=== PATIENT | male | born 1945 | race Asian ===

== ENCOUNTER 2020-06-15 08:52 | Outpatient (REF) | payer MEDICAID, SELFPAY ==
[2020-06-15 11:10] LABS: MANUAL DIFF FLAG NO
[2020-06-15 11:15] LABS: Basophils Absolute Auto 0.1 X10*3/uL (0.0-0.2); Basophils Percent Auto 0.9 % (0-2); Eosinophils Percent Auto 0.5 % (0-4); Hematocrit 41.4 % (42-52); Hemoglobin 13.4 g/dl (14.0-18.0); Imm Gran Abs Auto 0.01 X10*3/uL (0.00-0.03); Imm Gran Pct Auto 0.2 % (0.0-0.4); Lymphocytes Absolute Auto 2.8 X10*3/uL (1.2-4.9); Lymphocytes Percent Auto 42.4 % (20-40); Mean Corpuscular HGB Conc 32.4 g/dl (31.0-36.0); Mean Corpuscular Hemoglobin 29.3 pg (27.0-33.0); Mean Corpuscular Volume 90.4 fL (80-98); Mean Platelet Volume 11.3 fL (9.4-12.4); Monocytes Absolute Auto 0.5 X10*3/uL (0.1-1.2); Monocytes Percent Auto 7.2 % (2-11); Neutrophils Absolute Auto 3.2 X10*3/uL (2.0-8.3); Neutrophils Percent Auto 48.8 % (45-73); Platelet Count 232 X10*3/uL (160-400); Red Blood Count 4.58 X10*6/uL (4.60-5.80); Red Cell Distribution Width 12.2 % (11.0-16.0); White Blood Count 6.5 X10*3/uL (4.8-10.8)
[2020-06-15 12:10] LABS: TSH reflex Free T4 0.75 uIU/mL (0.32-4.0)
[2020-06-15 12:15] LABS: Alanine Aminotransferase 26 U/L (0-40); Albumin Level 4.4 g/dL (3.5-5.0); Alkaline Phosphatase 89 U/L (39-117); Anion Gap 15 (12-20); Aspartate Amino Transferase 16 U/L (5-37); Bilirubin Direct 0.3 mg/dL (0.0-0.5); Bilirubin Total 0.8 mg/dL (0.0-1.0); Blood Urea Nitrogen 12 mg/dL (9-16); Calcium 9.2 mg/dL (8.4-10.2); Carbon Dioxide 26 mmol/L (22-29); Chloride 105 mmol/L (96-108); Cholesterol 139 mg/dL; Estimated Glomerular Filt Rate > 60; Glucose Fasting 90 mg/dL (60-99); HDL Cholesterol 41 mg/dL; LDL Cholesterol Calculated 74 mg/dl; Potassium 3.7 mmol/L (3.3-5.1); Sodium 142 mmol/L (135-145); Total Protein 7.3 g/dL (6.5-8.0); Triglycerides 124 mg/dL; Uric Acid 8.1 mg/dL (3.4-7.0)
[2020-06-15 12:50] LABS: Prostate Specific Antigen 1.33 ng/mL (<0.05-4.0)
== END 2020-06-15 08:53 | disposition home or self-care (01) ==
LOC: HO.HMGCLDS 08:52
PROVIDERS: PCP Internal Medicine; Visit Provider Internal Medicine
DX: E78.9 Disorder of lipoprotein metabolism, unspecified (principal); I10 Essential (primary) hypertension; Z12.11 Encounter for screening for malignant neoplasm of colon; Z76.89 Persons encountering health services in other specified circumstances
CPT/HCPCS: 36415; 80048; 80061; 80076; 84153; 84443; 84550; 85025

== ENCOUNTER 2020-07-02 14:30 | Outpatient (REF) | payer MEDICAID, SELFPAY ==
--- NOTE | ~2020-07-02 | XR_ITS ---
EXAMINATION: XR CHEST CLINICAL INFORMATION: Essential hypertension COMPARISON: None TECHNIQUE: 2 views of the chest were obtained. FINDINGS: The lungs are well expanded. There is no focal consolidation, edema, or effusion. No pneumothorax. The cardiomediastinal silhouette is within normal limits. No acute osseous abnormality. XR/XR chest 2V IMPRESSION: No acute pulmonary finding.
--- NOTE | 2020-07-02 15:53 | ECG_ITS ---
Test Reason : PREOP Blood Pressure : / mmHG Vent. Rate : 069 BPM Atrial Rate : 069 BPM P-R Int : 214 ms QRS Dur : 088 ms QT Int : 422 ms P-R-T Axes : 058 055 085 degrees QTc Int : 452 ms Sinus rhythm with 1st degree A-V block Increased R/S ratio in V1, consider early transition or posterior infarct Abnormal ECG No previous ECGs available Referred By: Turner Torres Electronically Signed By:Calixto Heller
== END 2020-07-02 14:31 | disposition home or self-care (01) ==
LOC: HO.XRAY 14:30
PROVIDERS: Visit Provider Internal Medicine Gastroenterology
DX: I10 Essential (primary) hypertension (principal)
CPT/HCPCS: 71046; 93005; 99202

== ENCOUNTER 2020-07-09 10:32 | Emergency (ER) | payer MEDICAID, SELFPAY ==
--- NOTE | ~2020-07-09 | XR_ITS ---
EXAMINATION: XR WRIST, RIGHT CLINICAL INFORMATION: Pain COMPARISON: None TECHNIQUE: The right wrist is imaged in 4 views. FINDINGS: There is no fracture, dislocation, or destructive process. 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 There is no focal joint narrowing or erosive change. There is borderline narrowing triscaphe joint. There is tiny subchondral cyst distal ulnar. There is no definite chondrocalcinosis. Bony mineralization is normal. The pronator quadratus fat pad is normal. XR/XR wrist RT min 3V IMPRESSION: 1. Congenital lunotriquetral fusion. 2. No fracture, dislocation, or erosive changes.
[2020-07-09 10:43] VITALS: BP 151/88; BP 164/85; PULSE 79; RESP 18; TEMP 36.6; O2SAT 98; BMI 28.0
--- NOTE | 2020-07-09 10:59 | ED_ITS ---
HPI - Extremity Problem General Chief complaint: Extremity Problem Stated complaint: RIGHT WRIST PAIN NO KNOWN INJURY Time Seen by Provider: 07/09/20 10:53 History of Present Illness HPI Narrative: Complains of pain in the right wrist over the past 12 hours, patient has history of gout, there has been no fever chills, no swelling of any other joint, denies any rash, pain is mild to moderate, it is very painful to attempt to bend his wrist or extend his wrist Related Data Home Medications Medication Instructions Recorded Confirmed atorvastatin 40 mg tablet 40 mg PO DAILY 06/12/20 07/10/20 Previous Rx's Medication Instructions Recorded atenolol 50 mg tablet 50 mg PO BID 90 Days #180 tab 06/12/20 bisacodyl 5 mg tablet,delayed 10 mg PO BEDTIME 2 Days #4 tab 07/02/20 release polyethylene glycol 3350 17 17 g PO DAILY 1 Days #238 g 07/02/20 gram/dose oral powder naproxen [Naprosyn] 500 mg PO BID #14 tab 07/09/20 prednisone 60 mg PO DAILY 4 Days #12 tab 07/09/20 Allergies Allergy/AdvReac Type Severity Reaction Status Date / Time Sulfa (Sulfonamide Allergy Severe ANAPHYLAXIS Verified 07/10/20 11:14 Antibiotics) [SULFA (SULFONAMIDE ANTIBIOTICS)] Review of Systems Review of Systems: Positive for right wrist pain Negatives are no fever no chills no dizziness no neck pain no back pain no skin rash no pain in any other joints no numbness or weakness Yes all other systems are reviewed and are negative [facility] Past Medical History Attestation statement: The following information was validated with the patient. 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 Physical Exam Vital Signs: Vital Signs: Last Vital Signs Temp 98.8 F 07/09/20 11:49 Pulse 64 07/09/20 11:49 Resp 18 07/09/20 11:49 BP 166/84 H 07/09/20 11:49 Pulse Ox 97 07/09/20 11:49 Body Mass Index 28.0 General appearance is no acute distress relaxed and cooperative Head is normocephalic atraumatic The neck is supple Respiratory no acute distress The back has full range of motion Extremities the right wrist is mildly swollen, it is not red or warm, range of motion is limited on flexion and extendsion, it is neurovascular intact distal, skin color is normal The rest of extremities are normal and his gait is normal Skin no rash Neuro no focal deficit motor is 5/5 x4, sensation is intact and symmetrical, patient is A&O x3 Course Course Course Narrative: Doubt septic arthritis as patient's pain was relieved signif icantly with Naprosyn, white count was normal, ESR was normal and CRP was normal, uric acid was upper limit of normal, but does not always correlate with gout flare Patient's symptoms most likely from gout so patient is started on prednisone X-ray of the right wrist did not reveal any acute abnormalities MDM - Extremity (Nontraumatic) Lab Data Result diagrams: 07/09/20 12:17 Labs: Lab Results 07/09/20 07/09/20 07/09/20 Range/Units 12:17 12:17 12:17 WBC (4.8-10.8) X10*3/uL RBC (4.60-5.80) X10*6/uL Hgb (14.0-18.0) g/dl Hct (42-52) % MCV (80-98) fL MCH (27.0-33.0) pg MCHC (31.0-36.0) g/dl RDW (11.0-16.0) % Plt Count (160-400) X10*3/uL MPV (9.4-12.4) fL Immature Gran % (Auto) (0.0-0.4) % Neut % (Auto) (45-73) % Lymph % (Auto) (20-40) % [place] % (Auto) (2-11) % Eos % (Auto) (0-4) % Baso % (Auto) (0-2) % Lymph # (Auto) (1.2-4.9) X10*3/uL [place] # (Auto) (0.1-1.2) X10*3/uL Eos # (Auto) (0.0-0.4) X10*3/uL Baso # (Auto) (0.0-0.2) X10*3/uL Abs Immat Gran (auto) (0.00-0.03) X10*3/uL Absolute Neuts (auto) (2.0-8.3) X10*3/uL Absolute Nucleated RBC (0.0-0.012) X10*3/uL Nucleated RBC % (auto) (0.0-0.2) /100WBC ESR 13 (0-15) MM/HR Uric Acid 7.0 (3.4-7.0) mg/dL C-Reactive Protein 0.10 (< or = 0.50) mg/dL 07/09/20 Range/Units 12:17 WBC 8.6 (4.8-10.8) X10*3/uL RBC 4.41 L (4.60-5.80) X10*6/uL Hgb 13.1 L (14.0-18.0) g/dl Hct 40.1 L (42-52) % MCV 90.9 (80-98) fL MCH 29.7 (27.0-33.0) pg MCHC 32.7 (31.0-36.0) g/dl RDW 12.4 (11.0-16.0) % Plt Count 216 (160-400) X10*3/uL MPV 10.8 (9.4-12.4) fL Immature Gran % (Auto) 0.3 (0.0-0.4) % Neut % (Auto) 70.5 (45-73) % Lymph % (Auto) 20.3 (20-40) % [place] % (Auto) 7.6 (2-11) % Eos % (Auto) 0.5 (0-4) % Baso % (Auto) 0.8 (0-2) % Lymph # (Auto) 1.8 (1.2-4.9) X10*3/uL [place] # (Auto) 0.7 (0.1-1.2) X10*3/uL Eos # (Auto) 0.0 (0.0-0.4) X10*3/uL Baso # (Auto) 0.1 (0.0-0.2) X10*3/uL Abs Immat Gran (auto) 0.03 (0.00-0.03) X10*3/uL Absolute Neuts (auto) 6.1 (2.0-8.3) X10*3/uL Absolute Nucleated RBC 0.000 (0.0-0.012) X10*3/uL Nucleated RBC % (auto) 0.0 (0.0-0.2) /100WBC ESR (0-15) MM/HR Uric Acid (3.4-7.0) mg/dL C-Reactive Protein (< or = 0.50) mg/dL Discharge Plan Discharge Clinical Impression: Gout Patient Disposition: Home, Self-Care Instructions: Gout (ED) Additional Instructions: This is unlikely to be an infected joint and we are treating for probable gout Follow as scheduled with her primary doctor tomorrow for re-evaluation Return to ER any time for spreading redness worse pain and swelling fever, any worse condition or any concerns Prescriptions: New naproxen [Naprosyn] 500 mg tablet 500 mg PO BID Qty: 14 RF: 0 prednisone 20 mg tablet 60 mg PO DAILY 4 Days Qty: 12 RF: 0 No Action atorvastatin 40 mg tablet 40 mg PO DAILY RF: 0 atenolol 50 mg tablet 50 mg PO BID 90 Days Qty: 180 RF: 0 bisacodyl [Dulcolax (bisacodyl)] 5 mg tablet,delayed release (DR/EC) 10 mg PO BEDTIME 2 Days Qty: 4 RF: 0 polyethylene glycol 3350 [Miralax] 17 gram/dose powder 17 g PO DAILY 1 Days Qty: 238 RF: 0 Interventions: ED Discharge Assessment Last Done: 07/09/20 14:03 Discharge Date/Time: 07/09/20 14:04
[2020-07-09 11:49] VITALS: BP 166/84; PULSE 64; RESP 18; TEMP 37.1; O2SAT 97
[2020-07-09] MEDS: NaPROXEN 500 MG TABLET PO (12:08)
[2020-07-09 12:26] LABS: MANUAL DIFF FLAG NO
[2020-07-09 12:30] LABS: Basophils Absolute Auto 0.1 X10*3/uL (0.0-0.2); Basophils Percent Auto 0.8 % (0-2); Eosinophils Percent Auto 0.5 % (0-4); Hematocrit 40.1 % (42-52); Hemoglobin 13.1 g/dl (14.0-18.0); Imm Gran Abs Auto 0.03 X10*3/uL (0.00-0.03); Imm Gran Pct Auto 0.3 % (0.0-0.4); Lymphocytes Absolute Auto 1.8 X10*3/uL (1.2-4.9); Lymphocytes Percent Auto 20.3 % (20-40); Mean Corpuscular HGB Conc 32.7 g/dl (31.0-36.0); Mean Corpuscular Hemoglobin 29.7 pg (27.0-33.0); Mean Corpuscular Volume 90.9 fL (80-98); Mean Platelet Volume 10.8 fL (9.4-12.4); Monocytes Absolute Auto 0.7 X10*3/uL (0.1-1.2); Monocytes Percent Auto 7.6 % (2-11); Neutrophils Absolute Auto 6.1 X10*3/uL (2.0-8.3); Neutrophils Percent Auto 70.5 % (45-73); Platelet Count 216 X10*3/uL (160-400); Red Blood Count 4.41 X10*6/uL (4.60-5.80); Red Cell Distribution Width 12.4 % (11.0-16.0); White Blood Count 8.6 X10*3/uL (4.8-10.8)
[2020-07-09 13:18] LABS: Erythrocyte Sedimentation Rate 13 MM/HR (0-15)
[2020-07-09] MEDS: Acetaminophen 325 MG TABLET 975 MG PO (13:52)
[2020-07-09] MEDS: predniSONE 20 MG TABLET 60 MG PO (13:52)
== END 2020-07-09 14:04 | disposition home or self-care (01) ==
PROVIDERS: Physician Assistant Medical; Emergency Provider Emergency Medicine; PCP Internal Medicine
DX: M10.031 Idiopathic gout, right wrist (principal); I10 Essential (primary) hypertension; E78.5 Hyperlipidemia, unspecified
CPT/HCPCS: 36415; 73110; 84550; 85025; 85652; 86140; 99283; 99284

== ENCOUNTER 2020-07-30 07:32 | Day surgery (SDC) | payer MEDICAID, SELFPAY ==
[2020-07-24 10:06] VITALS: BMI 28.0
--- NOTE | 2020-07-27 09:36 | P.CONAN_ITS ---
Documented by User: Jennifer Oly 07/27/20 09:40 HPI - Anesthesia Eval Consult details Narrative: 75yo M for Upper Endoscopy and Colonoscopy PMF Active Problems Active Problems: All Active Problems (Updated 07/10/20 @ 11:41 by Kaitlyn Bowman MD) Gouty arthritis (Acute) Hospital discharge follow-up (Acute) Anemia (Acute) Lipid disorder (Acute) Hypertension, essential (Acute) Colon cancer screening (Acute) Establishing care with new doctor, encounter for (Acute) Past Medical History Medical History Hyperlipidemia Hypertension Surgical History Surgical History (Updated 07/30/20 @ 08:17 by Marta Cartagena) H/O hemorrhoidectomy Social History Social History Household Members: Spouse Are you a primary md do resident urgent care to a significant other at home: No Do you presently have visiting nurse or other home services: No Alcohol intake: never Smoking Status: Never smoker Use of substances other than those prescribed or required for medical reasons: No Have you been hit, kicked, punched, or otherwise hurt by someone within the past year? 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 Meds Allergies Allergy/AdvReac Type Severity Reaction Status Date / Time Sulfa (Sulfonamide Allergy Severe ANAPHYLAXIS Verified 07/10/20 11:14 Antibiotics) [SULFA (SULFONAMIDE ANTIBIOTICS)] Home Medications Medication Instructions Recorded Confirmed Last Taken Type atorvastatin 40 mg tablet 40 mg PO DAILY 06/12/20 07/24/20 Unknown History Exam Exam Date and Time: July 27, 2020 0936 Height,Weight and Vital Signs: Height 5 ft 9 in Weight 86.183 kg Pertinent Lab Results Pertinent Lab Results: Laboratory Tests 06/15/20 07/09/20 09:02 12:17 WBC 8.6 Hgb 13.1 L Hct 40.1 L Plt Count 216 Sodium 142 Potassium 3.7 Chloride 105 Carbon Dioxide 26 BUN 12 Creatinine 0.99 Narrative Narrative: EKG 06/2020 Vent. Rate : 069 BPM Atrial Rate : 069 BPM P-R Int : 214 ms QRS Dur : 088 ms QT Int : 422 ms P-R-T Axes : 058 055 085 degrees QTc Int : 452 ms Sinus rhythm with 1st degree A-V block Increased R/S ratio in V1, consider early transition or posterior infarct Abnormal ECG No previous ECGs available XR chest 2V 06/2020 IMPRESSION: No acute pulmonary finding. Assessment and Plan Assessment Anesthesia Assessment: Chart Reviewed Documented by User: Marta Cartagena 07/30/20 08:20 [facility] Past Medical History Medical History Hyperlipidemia Hypertension Family History Family history of problems with anesthesia: No Surgical History Surgical History (Updated 07/30/20 @ 08:17 by Marta Cartagena) H/O hemorrhoidectomy History of Problems with Anesthesia: No Social History Social History Household Members: Spouse Are you a primary md do resident urgent care to a significant other at home: No Do you presently have visiting nurse or other home services: No Alcohol intake: never Smoking Status: Never smoker Use of substances other than those prescribed or required for medical reasons: No Have you been hit, kicked, punched, or otherwise hurt by someone within the past year? 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 Meds Allergies Allergy/AdvReac Type Severity Reaction Status Date / Time Sulfa (Sulfonamide Allergy Severe ANAPHYLAXIS Verified 07/10/20 11:14 Antibiotics) [SULFA (SULFONAMIDE ANTIBIOTICS)] Home Medications Medication Instructions Recorded Confirmed Last Taken Type atorvastatin 40 mg tablet 40 mg PO DAILY 06/12/20 07/24/20 Unknown History Exam Height,Weight and Vital Signs: Vital Signs Temp Pulse Resp BP Pulse Ox 07/30/20 08:08 98.1 F 74 16 161/98 H 97 Airway Mallampati Class: II TM Dist: >3cm Neck ROM: Full Denture: Upper and Lower Heart: RRR Lungs: CTAB Assessment and Plan Assessment Anesthesia Assessment: Anesthesia Plan Discussed and Chart Reviewed Final Anesthetic Review NPO: Yes ASA Class: II Final Preanesthetic Review: No Changes in Pt Med Stat, Meds/Allgs Chart Reviewed, Consent Obtained/Reviewed and Anes Risks/Benef Reviewed Patient Risk: Low Procedure Risk: Low Assessment/Block/Sedation in SS: Assess/Block/Sedation-SS Anesthetic Plan Anesthetic Plan: MAC: Disposition: Standard PACU
--- NOTE | 2020-07-30 08:05 | W.PM.OPN ---
Operative Note Operative Note Date of Service: 07/30/20 Narrative: Pre-op diagnosis: Colon cancer screening, anemia Post-op diagnosis: other (Gastritis, colon polyp, diverticulosis or hemorrhoids) Procedure: FLEXIBLE TRANSORAL UPPER GASTROINTESTINAL ENDOSCOPY WITH BIOPSIES AND COLONOSCOPY TILL CECUM WITH BIOPSIES AND SNARE POLYPECTOMY UPPER ENDOSCOPY Consent: Indications for the procedure and potential complications of bleeding, perforation, reaction to medications and missed diagnosis were discussed with the patient and informed consent was obtained. Instrument: Olympus GIF H 190 mid size upper endoscope Monitoring: Vital signs and clinical assessment, continuous EKG monitoring, Pulse oximetry, Carbon Dioxide monitoring and blood pressure monitoring were done throughout the procedure. Procedure: The patient was placed in the left lateral decubitis position and pre-procedure medications were administered and a bite block was placed. The endoscope was inserted into the mouth and advanced under direct vision to the third part of duodenum. A careful inspection was made as the upper endoscope was withdrawn including a retroflexed examination of the proximal stomach; Findings and interventions are described below. Findings: Larynx: Normal Esophagus: GE junction at 38 cms. No esophagitis or Apple's. Stomach: Mild gastric erythema. Biopsies were obtained. Grade 2 flap valve on retroflexed examination of the cardia. Duodenum: Normal bulb and descending duodenum. Biopsies obtained from 3rd part of duodenum to check for celiac sprue. Intervention: Biopsies as noted above COLONOSCOPY PROCEDURE NOTE Consent: Indications for the procedure and potential complications of bleeding, perforation, reaction to medications and missed diagnosis were discussed with the patient and informed consent was obtained. Instrument: Olympus PCF H 190 L variable stiffness pediatric colonoscope Monitoring: Vital signs and clinical assessment, intermittent blood pressure monitoring, continuous EKG monitoring, Pulse oximetry and Carbon Dioxide monitoring were done throughout the procedure. Colon withdrawl time was 33 minutes. Procedure: The patient was placed in the left lateral decubitis position and pre-procedure medications were administered. After a digital rectal examination of the ano-rectum, the video colonoscope was inserted into the rectum and advanced through the colon to the cecum. The colonoscope was slowly withdrawn in a retrograde panoramic fashion and the colon mucosa was carefully examined including a retroflexed view of the rectum. Findings and interventions are described below. Procedure Difficulty: : LLQ pressure applied to intubate the cecum Findings: Terminal Ileum: Not evaluated Cecum: Normal Ascending Colon: Normal Transverse Colon: A 10-12 mm sessile polyp inadvertently removed with a cold snare and polypectomy site treated with cautery using the snare tip. Descending Colon: Two 4-6 mm sessile polyps removed with a cold biopsy Sigmoid Colon: A 7-8 mm sessile polyp removed with a cold snare and moderate diverticulosis Rectum: Normal Ano-rectum: Moderate internal hemorrhoids Colon preparation: Good after copious irrigation and fair in the left colon Impression and Post Procedure Diagnosis: Endoscopy Findings: STOMACH: Mild antral gastritis DUODENUM: Normal - biopsied to check for celiac sprue Colonoscopy Findings: Four small to medium sized polyps removed Moderate diverticulosis seen in the sigmoid colon Moderate hemorrhoids on retroflexed exam. Plan: Await pathology results Patient has an appointment on 08/16/20 in the GI [facility] with Turner Torres M.D. Repeat Colonoscopy interval based on path results - in 3-5 years if polyps are adenomatous and 10 years if polyps are hyperplastic. Above findings were reviewed with the patient and colon polyps and diverticulosis handouts were given in the discharge area Surgeon: Turner Torres MD Anesthesia: MAC (Lisa Heredia, LESLEE) Rest Room Attendant: Kristin Lopez Estimated blood loss (mL): 0 Pathology: other (A. SMALL BOWEL BXS, R/O CELIAC B. GASTRIC ANTRUM, R/O H. PYLORI C. TRANSVERSE COLON POLYP D. DESCENDING COLON POLYPS E. SIGMOID POLYP) Condition: stable Disposition: PACU
--- NOTE | 2020-07-30 08:07 | MHC.SHP ---
Pre-Procedural Eval Section A The patient is an INPATIENT: No Changes since office visit: Yes Patient answered all questions; No Cold of Flu in the past 2 weeks, No New Medical Problems and No Changes in Medication The History & Physical has been completed within 30 days and I have reviewed it.: Yes Section B Chief Complaint: screening,epigastric pain Allergies: Allergies Allergy/AdvReac Type Severity Reaction Status Date / Time Sulfa (Sulfonamide Allergy Severe ANAPHYLAXIS Verified 07/10/20 11:14 Antibiotics) [SULFA (SULFONAMIDE ANTIBIOTICS)] Plan I have reviewed the history and physical and performed a pertinent physical examination on my patient. No changes have occurred unless specified.
[2020-07-30 08:08] VITALS: BP 161/98; PULSE 74; RESP 16; TEMP 36.7; O2SAT 97
[2020-07-30] MEDS: Lactated Ringers 1,000 ML 100 ML IVCONT (08:21)
[2020-07-30 09:36] VITALS: BP 130/79; PULSE 57; RESP 20; TEMP 36.1; O2SAT 98
[2020-07-30 09:51] VITALS: BP 127/72; PULSE 59; RESP 18; TEMP 36.1; O2SAT 95
== END 2020-07-30 10:31 | disposition home or self-care (01) ==
PROVIDERS: PCP Internal Medicine; Visit Provider Internal Medicine Gastroenterology
PROC: (CPT 45385; principal; 2020-07-30 08:30)
DX: Z12.11 Encounter for screening for malignant neoplasm of colon (principal); D12.3 Benign neoplasm of transverse colon; D12.4 Benign neoplasm of descending colon; K57.30 Diverticulosis of large intestine without perforation or abscess without bleeding; K64.8 Other hemorrhoids; D64.9 Anemia, unspecified; K29.70 Gastritis, unspecified, without bleeding; I10 Essential (primary) hypertension; Z79.899 Other long term (current) drug therapy; Z88.2 Allergy status to sulfonamides
CPT/HCPCS: 45385; 45380; 43239; 88305; 88342

== ENCOUNTER → 2020-09-03 10:37 | Outpatient (BNVA) | payer MEDICAID, SELFPAY | PROVIDERS: Visit Provider Internal Medicine Gastroenterology ==

== ENCOUNTER → 2020-11-12 13:24 | Outpatient (BNVA) | payer MEDICAID, SELFPAY | PROVIDERS: Referring Provider Internal Medicine; Visit Provider Internal Medicine Gastroenterology | DX: K29.70 Gastritis, unspecified, without bleeding (principal); D64.9 Anemia, unspecified; B96.81 Helicobacter pylori [H. pylori] as the cause of diseases classified elsewhere; Z86.010 Personal history of colon polyps | CPT/HCPCS: 99212 ==

== ENCOUNTER 2021-02-22 21:19 | Emergency (ER) | payer MEDICAID, SELFPAY ==
[2021-02-22 21:24] VITALS: BP 172/98
[2021-02-22 21:27] VITALS: BP 151/87; PULSE 76; RESP 18; TEMP 36.9; O2SAT 95; BMI 28.4
[2021-02-23 02:00] VITALS: BP 199/108; PULSE 65; RESP 16; TEMP 36.6; O2SAT 99
[2021-02-23 02:15] LABS: MANUAL DIFF FLAG NO
--- NOTE | 2021-02-23 02:15 | PC.NURSE ---
SHANTELLE ANDERSON IS AWARE OF PATIENT HIGH BLOOD PRESSURE .
[2021-02-23 02:18] LABS: Basophils Percent Auto 0.5 % (0-2); Eosinophils Absolute Auto 0.1 X10*3/uL (0.0-0.4); Eosinophils Percent Auto 1.5 % (0-4); Hematocrit 35.8 % (42-52); Hemoglobin 11.6 g/dl (14.0-18.0); Imm Gran Abs Auto 0.02 X10*3/uL (0.00-0.03); Imm Gran Pct Auto 0.3 % (0.0-0.4); Lymphocytes Absolute Auto 2.3 X10*3/uL (1.2-4.9); Mean Corpuscular HGB Conc 32.4 g/dl (31.0-36.0); Mean Corpuscular Hemoglobin 29.6 pg (27.0-33.0); Mean Corpuscular Volume 91.3 fL (80-98); Monocytes Absolute Auto 0.7 X10*3/uL (0.1-1.2); Monocytes Percent Auto 8.9 % (2-11); Neutrophils Absolute Auto 4.3 X10*3/uL (2.0-8.3); Neutrophils Percent Auto 57.8 % (45-73); Platelet Count 187 X10*3/uL (160-400); Red Blood Count 3.92 X10*6/uL (4.60-5.80); Red Cell Distribution Width 12.9 % (11.0-16.0); White Blood Count 7.4 X10*3/uL (4.8-10.8)
--- NOTE | 2021-02-23 02:28 | ECG_ITS ---
Test Reason : high blood pressure Blood Pressure : / mmHG Vent. Rate : 064 BPM Atrial Rate : 064 BPM P-R Int : 234 ms QRS Dur : 084 ms QT Int : 436 ms P-R-T Axes : 058 069 088 degrees QTc Int : 449 ms Sinus rhythm with 1st degree A-V block Minimal voltage criteria for LVH, may be normal variant ( Sokolow-Rendon ) Borderline ECG No significant changes seen Referred By: Marina Hubbard Electronically Signed By:ARELIS MUÑOZ MD
[2021-02-23 02:33] LABS: Alanine Aminotransferase 24 U/L (0-40); Albumin Level 3.9 g/dL (3.5-5.0); Alkaline Phosphatase 91 U/L (39-117); Anion Gap 12 (12-20); Aspartate Amino Transferase 16 U/L (5-37); Bilirubin Total 0.7 mg/dL (0.0-1.0); Blood Urea Nitrogen 20 mg/dL (9-16); COVID-19 Test Negative (Negative); Calcium 8.6 mg/dL (8.4-10.2); Carbon Dioxide 24 mmol/L (22-29); Chloride 108 mmol/L (96-108); Creatinine Clr Calc Pharmacy 57.2; Estimated Glomerular Filt Rate 59; Glucose Random 99 mg/dL (60-115); Potassium 3.9 mmol/L (3.3-5.1); Sodium 140 mmol/L (135-145); Total Protein 6.5 g/dL (6.5-8.0)
[2021-02-23 02:36] LABS: Troponin-I High Sensitivity < 3.5 ng/L (<3.5-35.0)
--- NOTE | 2021-02-23 02:41 | ED.HA ---
HPI - Headache General Chief Complaint: Headache Stated Complaint: ear ache/headache Time Seen by Provider: 02/23/21 02:15 Source: patient Mode of arrival: EMS History of Present Illness HPI Narrative: 75-year-old male with headache since noon on left side without neuro symptoms as well as describing some chest discomfort that was not associated with nausea, dizziness, shortness of breath and denies that it radiated anywhere and has improved since noon. Patient did take Tylenol at approximately 3:00 p.m. this afternoon and otherwise states that he is taking his blood pressure medication. He states he otherwise simply does not feel well though he denies any GI or symptoms. Related Data Previous Rx's Medication Instructions Recorded walker with wheels and seat #1 ea 12/25/20 walker #1 ea 12/25/20 atenolol 50 mg tablet 50 mg PO BID 90 Days #180 tab 01/01/21 atorvastatin 40 mg tablet 40 mg PO DAILY 90 Days #90 tab 01/01/21 indomethacin 50 mg capsule 50 mg PO BID #14 cap 01/01/21 amoxicillin 875 mg-potassium 1 tab PO Q12H #20 tab 01/31/21 clavulanate 125 mg tablet (Augmentin) prednisone 20 mg tablet 40 mg PO DAILY #10 tab 01/31/21 Allergies Allergy/AdvReac Type Severity Reaction Status Date / Time Sulfa (Sulfonamide Allergy Severe ANAPHYLAXIS Verified 01/31/21 11:07 Antibiotics) [SULFA (SULFONAMIDE ANTIBIOTICS)] [facility] Past Medical History Medical History Hyperlipidemia Hypertension Surgical History H/O hemorrhoidectomy Hx of colonoscopy Hx of esophagogastroduodenoscopy Social History Social History Household Members: Spouse Are you a primary account executive healthcare to a significant other at home: No Do you presently have visiting nurse or other home services: No Alcohol intake: never Advance Directives: No Current occupational status: employed 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 Review of all investigations there are no acute findings and patient is blood pressure noted to respond or to antihypertensives and his headache is completely resolved after receiving Tylenol. There were no focal findings to suggest acute intracranial pathology therefore CT scan of the head was not completed. Serial troponins and EKG are without acute findings. MDM - Headache Lab Data Result diagrams: 02/23/21 02:11 02/23/21 02:11 Labs: Lab Results 02/23/21 02/23/21 02/23/21 Range/Units 02:11 02:11 02:11 WBC 7.4 (4.8-10.8) X10*3/uL RBC 3.92 L (4.60-5.80) X10*6/uL Hgb 11.6 L (14.0-18.0) g/dl Hct 35.8 L (42-52) % MCV 91.3 (80-98) fL MCH 29.6 (27.0-33.0) pg MCHC 32.4 (31.0-36.0) g/dl RDW 12.9 (11.0-16.0) % Plt Count 187 (160-400) X10*3/uL MPV 11.0 (9.4-12.4) fL Immature Gran % (Auto) 0.3 (0.0-0.4) % Neut % (Auto) 57.8 (45-73) % Lymph % (Auto) 31.0 (20-40) % [place] % (Auto) 8.9 (2-11) % Eos % (Auto) 1.5 (0-4) % Baso % (Auto) 0.5 (0-2) % Lymph # (Auto) 2.3 (1.2-4.9) X10*3/uL [place] # (Auto) 0.7 (0.1-1.2) X10*3/uL Eos # (Auto) 0.1 (0.0-0.4) X10*3/uL Baso # (Auto) 0.0 (0.0-0.2) X10*3/uL Abs Immat Gran (auto) 0.02 (0.00-0.03) X10*3/uL Absolute Neuts (auto) 4.3 (2.0-8.3) X10*3/uL Absolute Nucleated RBC 0.000 (0.0-0.012) X10*3/uL Nucleated RBC % (auto) 0.0 (0.0-0.2) /100WBC Sodium 140 (135-145) mmol/L Potassium 3.9 (3.3-5.1) mmol/L Chloride 108 (96-108) mmol/L Carbon Dioxide 24 (22-29) mmol/L Anion Gap 12 (12-20) BUN 20 H D (9-16) mg/dL Creatinine 1.21 (0.5-1.4) mg/dL Estim Creat Clear Calc 57.2 Estimated GFR 59 Random Glucose 99 (60-115) mg/dL Calcium 8.6 D (8.4-10.2) mg/dL Total Bilirubin 0.7 (0.0-1.0) mg/dL AST 16 (5-37) U/L ALT 24 (0-40) U/L Alkaline Phosphatase 91 (39-117) U/L Troponin I High Sens (<3.5-35.0) ng/L Total Protein 6.5 (6.5-8.0) g/dL Albumin 3.9 (3.5-5.0) g/dL COVID-19 (CABRERA) Negative (Negative) COVID-19 Clin Com See Note 02/23/21 02/23/21 Range/Units 02:11 05:55 WBC (4.8-10.8) X10*3/uL RBC (4.60-5.80) X10*6/uL Hgb (14.0-18.0) g/dl Hct (42-52) % MCV (80-98) fL MCH (27.0-33.0) pg MCHC (31.0-36.0) g/dl RDW (11.0-16.0) % Plt Count (160-400) X10*3/uL MPV (9.4-12.4) fL Immature Gran % (Auto) (0.0-0.4) % Neut % (Auto) (45-73) % Lymph % (Auto) (20-40) % [place] % (Auto) (2-11) % Eos % (Auto) (0-4) % Baso % (Auto) (0-2) % Lymph # (Auto) (1.2-4.9) X10*3/uL [place] # (Auto) (0.1-1.2) X10*3/uL Eos # (Auto) (0.0-0.4) X10*3/uL Baso # (Auto) (0.0-0.2) X10*3/uL Abs Immat Gran (auto) (0.00-0.03) X10*3/uL Absolute Neuts (auto) (2.0-8.3) X10*3/uL Absolute Nucleated RBC (0.0-0.012) X10*3/uL Nucleated RBC % (auto) (0.0-0.2) /100WBC Sodium (135-145) mmol/L Potassium (3.3-5.1) mmol/L Chloride (96-108) mmol/L Carbon Dioxide (22-29) mmol/L Anion Gap (12-20) BUN (9-16) mg/dL Creatinine (0.5-1.4) mg/dL Estim Creat Clear Calc Estimated GFR Random Glucose (60-115) mg/dL Calcium (8.4-10.2) mg/dL Total Bilirubin (0.0-1.0) mg/dL AST (5-37) U/L ALT (0-40) U/L Alkaline Phosphatase (39-117) U/L Troponin I High Sens < 3.5 < 3.5 (<3.5-35.0) ng/L Total Protein (6.5-8.0) g/dL Albumin (3.5-5.0) g/dL COVID-19 (CABRERA) (Negative) COVID-19 Clin Com ECG Data Attestation: I personally reviewed and interpreted this ECG as follows: Prior ECG tracings: available for review (07/09/2020 no acute changes on comparison) Interpretation: Sinus rhythm with first-degree AV block, HR-64, no STEMI, QRS/QTC are within normal limits. Discharge Plan Discharge Clinical Impression: Hypertension, Chest pain Patient Disposition: Home, Self-Care Instructions: Chest Pain (ED) Additional Instructions: 1. Continue with your home medication. 2. Follow-up with your primary care provider on Thursday morning. Return to the ER for acute worsening of symptoms. Prescriptions: No Action (DME) walker with wheels and seat See Rx Instructions .Route .MEDSUPPLY Qty: 1 RF: 0 atenolol 50 mg tablet 50 mg PO BID 90 Days Qty: 180 RF: 0 atorvastatin 40 mg tablet 40 mg PO DAILY 90 Days Qty: 90 RF: 0 indomethacin 50 mg capsule 50 mg PO BID Qty: 14 RF: 0 prednisone 20 mg tablet 40 mg PO DAILY Qty: 10 RF: 0 amoxicillin-pot clavulanate [Augmentin] 875-125 mg tablet 1 tab PO Q12H Qty: 20 RF: 0 Referrals: Physician,Unknown J [Primary Care Provider] - 2 days
[2021-02-23] MEDS: amLODIPine Besylate 2.5 MG TABLET 7.5 MG PO (03:17)
[2021-02-23] MEDS: Acetaminophen 325 MG TABLET 975 MG PO (03:17)
[2021-02-23 04:38] VITALS: BP 140/69; PULSE 72; RESP 16; TEMP 36.2; O2SAT 95
[2021-02-23 05:50] VITALS: BP 148/72; PULSE 72; RESP 16; TEMP 36.1; O2SAT 95
[2021-02-23 06:23] LABS: Troponin-I High Sensitivity < 3.5 ng/L (<3.5-35.0)
== END 2021-02-23 07:33 | disposition home or self-care (01) ==
PROVIDERS: Emergency Provider Student in an Organized Health Care Education/Training Program
DX: R07.9 Chest pain, unspecified (principal); R51.9 Headache, unspecified; I10 Essential (primary) hypertension; Z20.822 Contact with and (suspected) exposure to COVID-19; Z79.899 Other long term (current) drug therapy
CPT/HCPCS: 0241U; 36415; 70450; 80048; 80053; 81003; 82550; 83735; 84484; 85025; 85610; 85730; 87635; 93005; 96365; 99283; 99284; 99285; 99291

== ENCOUNTER 2021-02-23 14:31 | Emergency (ER) | payer MEDICAID, SELFPAY ==
--- NOTE | 2021-02-23 | ECG_ITS ---
Test Reason : CHEST PAIN Blood Pressure : / mmHG Vent. Rate : 075 BPM Atrial Rate : 075 BPM P-R Int : 230 ms QRS Dur : 086 ms QT Int : 388 ms P-R-T Axes : 040 062 084 degrees QTc Int : 433 ms Sinus rhythm with 1st degree A-V block Nonspecific T wave abnormality Nonspecific ST abnormality Abnormal ECG No significant changes seen Referred By: Caitlin Bradford Electronically Signed By:ARELIS MUÑOZ MD
--- NOTE | ~2021-02-23 | CT_ITS ---
EXAMINATION: CT HEAD WITHOUT CONTRAST CLINICAL INFORMATION: Headache COMPARISON: None TECHNIQUE: Contiguous axial imaging was performed from the skull base to vertex without intravenous administration of contrast. This CT examination was performed using dose optimization techniques as appropriate, variously including the following: *Automated exposure control *Adjustment of mA and/or kV according to patient size (this includes techniques or standardized protocols for targeted exams where dose is matched to indication/reason for exam; i.e. extremities or head) *Use of iterative reconstruction technique DLP: 680 mGy-cm FINDINGS: Subdural hematoma layers along the right hemisphere predominantly involving the right frontal and parietal lobes. At the right high frontal convexity this measures approximately 1.2 cm as seen on the coronal view. There is 1 cm of leftward midline shift. The basal cisterns maintain patency. No acute territorial infarction. Calvarium is intact. Limited views of the paranasal sinuses are unremarkable. Mastoid air cells are well aerated and middle ear cavities are clear. Limited views of the orbits are unremarkable. CT/CT head/brain wo con IMPRESSION: There is a heterogeneous collection of fluid along the right frontoparietal convexity consistent with either subacute or acute on chronic subdural hematoma. This results in 1 cm leftward midline shift and compression of the right lateral ventricle. This critical result was discussed with Sandi BAH at 1545 hours on 02/23/2021 and it was ascertained that the content and urgency of the report was understood at the time of direct communication.
[2021-02-23 14:37] VITALS: PULSE 77; RESP 16; O2SAT 98; BMI 28.5
--- NOTE | 2021-02-23 14:45 | ED.GENADULT ---
HPI - General Adult General Chief complaint: Headache Stated complaint: head pain Time Seen by Provider: 02/23/21 14:39 Source: patient Mode of arrival: EMS Limitations: no limitations History of Present Illness HPI narrative: 75 year old male past medical history significant for hypertension, hyperlipidemia presents to the ED with weakness and headache x1 day. He reports generalized weakness, malaise, since being discharged from the hospital here yesterday. He also reports a frontal headache, he describes it as constant in nature, tightness localized to the front of his head bilateral without radiation. He denies changes in vision, photophobia, scotomas, chest pain, shortness of breath, fevers, chills, nausea, vomiting, diarrhea, abdominal pain, confusion, facial pressure, rhinorrhea, sore throat. No falls or injuries reported. No AC therapy or ASA. Denies alcohol use. Onset (ago): day(s) (1) Location: head Radiation: non-radiation Severity: severe Severity scale (1-10): 10 Quality: constant and other (tightnesss) Pain Consistency: constant Relieving factors: none Exacerbating factors: none Associated symptoms: weakness (generalized ) Treatments prior to arrival: none Related Data Previous Rx's Medication Instructions Recorded walker with wheels and seat #1 ea 12/25/20 walker #1 ea 12/25/20 atenolol 50 mg tablet 50 mg PO BID 90 Days #180 tab 01/01/21 atorvastatin 40 mg tablet 40 mg PO DAILY 90 Days #90 tab 01/01/21 indomethacin 50 mg capsule 50 mg PO BID #14 cap 01/01/21 amoxicillin 875 mg-potassium 1 tab PO Q12H #20 tab 01/31/21 clavulanate 125 mg tablet (Augmentin) prednisone 20 mg tablet 40 mg PO DAILY #10 tab 01/31/21 Allergies Allergy/AdvReac Type Severity Reaction Status Date / Time Sulfa (Sulfonamide Allergy Severe ANAPHYLAXIS Verified 01/31/21 11:07 Antibiotics) [SULFA (SULFONAMIDE ANTIBIOTICS)] Review of Systems Review of Systems: Yes all other systems are reviewed and are negative Constitutional: Constitutional: Reports no additional constitutional complaints, Denies body ache(s), Denies chills, Denies fever(s), Reports headache(s) and Reports weakness Eyes: Eyes: Reports no additional eye complaints and Denies change in vision ENT: Reports system reviewed and no additional complaints, except as documented, Denies dizziness, Reports headache(s), Denies nasal congestion, Denies nasal discharge and Denies neck pain Cardiovascular: Cardiovascular: Reports no additional cardiovascular complaints, Denies chest pain, Denies leg edema and Denies dyspnea Respiratory: Respiratory: Reports no additional respiratory complaints, Denies cough and Denies dyspnea Gastrointestinal: Gastrointestinal: Reports no additional gastrointestinal complaints, Denies abdominal pain, Denies diarrhea, Denies nausea and Denies vomiting Genitourinary: Genitourinary: Denies urinary incontinence Musculoskeletal: Musculoskeletal: Reports no additional musculoskeletal complaints, Denies back pain, Denies arthralgias, Denies joint swelling, Denies neck pain, Denies numbness and Denies tingling Integumentary/Breasts: Skin/Breast: Reports system reviewed and no additional complaints, except as docu and Denies rash Neurologic: Reports system reviewed and no additional complaints, except as documented, Denies Abnormal speech present, Denies dizziness, Reports headache(s), Denies numbness, Denies tingling and Reports weakness PMFSH Past Medical History Attestation statement: The following information was validated with the patient. Source: old records reviewed and nursing notes reviewed Medical History Hyperlipidemia Hypertension Surgical History H/O hemorrhoidectomy Hx of colonoscopy Hx of esophagogastroduodenoscopy Social History Social History Household Members: Spouse Are you a primary day care worker to a significant other at home: No Do you presently have visiting nurse or other home services: No Alcohol intake: never Patient Tobacco Use Status: Never used Tobacco Use of substances other than those prescribed or required for medical reasons: No Advance Directives: No Advance Directives Information Provided: No Current occupational status: employed 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 Physical Exam Vital Signs: Vital Signs: Last Vital Signs Temp 99 F 02/23/21 15:25 Pulse 74 02/23/21 16:24 Resp 17 02/23/21 16:24 BP 151/99 H 02/23/21 16:45 Pulse Ox 96 02/23/21 16:24 Body Mass Index 28.5 Const: General: cooperative, healthy appearing, comfortable and no acute distress Orientation/consciousness: patient oriented x3 Limitations: no limitations HENMT: Head: Yes normal to inspection Ears: hearing grossly normal bilaterally General nose exam: Normal external nose present Face and sinus: Yes normal facial exam Mouth: Normal oral and palatal mucosa present Throat: Yes posterior oropharynx normal Eyes: General: appearance normal, both eyes and all related structures Pupils: Equal, round and reactive pupils present Neck: Neck: Yes normal visual inspection Chest: Chest palpation & inspection: normal inspection of the chest Resp: Effort & Inspection: normal respiratory effort Auscultation: clear to auscultation bilaterally Cardio: Rate: regular rate Rhythm: regular rhythm Peripheral pulses: Peripheral pulses 2+ throughout GI: Inspection: Yes normal to inspection Palpation (GI): Soft to palpation and nontender Auscultation: normal bowel sounds Back/Spine/Pelvis: Thoracic/Lumbar Spine: thoracic and lumbar spine normal to inspection Skin: General skin exam: no rashes or lesions noted Neuro: General: patient oriented x3, no focal motor deficits and normal sensation to monofilament Cranial nerves: Yes CN's II-XII intact bilaterally, Yes Equal, round and reactive pupils present, Yes Bilaterally intact EOM present, Yes Nystagmus not present, Yes Normal facial strength present and Yes Midline tongue present Cognition (Neuro): normal cognition Speech: No Abnormal speech present Gait exam (Neuro): Normal gait present Motor exam (neuro): 5/5 motor strength present throughout Sensory Exam: Normal double simultaneous stimulation for sensation Coordination: [id number] test normal and [id number] test normal Extrem: General: Yes normal to inspection NIH Stroke Scale Internal: Initial- Upon Arrival Level of Consciousness: Alert Level of Consciousness Questions: Answers both questions correctly Level of Consciousness Commands: Performs both tasks correctly Best Gaze: Normal Visual: No visual loss Facial Palsy: Normal Motor Arm (Right): No drift Motor Arm (Left): No drift Motor Leg (Right): No drift Motor Leg (Left): No drift Limb Ataxia: Absent Sensory: Normal Best Language: No aphasia Dysarthia: Normal Extinction and Inattention: No abnormality Score: 0 Course Course Course Narrative: This patient was seen in conjunction with Tara Valencia PA-C (who is observing and training). Reevaluation(s) Reevaluation #1: Spoke to Dr. Bourne who reported critical results to Tara Valencia PA-C and myself who both heard her report, she reports right sided subdural bleed with shift to the left 1cm called [facility], however they are not accepting this patient at this time, since there is no evident trauma. They are closed to all transfers with the exception of trauma. Re-evaluated patient who states the headache is still present at this time. Patient continues to deny trauma. No focal neuro deficits. 5/5 strength upper and lower extremities. Normal hand tipple engineer. Normal [id number]-cv-ajbo, dnfl-oa-vdbi. Pupils equal round reactive to light bilaterally. Time: 15:59 Reevaluation #2: Called transfer line who accepted patient to [facility] as direct transfer under Trent Rick MD. They will call back with goal blood pressure recommendations. Current blood pressure 172/82. Cardene at bedside if needed. Nursing to alert ems for transfer. Neuro status unchanged at this time. Time: 16:30 Reevaluation #3: Current blood pressure 164/84 w/o intervention. No call from . Will initiate cardene gtt 5mg/hr for goal bp <160 systolic but greater then 140. Time: 16:45 Additional Reevaluation(s): Blood pressure on EMS leaving was 151/90. Medical Decision Making MDM Narrative Medical decision making narrative: [id number] 75-year-old male past medical history significant for hypertension, hyperlipidemia presents to the emergency department with a frontal constant bilateral headache, described as tightness, as well as generalized weakness. Patient states he was discharged here from the hospital early this morning, he was seen here for chest pain, had a thorough workup with no significant findings, he was discharge home. He states his head started hurting a few hours after he got home from the hospital, and he also reports generalized weakness. He denies CP,SOB, fevers, chills, vision changes, nausea, vomiting, dizziness. He is not on blood thinners. Upon physical examination lungs are clear to auscultation bilaterally. Pupils equal round, reactive bilateral. No pain with extraocular movements, no nystagmus noted, visual jimenez by confrontation normal. No focal neuro deficits, malamm-ds-vzpt normal, tfih-dx-cryx normal, unlikely that this is a cerebellar infarct. 5/5 strength upper and lower extremities, patient alert and oriented x3 and able to follow commands. No slurred speech. Vital signs are stable, he is 90% on room air, he is not tachycardia, unlikely that this is a pulmonary embolism, patient history, and physical exam were not consistent with this diagnosis. Upon his arrival an EKG was obtained which showed T-wave inversions in lead aVL, and 1, a also showed left ventricular hypertrophy, however when comparing this EKG to the EKG done earlier this morning, there is no changes. Upon reviewing labs, patient had high sensitivity troponin x2 both of which were negative. At this time there is no need to repeat another troponin. Low probability for ACS, patient denies chest pain, shortness of breath. Plan- obtain basic labs, EKG, CK, Mag, SARS/Flu/RSV, PTT. PT INR and a CT non contrast of the head due to patients persistent headache, and patients age will rule out ICH/stroke. Medical Records Medical records reviewed: Yes I reviewed the patient's medical records. Lab Data Lab results reviewed: Yes I reviewed the patient's lab results. Result diagrams: 02/23/21 15:13 02/23/21 15:13 Labs: Lab Results 02/23/21 02/23/21 02/23/21 Range/Units 15:13 15:13 15:13 WBC 8.0 (4.8-10.8) X10*3/uL RBC 3.95 L (4.60-5.80) X10*6/uL Hgb 11.8 L (14.0-18.0) g/dl Hct 35.2 L (42.0-52.0) % MCV 89.1 (80.0-98.0) fL MCH 29.9 (27.0-33.0) pg MCHC 33.5 (31.0-36.0) g/dl RDW 12.6 (11.0-16.0) % Plt Count 194 (160-400) X10*3/uL MPV 11.0 (9.4-12.4) fL Immature Gran % (Auto) 0.2 (0.0-0.4) % Neut % (Auto) 74.0 H (45-73) % Lymph % (Auto) 17.7 L (20-40) % [place] % (Auto) 6.6 (2-11) % Eos % (Auto) 0.9 (0-4) % Baso % (Auto) 0.6 (0-2) % Lymph # (Auto) 1.4 (1.2-4.9) X10*3/uL [place] # (Auto) 0.5 (0.1-1.2) X10*3/uL Eos # (Auto) 0.1 (0.0-0.4) X10*3/uL Baso # (Auto) 0.1 (0.0-0.2) X10*3/uL Abs Immat Gran (auto) 0.02 (0.00-0.03) X10*3/uL Absolute Neuts (auto) 5.93 (2.0-8.3) x10*3/uL Absolute Nucleated RBC 0.000 (0.0-0.012) X10*3/uL Nucleated RBC % (auto) 0.0 (0.0-0.2) /100WBC PT (9.9-13.0) SEC INR (0.9-1.1) APTT (24.1-38.0) SEC Sodium 138 (135-145) mmol/L Potassium 4.2 (3.3-5.1) mmol/L Chloride 105 (96-108) mmol/L Carbon Dioxide 25 (22-29) mmol/L Anion Gap 12 (12-20) BUN 17 H (9-16) mg/dL Creatinine 1.11 (0.5-1.4) mg/dL Estim Creat Clear Calc 63.9 Estimated GFR > 60 Random Glucose 126 H (60-115) mg/dL Calcium 8.9 (8.4-10.2) mg/dL Magnesium 2.1 (1.6-2.6) mg/dL Total Creatine Kinase 80 (38-174) U/L Urine Color Urine Appearance Urine pH (5.0-8.0) Ur Specific [place] (1.005-1.025) Urine Protein (NEG-TRACE) MG/DL Urine Glucose (UA) (NEG) MG/DL Urine Ketones (NEG) MG/DL Urine Blood (NEG) Urine Nitrite (NEG) Ur Leukocyte Esterase (NEG) Influenza Type A (PCR) NEGATIVE (Negative) Influenza Type B (PCR) NEGATIVE (Negative) RSV RNA Qual (PCR) NEGATIVE (Negative) SARS-CoV-2 RNA (RT-PCR) NEGATIVE (Negative) 02/23/21 02/23/21 Range/Units 15:33 16:02 WBC (4.8-10.8) X10*3/uL RBC (4.60-5.80) X10*6/uL Hgb (14.0-18.0) g/dl Hct (42.0-52.0) % MCV (80.0-98.0) fL MCH (27.0-33.0) pg MCHC (31.0-36.0) g/dl RDW (11.0-16.0) % Plt Count (160-400) X10*3/uL MPV (9.4-12.4) fL Immature Gran % (Auto) (0.0-0.4) % Neut % (Auto) (45-73) % Lymph % (Auto) (20-40) % [place] % (Auto) (2-11) % Eos % (Auto) (0-4) % Baso % (Auto) (0-2) % Lymph # (Auto) (1.2-4.9) X10*3/uL [place] # (Auto) (0.1-1.2) X10*3/uL Eos # (Auto) (0.0-0.4) X10*3/uL Baso # (Auto) (0.0-0.2) X10*3/uL Abs Immat Gran (auto) (0.00-0.03) X10*3/uL Absolute Neuts (auto) (2.0-8.3) x10*3/uL Absolute Nucleated RBC (0.0-0.012) X10*3/uL Nucleated RBC % (auto) (0.0-0.2) /100WBC PT 11.9 (9.9-13.0) SEC INR 1.0 (0.9-1.1) APTT 33.3 (24.1-38.0) SEC Sodium (135-145) mmol/L Potassium (3.3-5.1) mmol/L Chloride (96-108) mmol/L Carbon Dioxide (22-29) mmol/L Anion Gap (12-20) BUN (9-16) mg/dL Creatinine (0.5-1.4) mg/dL Estim Creat Clear Calc Estimated GFR Random Glucose (60-115) mg/dL Calcium (8.4-10.2) mg/dL Magnesium (1.6-2.6) mg/dL Total Creatine Kinase (38-174) U/L Urine Color YELLOW Urine Appearance CLEAR Urine pH 6.5 (5.0-8.0) Ur Specific [place] 1.010 (1.005-1.025) Urine Protein NEG (NEG-TRACE) MG/DL Urine Glucose (UA) NEG (NEG) MG/DL Urine Ketones NEG (NEG) MG/DL Urine Blood NEG (NEG) Urine Nitrite NEG (NEG) Ur Leukocyte Esterase NEG (NEG) Influenza Type A (PCR) (Negative) Influenza Type B (PCR) (Negative) RSV RNA Qual (PCR) (Negative) SARS-CoV-2 RNA (RT-PCR) (Negative) Imaging Data CT scan - head: Attestation: I personally reviewed and interpreted this imaging study as follows: Radiologist's impression: FINDINGS: Subdural hematoma layers along the right hemisphere predominantly involving the right frontal and parietal lobes. At the right high frontal convexity this measures approximately 1.2 cm as seen on the coronal view. There is 1 cm of leftward midline shift. The basal cisterns maintain patency. No acute territorial infarction. Calvarium is intact. Limited views of the paranasal sinuses are unremarkable. Mastoid air cells are well aerated and middle ear cavities are clear. Limited views of the orbits are unremarkable. ? CT/CT head/brain wo con IMPRESSION: There is a heterogeneous collection of fluid along the right frontoparietal convexity consistent with either subacute or acute on chronic subdural hematoma. This results in 1 cm leftward midline shift and compression of the right lateral ventricle. ? This critical result was discussed with Sandi BAH at 1545 hours on 02/23/2021 and it was ascertained that the content and urgency of the report was understood at the time of direct communication. ? ECG Data Attestation: I personally reviewed and interpreted this ECG as follows: Prior ECG tracings: available for review Interpretation: Ventricular rate of seventy-five, CO prolonged, QRS normal QT/QTC normal, EKG shows sinus rhythm with first-degree AV block. There is T-wave inversions noted in aVL, and lead 1. No ST elevations, or depressions. No acute ischemia. No acute changes when compared to EKG from 02/23/2021, earlier this morning. Critical Care Time Critical Care Time Critical Care Time: Yes Total Critical Care Time: 60 Attestation: Multiple re-evaluations for neurological status and blood pressure control.. Discussion with two tertiary care centers with transfer to [facility]. Discharge Plan Discharge Clinical Impression: Acute subdural hematoma [facility]position[facility] Transfer Details: [facility] ED Prescriptions: No Action (DME) walker with wheels and seat See Rx Instructions .Route .MEDSUPPLY Qty: 1 RF: 0 atenolol 50 mg tablet 50 mg PO BID 90 Days Qty: 180 RF: 0 atorvastatin 40 mg tablet 40 mg PO DAILY 90 Days Qty: 90 RF: 0 indomethacin 50 mg capsule 50 mg PO BID Qty: 14 RF: 0 prednisone 20 mg tablet 40 mg PO DAILY Qty: 10 RF: 0 amoxicillin-pot clavulanate [Augmentin] 875-125 mg tablet 1 tab PO Q12H Qty: 20 RF: 0
[2021-02-23 15:20] LABS: MANUAL DIFF FLAG NO
[2021-02-23 15:22] LABS: Basophils Absolute Auto 0.1 X10*3/uL (0.0-0.2); Basophils Percent Auto 0.6 % (0-2); Eosinophils Absolute Auto 0.1 X10*3/uL (0.0-0.4); Eosinophils Percent Auto 0.9 % (0-4); Hematocrit 35.2 % (42.0-52.0); Hemoglobin 11.8 g/dl (14.0-18.0); Imm Gran Abs Auto 0.02 X10*3/uL (0.00-0.03); Imm Gran Pct Auto 0.2 % (0.0-0.4); Lymphocytes Absolute Auto 1.4 X10*3/uL (1.2-4.9); Lymphocytes Percent Auto 17.7 % (20-40); Mean Corpuscular HGB Conc 33.5 g/dl (31.0-36.0); Mean Corpuscular Hemoglobin 29.9 pg (27.0-33.0); Mean Corpuscular Volume 89.1 fL (80.0-98.0); Monocytes Absolute Auto 0.5 X10*3/uL (0.1-1.2); Monocytes Percent Auto 6.6 % (2-11); Neutrophils Absolute Auto 5.93 x10*3/uL (2.0-8.3); Platelet Count 194 X10*3/uL (160-400); Red Blood Count 3.95 X10*6/uL (4.60-5.80); Red Cell Distribution Width 12.6 % (11.0-16.0)
[2021-02-23 15:25] VITALS: BP 173/82; PULSE 74; RESP 14; TEMP 37.2; O2SAT 98
[2021-02-23 15:42] LABS: Anion Gap 12 (12-20); Blood Urea Nitrogen 17 mg/dL (9-16); Calcium 8.9 mg/dL (8.4-10.2); Carbon Dioxide 25 mmol/L (22-29); Chloride 105 mmol/L (96-108); Creatinine Clr Calc Pharmacy 63.9; Estimated Glomerular Filt Rate > 60; Glucose Random 126 mg/dL (60-115); Magnesium 2.1 mg/dL (1.6-2.6); Potassium 4.2 mmol/L (3.3-5.1); Sodium 138 mmol/L (135-145)
[2021-02-23 15:45] LABS: Appearance Urine CLEAR; Color Urine YELLOW; Glucose Urine UA NEG (NEG); Leukocyte Esterase Urine NEG (NEG); Nitrite Urine NEG (NEG); PH 6.5 (5.0-8.0); Urine Blood NEG (NEG); Urine Ketones NEG (NEG); Urine Protein NEG (NEG-TRACE)
[2021-02-23 16:01] LABS: Influenza A PCR NEGATIVE (Negative); Influenza B PCR NEGATIVE (Negative); Resp Syncy Virus RNA Qual PCR NEGATIVE (Negative); SARS COV2 PCR INHOUSE NEGATIVE (Negative)
[2021-02-23 16:19] LABS: Prothrombin Time 11.9 SEC (9.9-13.0)
[2021-02-23 16:21] LABS: Partial Thromboplastin Time 33.3 SEC (24.1-38.0)
[2021-02-23 16:24] VITALS: BP 166/84; PULSE 74; RESP 17; O2SAT 96
[2021-02-23] MEDS: niCARdipine HCL 25 MG in 0.9 % Sodium Chloride 250 ML 52 MG IVCONT (16:37)
[2021-02-23 16:40] VITALS: BP 175/98
--- NOTE | 2021-02-23 16:41 | PC.NURSE ---
EMS at bedside for transfer going to [facility]
[2021-02-23 16:45] VITALS: BP 151/99
== END 2021-02-23 16:54 | disposition short-term general hospital (02) ==
PROVIDERS: Nurse Practitioner Family; Emergency Provider Emergency Medicine; PCP Internal Medicine
DX: I62.01 Nontraumatic acute subdural hemorrhage (principal); R29.700 NIHSS score 0; R53.1 Weakness; R51.9 Headache, unspecified; I10 Essential (primary) hypertension; Z20.822 Contact with and (suspected) exposure to COVID-19; Z79.899 Other long term (current) drug therapy
CPT/HCPCS: 0241U; 36415; 70450; 80048; 81003; 82550; 83735; 85025; 85610; 85730; 93005; 96365; 99285; 99291

== ENCOUNTER 2021-06-06 09:33 | Outpatient (REF) | payer MEDICAID, SELFPAY ==
--- NOTE | 2021-06-06 09:37 | EMG_ITS ---
This is a 76-year-old man who had drainage of a right subdural hematoma in December 2018, and thereafter has noticed numbness in his toes in the bottom of his feet without any pain or tingling. No history of diabetes. PHYSICAL EXAMINATION: He is alert, oriented with normal intellectual functions. Cranial nerves II through XII are normal. Muscle tone and strength are normal in all 4 extremities. He has absent reflex in the lower extremities. IMPRESSION: Peripheral neuropathy. 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 EMG of the left L4-S1 innervated muscles consistent with chronic mild distal neuropathic changes. MD EWA Benoit/ITALO / [id number]
== END 2021-06-06 09:34 | disposition home or self-care (01) ==
LOC: HO.NEURO 09:33
PROVIDERS: PCP Internal Medicine; Visit Provider Psychiatry & Neurology Neurology
DX: R20.2 Paresthesia of skin (principal)
CPT/HCPCS: 95885; 95911

== ENCOUNTER 2021-06-11 08:24 | Outpatient (REF) | payer MEDICAID, SELFPAY ==
--- NOTE | ~2021-06-11 | CT_ITS ---
EXAMINATION: CT HEAD WITHOUT CONTRAST CLINICAL INFORMATION: Status post drainage subdural hematoma. COMPARISON: CT brain 02/23/2021. TECHNIQUE: Contiguous axial imaging was performed from the skull base to vertex without intravenous administration of contrast. This CT examination was performed using dose optimization techniques as appropriate, variously including the following: *Automated exposure control *Adjustment of mA and/or kV according to patient size (this includes techniques or standardized protocols for targeted exams where dose is matched to indication/reason for exam; i.e. extremities or head) *Use of iterative reconstruction technique DLP: 828 mGy-cm FINDINGS: There is no evidence of acute intracranial hemorrhage or territorial infarction. There is no residual subdural hemorrhage seen. No abnormal mass effect or midline shift is seen. Sarmiento to white matter differentiation is well preserved. No extra-axial fluid collections are identified. The ventricles are normal in size. There is no abnormal attenuation within the brain parenchyma. There is a right frontal and right parietal ladonna hole from previous intervention for subdural evacuation. Otherwise visualized calvarium and the scalp soft tissues are unremarkable. The mastoid air cells and visualized portions of the paranasal sinuses are well aerated. CT/CT head/brain wo con IMPRESSION: No acute intracranial process seen. Previously seen right frontoparietal subdural hematoma has been evacuated with 2 ladonna holes in the right frontal and parietal bone. No residual subdural hematoma seen.
== END 2021-06-11 08:25 | disposition home or self-care (01) ==
LOC: HO.CT 08:24
PROVIDERS: PCP Internal Medicine; Visit Provider Surgery
DX: Z98.890 Other specified postprocedural states (principal)
CPT/HCPCS: 70450

== ENCOUNTER 2021-09-10 10:02 | Outpatient (REF) | payer MEDICARE, MEDICAID, SELFPAY ==
[2021-09-10 11:28] LABS: MANUAL DIFF FLAG NO
[2021-09-10 11:36] LABS: Basophils Absolute Auto 0.1 X10*3/uL (0.0-0.2); Eosinophils Percent Auto 0.6 % (0-4); Hematocrit 37.8 % (42.0-52.0); Hemoglobin 12.6 g/dl (14.0-18.0); Imm Gran Abs Auto 0.02 X10*3/uL (0.00-0.03); Imm Gran Pct Auto 0.4 % (0.0-0.4); Lymphocytes Absolute Auto 1.8 X10*3/uL (1.2-4.9); Lymphocytes Percent Auto 35.7 % (20-40); Mean Corpuscular HGB Conc 33.3 g/dl (31.0-36.0); Mean Corpuscular Hemoglobin 29.7 pg (27.0-33.0); Mean Corpuscular Volume 89.2 fL (80.0-98.0); Mean Platelet Volume 11.6 fL (9.4-12.4); Monocytes Absolute Auto 0.5 X10*3/uL (0.1-1.2); Monocytes Percent Auto 9.2 % (2-11); Neutrophils Absolute Auto 2.7 x10*3/uL (2.0-8.3); Neutrophils Percent Auto 53.1 % (45-73); Platelet Count 196 X10*3/uL (160-400); Red Blood Count 4.24 X10*6/uL (4.60-5.80); Red Cell Distribution Width 12.5 % (11.0-16.0)
[2021-09-10 11:43] LABS: Alanine Aminotransferase 24 U/L (0-40); Alkaline Phosphatase 98 U/L (39-117); Anion Gap 9 (12-20); Aspartate Amino Transferase 16 U/L (5-37); Bilirubin Total 0.6 mg/dL (0.0-1.0); Blood Urea Nitrogen 17 mg/dL (9-16); Calcium 9.2 mg/dL (8.4-10.2); Carbon Dioxide 29 mmol/L (22-29); Chloride 108 mmol/L (96-108); Estimated Glomerular Filt Rate > 60; Glucose Random 120 mg/dL (60-115); Potassium 4.3 mmol/L (3.3-5.1); Sodium 142 mmol/L (135-145); Total Protein 6.7 g/dL (6.5-8.0)
[2021-09-12 00:52] LABS: LDL Cholesterol Direct 79 mg/dL (<100)
== END 2021-09-10 10:03 | disposition home or self-care (01) ==
LOC: HO.HMGCLDS 10:02
PROVIDERS: Visit Provider Internal Medicine
DX: E78.9 Disorder of lipoprotein metabolism, unspecified (principal); I10 Essential (primary) hypertension; M10.9 Gout, unspecified; D64.9 Anemia, unspecified; R20.2 Paresthesia of skin
CPT/HCPCS: 36415; 80053; 83721; 85025

== ENCOUNTER 2021-09-11 09:30 | Outpatient (REF) | payer MEDICARE, MEDICAID, SELFPAY | END 2021-09-11 09:31 | disposition home or self-care (01) | LOC: HO.HMGCLNP 09:30 | PROVIDERS: PCP Internal Medicine; Visit Provider Internal Medicine Gastroenterology | DX: K29.70 Gastritis, unspecified, without bleeding (principal); B96.81 Helicobacter pylori [H. pylori] as the cause of diseases classified elsewhere | CPT/HCPCS: 87338 ==

== ENCOUNTER 2021-10-17 11:54 | Outpatient (REF) | payer MEDICARE, MEDICAID, SELFPAY ==
[2021-10-17 13:41] LABS: Iron 81 mcg/dL (45-160); Percent Iron Saturation 26 % (15-50); Total Iron Binding Capacity 307 mcg/dL (228-428); Unsaturated Iron Binding 226 ug/dL
[2021-10-17 14:04] LABS: Ferritin 75 ng/mL (20-250)
[2021-10-17 14:17] LABS: Folate > 20.0 ng/mL (> or = 4.0); Vitamin B12 336 pg/mL (200-900)
[2021-10-22 06:28] LABS: Zinc 63 mcg/dL (60-130)
== END 2021-10-17 11:55 | disposition home or self-care (01) ==
LOC: HO.LAB 11:54
PROVIDERS: PCP Internal Medicine; Visit Provider Internal Medicine Gastroenterology
DX: K29.70 Gastritis, unspecified, without bleeding (principal); B96.81 Helicobacter pylori [H. pylori] as the cause of diseases classified elsewhere; D64.9 Anemia, unspecified; Z86.010 Personal history of colon polyps
CPT/HCPCS: 36415; 82607; 82728; 82746; 83540; 84630; 99212

== ENCOUNTER 2021-11-18 13:48 | Outpatient (REF) | payer MEDICAID, SELFPAY ==
--- NOTE | ~2021-11-18 | XR_ITS ---
EXAMINATION: XR HAND/WRIST, RIGHT CLINICAL INFORMATION: Right hand/wrist pain COMPARISON: 07/09/2020 TECHNIQUE: 3 views of the right hand/wrist FINDINGS: No acute fracture or dislocation. [id number] degenerative changes of the interphalangeal joints which has progressed at the 1st interphalangeal joint. No periarticular osteopenia, erosions, or suspicious soft tissue calcifications. 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 XR/XR hand wrist RT IMPRESSION: No acute osseous abnormality. Degenerative findings as described, similar to the previous study, perhaps slightly progressed at the 1st interphalangeal joint.
[2021-11-18 16:29] LABS: MANUAL DIFF FLAG NO
[2021-11-18 16:46] LABS: Basophils Absolute Auto 0.1 X10*3/uL (0.0-0.2); Basophils Percent Auto 0.8 % (0-2); Eosinophils Percent Auto 0.5 % (0-4); Hematocrit 35.9 % (42.0-52.0); Hemoglobin 11.8 g/dl (14.0-18.0); Imm Gran Abs Auto 0.04 X10*3/uL (0.00-0.03); Imm Gran Pct Auto 0.5 % (0.0-0.4); Lymphocytes Absolute Auto 2.1 X10*3/uL (1.2-4.9); Lymphocytes Percent Auto 27.1 % (20-40); Mean Corpuscular HGB Conc 32.9 g/dl (31.0-36.0); Mean Corpuscular Hemoglobin 29.2 pg (27.0-33.0); Mean Corpuscular Volume 88.9 fL (80.0-98.0); Mean Platelet Volume 11.1 fL (9.4-12.4); Monocytes Absolute Auto 0.8 X10*3/uL (0.1-1.2); Monocytes Percent Auto 9.8 % (2-11); Neutrophils Absolute Auto 4.7 x10*3/uL (2.0-8.3); Neutrophils Percent Auto 61.3 % (45-73); Platelet Count 215 X10*3/uL (160-400); Red Blood Count 4.04 X10*6/uL (4.60-5.80); Red Cell Distribution Width 12.3 % (11.0-16.0); White Blood Count 7.7 X10*3/uL (4.8-10.8)
[2021-11-18 16:57] LABS: Alanine Aminotransferase 28 U/L (0-40); Alkaline Phosphatase 107 U/L (39-117); Anion Gap 10 (12-20); Aspartate Amino Transferase 18 U/L (5-37); Bilirubin Total 0.4 mg/dL (0.0-1.0); Blood Urea Nitrogen 20 mg/dL (9-16); Calcium 8.6 mg/dL (8.4-10.2); Carbon Dioxide 24 mmol/L (22-29); Chloride 109 mmol/L (96-108); Estimated Glomerular Filt Rate > 60; Glucose Random 155 mg/dL (60-115); Potassium 3.7 mmol/L (3.3-5.1); Sodium 139 mmol/L (135-145); Total Protein 6.7 g/dL (6.5-8.0)
[2021-11-18 17:33] LABS: Erythrocyte Sedimentation Rate 27 MM/HR (0-15)
[2021-11-19 11:47] LABS: CRP High Sensitivity >10.0 mg/L
== END 2021-11-18 13:49 | disposition home or self-care (01) ==
LOC: HO.HMGCX 13:48
PROVIDERS: PCP Internal Medicine; Visit Provider Physician Assistant
DX: L03.119 Cellulitis of unspecified part of limb (principal); M25.531 Pain in right wrist; M25.431 Effusion, right wrist
CPT/HCPCS: 36415; 73110; 73130; 80053; 85025; 85652; 86141

== ENCOUNTER 2021-11-26 00:26 | Emergency (ER) | payer MEDICARE, MEDICAID, SELFPAY ==
[2021-11-26 00:31] VITALS: BP 144/84; PULSE 86; O2SAT 100
[2021-11-26 00:45] VITALS: BP 155/82; PULSE 67; RESP 22; TEMP 37.2; O2SAT 96; BMI 28.0
--- NOTE | 2021-11-26 00:59 | PC.NURSE ---
refused labs and EKg.
--- NOTE | 2021-11-26 04:53 | ED.GENADULT ---
HPI - General Adult General Chief complaint: General Medical Stated complaint: wrist and forearm pain Time Seen by Provider: 11/26/21 04:53 Source: patient Mode of arrival: ambulatory Limitations: no limitations History of Present Illness HPI narrative: 76-year-old male came in for evaluation of right hand/ wrist / forearm pain. Symptoms started about 2 weeks ago patient was seen and evaluated at a walk-in clinic was diagnosed with gout patient claimed that the medicine was prescribed is not working. And still have pain in the right hand and wrist patient declined any recent trauma or fall, patient is retired with no possible predisposing factor then concluded the patient's pain, patient had no history of similar pain in the past. Related Data Previous Rx's Medication Instructions Recorded walker with wheels and seat #1 ea 12/25/20 atenolol 50 mg tablet 50 mg PO BID 90 days #180 tabs 09/10/21 atorvastatin 40 mg tablet 40 mg PO DAILY 90 days #90 tabs 09/10/21 losartan 25 mg tablet 25 mg PO DAILY 90 days #90 tabs 09/10/21 multivitamin 1 tab PO QAM 90 days #90 tabs 10/17/21 indomethacin 50 mg capsule 50 mg PO BID 5 days #10 caps 11/08/21 cephalexin 500 mg capsule 500 mg PO QID 7 days #28 caps 11/18/21 doxycycline hyclate 100 mg capsule 100 mg PO BID 7 days #14 caps 11/18/21 indomethacin 25 mg capsule 25 mg PO BID 5 days #10 caps 11/18/21 prednisone 20 mg tablet 20 mg PO DAILY 5 days #5 tabs 11/18/21 acetaminophen 325 mg capsule 325 mg PO ONCE PRN pain 30 days 11/19/21 (Tylenol) #30 caps oxycodone 5 mg tablet 5 mg PO BID PRN pain #10 tabs 11/26/21 prednisone 10 mg tablet 10 mg PO BID #10 tabs 11/26/21 Allergies Allergy/AdvReac Type Severity Reaction Status Date / Time Sulfa (Sulfonamide Allergy Severe ANAPHYLAXIS Verified 11/22/21 11:19 Antibiotics) [SULFA (SULFONAMIDE ANTIBIOTICS)] Review of Systems Review of Systems: All other systems are reviewed and are negative Constitutional: Reports as per HPI and Reports no additional constitutional complaints Eyes: Reports as per HPI and Reports no additional eye complaints Reports system reviewed and no additional complaints, except as documented Cardiovascular: Reports as per HPI and Reports no additional cardiovascular complaints Respiratory: Reports as per HPI and Reports no additional respiratory complaints Gastrointestinal: Reports as per HPI and Reports no additional gastrointestinal complaints Genitourinary: Reports no additional female genitourinary complaints Musculoskeletal: Reports no additional musculoskeletal complaints Skin/Breast: Reports system reviewed and no additional complaints, except as docu Psychiatric: Reports no additional psychiatric complaints Endocrine: Reports no additional endocrine complaints Hematologic/Lymphatic: Reports no additional hematologic/lymphatic complaints Allergic/Immunologic: Reports no additional allergic/immunologic complaints Reports system reviewed and no additional complaints, except as documented and Reports Abnormal speech present [facility] Past Medical History Medical History Hyperlipidemia Hypertension Surgical History H/O hemorrhoidectomy Hx of colonoscopy Hx of esophagogastroduodenoscopy Social History Social History Household Members: Spouse Housing: Apartment Are you a primary inpatient care manager rn to a significant other at home: No Do you presently have visiting nurse or other home services: No Alcohol intake: never Patient Tobacco Use Status: Never used Tobacco e-Cigarette/Vaping Use: Never Used Advance Directives: No service: No Current occupational status: unemployed Cognitive needs: No Hearing needs: No Vision needs: No Physical Exam ED Vital Signs: Vital Signs - 24 hr 11/26/21 00:45 Temperature 99.0 F Pulse Rate 67 Respiratory Rate 22 H Blood Pressure 155/82 H Pulse Oximetry 96 Oxygen Delivery Method Room Air BMI result Body Mass Index 28.0 vital signs have been reviewed as appeared to be correct. Blood pressure normal. Heart rate normal. Respiration rate normal. Temperature normal. Oxygen saturation normal. Appearance: Alert. Oriented X3. No acute distress. Head: Normal external exam. Normocephalic. Atraumatic. No Aggarwal signs noted. No raccoon eyes noted Eyes: PERRLA. EOMI. Conjunctiva and sclera normal. Eyelids normal. ENT: TM's Normal. Pharynx normal. Uvula midline. Moist mucous membranes. No trismus noted. No drooling noted. No muffled voice noted. Neck: Normal inspection. Neck supple. FROM. No adenopathy. Thyroid Normal. No meningeal signs. No neck mass noted. CVS: Normal heart rate and rhythm. Heart sound normal. No murmurs noted. Pulses normal throughout. Respiratory: No respiratory distress. Painless inspiration. Breath sounds normal. No wheezes/rales/rhonchi noted. Chest nontender. No accessory muscle usage noted or decreased air movement noted. Abdomen: Soft and nontender. Bowel sounds normal in all 4 quadrants. No distention noted. No organomegaly noted. No visible injury noted. Back: No CVA tenderness. Full range of motion noted. Skin: Skin warm and dry. Normal skin color. Normal skin turgor. No rashes/lesions/lacerations noted. Extremities: right upper extremities exam: Tenderness over right hand/ right wrist and forearm, no deformity, no step-off, intact radial pulsation, intact light touch sensation. Neuro: Oriented X 3. Cranial nerve exam: II-XII are grossly intact No motor deficit. No sensory deficit. Reflexes normal. Course Course Course Narrative: Nonspecific arthritis in the right wrist area, patient currently under treatment of gout, will start the patient on short course of prednisone and oxycodone. Discharge Plan Discharge Clinical Impression: Gouty arthritis Patient Disposition: Home, Self-Care Prescriptions: New prednisone 10 mg tablet 10 mg PO BID Qty: 10 0RF oxycodone 5 mg tablet 5 mg PO BID PRN (Reason: pain) Qty: 10 0RF Rx Instructions: Partial Fill upon patient request. No Action (DME) walker with wheels and seat See Rx Instructions .Route .MEDSUPPLY Qty: 1 0RF Rx Instructions: As directed acetaminophen [Tylenol] 325 mg capsule 325 mg PO ONCE PRN (Reason: pain) 30 Days Qty: 30 11RF atenolol 50 mg tablet 50 mg PO BID 90 Days Qty: 180 0RF atorvastatin 40 mg tablet 40 mg PO DAILY 90 Days Qty: 90 0RF losartan 25 mg tablet 25 mg PO DAILY 90 Days Qty: 90 0RF prednisone 20 mg tablet 20 mg PO DAILY 5 Days Qty: 5 0RF indomethacin 25 mg capsule 25 mg PO BID 5 Days Qty: 10 0RF Rx Instructions: administer with food or milk doxycycline hyclate 100 mg capsule 100 mg PO BID 7 Days Qty: 14 0RF cephalexin 500 mg capsule 500 mg PO QID 7 Days Qty: 28 0RF indomethacin 50 mg capsule 50 mg PO BID 5 Days Qty: 10 0RF Rx Instructions: administer with food or milk multivitamin Tablet 1 tab PO QAM 90 Days Qty: 90 2RF Referrals: Kaitlyn Bowman MD [Primary Care Provider] -
[2021-11-26] MEDS: oxyCODONE HCl Immed Release 5 MG TABLET PO (05:55)
[2021-11-26] MEDS: predniSONE 20 MG TABLET 60 MG PO (05:55)
== END 2021-11-26 06:32 | disposition home or self-care (01) ==
PROVIDERS: Emergency Provider Emergency Medicine; PCP Internal Medicine
DX: M10.9 Gout, unspecified (principal); M25.531 Pain in right wrist; M79.641 Pain in right hand; I10 Essential (primary) hypertension; E78.5 Hyperlipidemia, unspecified
CPT/HCPCS: 99283; 99284

== ENCOUNTER 2021-12-30 16:28 | Emergency (ER) | payer OTHER, SELFPAY ==
--- NOTE | ~2021-12-30 | XR_ITS ---
EXAMINATION: XR CHEST CLINICAL INFORMATION: Dyspnea COMPARISON: Chest x-ray 07/14/2020 TECHNIQUE: Frontal view of the chest was obtained. FINDINGS: Lungs are mildly hypoinflated. Minimal left basilar atelectasis/pulmonary vascular crowding. No airspace consolidation, pleural effusion, or pneumothorax. Normal cardiomediastinal silhouette and pulmonary vascularity. No evidence of pulmonary edema. No acute osseous injury. XR/XR chest 1V IMPRESSION: 1. Hypoinflated lungs with minimal left basilar atelectasis. No acute pulmonary process.
[2021-12-30 16:33] VITALS: BP 127/70; BP 130/70; PULSE 100; PULSE 96; RESP 20; TEMP 38.8; O2SAT 97; BMI 25.4
--- NOTE | 2021-12-30 16:38 | ECG_ITS ---
Test Reason : SOB Blood Pressure : / mmHG Vent. Rate : 106 BPM Atrial Rate : 106 BPM P-R Int : 220 ms QRS Dur : 074 ms QT Int : 332 ms P-R-T Axes : 041 055 056 degrees QTc Int : 441 ms Sinus tachycardia with 1st degree A-V block Otherwise normal ECG When compared with ECG of 23-FEB-2021 14:45, Heart rate has increased Referred By: Darwin Santos Electronically Signed By:KIMMIE ARCEO
--- NOTE | 2021-12-30 16:40 | ED.SOB ---
HPI - SOB/Dyspnea General Chief Complaint: Dyspnea Stated Complaint: SOB Time Seen by Provider: 12/30/21 16:40 Source: patient Mode of arrival: EMS Limitations: no limitations History of Present Illness HPI Narrative: Patient history of hypertension no known history of lung disease vaccinated against COVID including a booster dose since yesterday evening notice weakness tiredness body aches fever temperature on arrival was 101.9 with cough and shortness of breath saturating 97% at room air with wheezing no other family member sick no chest pain or palpitation no leg swelling Related Data Previous Rx's Medication Instructions Recorded walker with wheels and seat #1 ea 12/25/20 multivitamin 1 tab PO QAM 90 days #90 tabs 10/17/21 cephalexin 500 mg capsule 500 mg PO QID 7 days #28 caps 11/18/21 doxycycline hyclate 100 mg capsule 100 mg PO BID 7 days #14 caps 11/18/21 indomethacin 25 mg capsule 25 mg PO BID 5 days #10 caps 11/18/21 prednisone 20 mg tablet 20 mg PO DAILY 5 days #5 tabs 11/18/21 acetaminophen 325 mg capsule 325 mg PO ONCE PRN pain 30 days 11/19/21 (Tylenol) #30 caps oxycodone 5 mg tablet 5 mg PO BID PRN pain #10 tabs 11/26/21 prednisone 10 mg tablet 10 mg PO BID #10 tabs 11/26/21 atenolol 50 mg tablet 50 mg PO BID 90 days #180 tabs 12/17/21 atorvastatin 40 mg tablet 40 mg PO DAILY 90 days #90 tabs 12/17/21 losartan 25 mg tablet 25 mg PO DAILY 90 days #90 tabs 12/17/21 erythromycin 5 mg/gram (0.5 %) eye 0.5 inch ophthalmic (eye) TID #1 g 12/23/21 ointment indomethacin 50 mg capsule 50 mg PO BID 5 days #10 caps 12/24/21 codeine 10 mg-guaifenesin 100 mg/5 10 ml PO Q6H PRN cough #237 mL 12/30/21 mL oral liquid dexamethasone 6 mg tablet 6 mg PO DAILY #6 tabs 12/30/21 (Decadron) Allergies Allergy/AdvReac Type Severity Reaction Status Date / Time Sulfa (Sulfonamide Allergy Severe ANAPHYLAXIS Verified 12/23/21 12:45 Antibiotics) [SULFA (SULFONAMIDE ANTIBIOTICS)] Review of Systems Review of Systems: Yes all other systems are reviewed and are negative [facility] Past Medical History Medical History Hyperlipidemia Hypertension Surgical History H/O hemorrhoidectomy Hx of colonoscopy Hx of esophagogastroduodenoscopy Social History Social History Household Members: Spouse Housing: Apartment Are you a primary menagerie caretaker to a significant other at home: No Do you presently have visiting nurse or other home services: No Alcohol intake: never Patient Tobacco Use Status: Never used Tobacco e-Cigarette/Vaping Use: Never Used Advance Directives: No Advance Directives Information Provided: No service: No Current occupational status: unemployed Cognitive needs: No Hearing needs: No Vision needs: No Physical Exam Vital Signs: Vital Signs: Last Vital Signs Temp 101.9 F H 12/30/21 16:33 Pulse 97 12/30/21 17:13 Resp 20 12/30/21 17:13 BP 127/70 12/30/21 16:33 Pulse Ox 97 12/30/21 16:33 O2 Del Method 12/30/21 16:33 BMI result Body Mass Index 25.4 Appearance: Alert. Oriented X3. No acute distress. Eyes: No pallor or icterus ENT: Pharynx normal. Oral Mucosa moist Neck: Normal inspection. Neck supple. CVS: Normal heart rate and rhythm. Pulses normal. Respiratory: No respiratory distress. Equal air entry bilateral, prolonged expiration Abdomen: Soft and nontender. Bowel sounds are present, no mass palpable, no CVA tenderness Skin: Skin warm and dry. Normal skin color. Normal skin turgor. Extremities: No lower extremity edema. No calf tenderness Neuro: Oriented X 3. No motor deficit. MDM - SOB/Dyspnea MDM Narrative Medical decision making narrative: Patient with COVID-19 positive saturating 97% on room air , chest x-ray negative for infiltrate discharge patient home on supportive treatment Differential Diagnosis Differential diagnosis: Likely congestive heart failure and pneumonia Lab Data Attestation: I reviewed the patient's lab results. Result diagrams: 12/30/21 17:07 12/30/21 17:07 Labs: Lab Results 12/30/21 12/30/21 12/30/21 Range/Units 17:07 17:07 17:07 WBC 10.5 (4.8-10.8) X10*3/uL RBC 4.10 L (4.60-5.80) X10*6/uL Hgb 12.3 L (14.0-18.0) g/dl Hct 36.2 L (42.0-52.0) % MCV 88.3 (80.0-98.0) fL MCH 30.0 (27.0-33.0) pg MCHC 34.0 (31.0-36.0) g/dl RDW 12.1 (11.0-16.0) % Plt Count 209 (160-400) X10*3/uL MPV 10.2 (9.4-12.4) fL Absolute Nucleated RBC 0.000 (0.0-0.012) X10*3/uL Nucleated RBC % (auto) 0.0 (0.0-0.2) /100WBC Sodium 135 (135-145) mmol/L Potassium 4.0 (3.3-5.1) mmol/L Chloride 103 (96-108) mmol/L Carbon Dioxide 21 L (22-29) mmol/L Anion Gap 15 (12-20) BUN 18 H (9-16) mg/dL Creatinine 1.28 (0.5-1.4) mg/dL Estim Creat Clear Calc 54.7 Estimated GFR 55 Random Glucose 159 H (60-115) mg/dL Calcium 8.4 (8.4-10.2) mg/dL Troponin I High Sens 4.2 (<3.5-35.0) ng/L B-Natriuretic Peptide 57 (<100) pg/mL COVID-19 (CABRERA) (Negative) COVID-19 Clin Com 12/30/21 Range/Units 17:07 WBC (4.8-10.8) X10*3/uL RBC (4.60-5.80) X10*6/uL Hgb (14.0-18.0) g/dl Hct (42.0-52.0) % MCV (80.0-98.0) fL MCH (27.0-33.0) pg MCHC (31.0-36.0) g/dl RDW (11.0-16.0) % Plt Count (160-400) X10*3/uL MPV (9.4-12.4) fL Absolute Nucleated RBC (0.0-0.012) X10*3/uL Nucleated RBC % (auto) (0.0-0.2) /100WBC Sodium (135-145) mmol/L Potassium (3.3-5.1) mmol/L Chloride (96-108) mmol/L Carbon Dioxide (22-29) mmol/L Anion Gap (12-20) BUN (9-16) mg/dL Creatinine (0.5-1.4) mg/dL Estim Creat Clear Calc Estimated GFR Random Glucose (60-115) mg/dL Calcium (8.4-10.2) mg/dL Troponin I High Sens (<3.5-35.0) ng/L B-Natriuretic Peptide (<100) pg/mL COVID-19 (CABRERA) Positive A (Negative) COVID-19 Clin Com See Note ECG Data Attestation: I personally reviewed and interpreted this ECG as follows: Interpretation: Sinus tachycardia with heart rate 106 beats per minute first-degree heart normal axis no acute ST-T wave changes no acute ischemia Discharge Plan Discharge Clinical Impression: COVID-19 Patient Disposition: Home, Self-Care Instructions: COVID-19 (Coronavirus Disease 2019) (ED) Additional Instructions: Social distancing as advised Cough syrup and Decadron as prescribed Use albuterol inhaler 2 puffs every 4-6 hours as needed for shortness of breath/wheezing Report to the ER if increased shortness of breath Prescriptions: New dexamethasone [Decadron] 6 mg tablet 6 mg PO DAILY Qty: 6 0RF codeine-guaifenesin 10-100 mg/5 mL liquid 10 ml PO Q6H PRN (Reason: cough) Qty: 237 0RF No Action (DME) walker with wheels and seat See Rx Instructions .Route .MEDSUPPLY Qty: 1 0RF Rx Instructions: As directed acetaminophen [Tylenol] 325 mg capsule 325 mg PO ONCE PRN (Reason: pain) 30 Days Qty: 30 11RF indomethacin 50 mg capsule 50 mg PO BID 5 Days Qty: 10 0RF Rx Instructions: administer with food or milk prednisone 10 mg tablet 10 mg PO BID Qty: 10 0RF oxycodone 5 mg tablet 5 mg PO BID PRN (Reason: pain) Qty: 10 0RF Rx Instructions: Partial Fill upon patient request. atorvastatin 40 mg tablet 40 mg PO DAILY 90 Days Qty: 90 0RF atenolol 50 mg tablet 50 mg PO BID 90 Days Qty: 180 0RF losartan 25 mg tablet 25 mg PO DAILY 90 Days Qty: 90 0RF prednisone 20 mg tablet 20 mg PO DAILY 5 Days Qty: 5 0RF indomethacin 25 mg capsule 25 mg PO BID 5 Days Qty: 10 0RF Rx Instructions: administer with food or milk doxycycline hyclate 100 mg capsule 100 mg PO BID 7 Days Qty: 14 0RF cephalexin 500 mg capsule 500 mg PO QID 7 Days Qty: 28 0RF erythromycin 5 mg/gram (0.5 %) ointment 0.5 inch ophthalmic (eye) TID Qty: 1 0RF multivitamin Tablet 1 tab PO QAM 90 Days Qty: 90 2RF
[2021-12-30] MEDS: guaiFEN/Codeine SF 200/20/10ML 10 ML LIQUID PO (16:56)
[2021-12-30] MEDS: Acetaminophen 325 MG TABLET 650 MG PO (16:56)
[2021-12-30 17:13] VITALS: PULSE 97; RESP 20; O2SAT 98
[2021-12-30 17:13] LABS: Hematocrit 36.2 % (42.0-52.0); Hemoglobin 12.3 g/dl (14.0-18.0); Mean Corpuscular Volume 88.3 fL (80.0-98.0); Mean Platelet Volume 10.2 fL (9.4-12.4); Platelet Count 209 X10*3/uL (160-400); Red Cell Distribution Width 12.1 % (11.0-16.0); White Blood Count 10.5 X10*3/uL (4.8-10.8)
[2021-12-30] MEDS: Albuterol Sulfate 90 MCG 8 GM INHALER 4 PUFF INHALE (17:13)
[2021-12-30 17:25] LABS: Anion Gap 15 (12-20); Blood Urea Nitrogen 18 mg/dL (9-16); Calcium 8.4 mg/dL (8.4-10.2); Carbon Dioxide 21 mmol/L (22-29); Chloride 103 mmol/L (96-108); Creatinine Clr Calc Pharmacy 54.7; Estimated Glomerular Filt Rate 55; Glucose Random 159 mg/dL (60-115); Sodium 135 mmol/L (135-145)
[2021-12-30 17:27] LABS: COVID-19 Test Positive (Negative)
[2021-12-30 17:33] LABS: B Type Natriuretic Peptide 57 pg/mL (<100); Troponin-I High Sensitivity 4.2 ng/L (<3.5-35.0)
[2021-12-30] MEDS: dexAMETHasone 6 MG TABLET PO (18:10)
== END 2021-12-30 19:28 | disposition home or self-care (01) ==
PROVIDERS: Emergency Provider Internal Medicine; PCP Internal Medicine
DX: U07.1 COVID-19 (principal); R50.9 Fever, unspecified; R06.02 Shortness of breath; I10 Essential (primary) hypertension; E78.5 Hyperlipidemia, unspecified; Z79.02 Long term (current) use of antithrombotics/antiplatelets; Z79.899 Other long term (current) drug therapy
CPT/HCPCS: 71045; 80048; 83880; 84484; 85027; 87635; 93005; 94640; 99284; J8540

== ENCOUNTER → 2022-01-07 12:49 | Outpatient (BNVA) | payer MEDICARE, SELFPAY | PROVIDERS: PCP Internal Medicine; Visit Provider Orthopaedic Surgery | DX: M10.9 Gout, unspecified (principal); M25.631 Stiffness of right wrist, not elsewhere classified | CPT/HCPCS: 99202 ==

== ENCOUNTER 2022-02-14 06:53 | Outpatient (REF) | payer MEDICARE, SELFPAY ==
[2022-02-14 11:20] LABS: MANUAL DIFF FLAG NO
[2022-02-14 11:38] LABS: Basophils Absolute Auto 0.1 X10*3/uL (0.0-0.2); Basophils Percent Auto 0.9 % (0-2); Eosinophils Percent Auto 0.2 % (0-4); Hematocrit 38.6 % (42.0-52.0); Hemoglobin 12.6 g/dl (14.0-18.0); Imm Gran Abs Auto 0.03 X10*3/uL (0.00-0.03); Imm Gran Pct Auto 0.3 % (0.0-0.4); Lymphocytes Absolute Auto 2.3 X10*3/uL (1.2-4.9); Lymphocytes Percent Auto 25.4 % (20-40); Mean Corpuscular HGB Conc 32.6 g/dl (31.0-36.0); Mean Corpuscular Hemoglobin 29.2 pg (27.0-33.0); Mean Corpuscular Volume 89.4 fL (80.0-98.0); Mean Platelet Volume 11.6 fL (9.4-12.4); Monocytes Absolute Auto 0.8 X10*3/uL (0.1-1.2); Monocytes Percent Auto 8.5 % (2-11); Neutrophils Absolute Auto 5.8 x10*3/uL (2.0-8.3); Neutrophils Percent Auto 64.7 % (45-73); Platelet Count 213 X10*3/uL (160-400); Red Blood Count 4.32 X10*6/uL (4.60-5.80); Red Cell Distribution Width 12.9 % (11.0-16.0); White Blood Count 8.9 X10*3/uL (4.8-10.8)
[2022-02-14 12:19] LABS: Alanine Aminotransferase 21 U/L (0-40); Albumin Level 4.2 g/dL (3.5-5.0); Alkaline Phosphatase 91 U/L (39-117); Anion Gap 14 (12-20); Aspartate Amino Transferase 15 U/L (5-37); Bilirubin Total 0.7 mg/dL (0.0-1.0); Blood Urea Nitrogen 16 mg/dL (9-16); Calcium 9.2 mg/dL (8.4-10.2); Carbon Dioxide 26 mmol/L (22-29); Chloride 106 mmol/L (96-108); Cholesterol 162 mg/dL; Estimated Glomerular Filt Rate > 60; Glucose Fasting 97 mg/dL (60-99); HDL Cholesterol 42 mg/dL; LDL Cholesterol Calculated 91 mg/dl; Potassium 4.1 mmol/L (3.3-5.1); Sodium 142 mmol/L (135-145); Total Protein 6.8 g/dL (6.5-8.0); Triglycerides 148 mg/dL; Uric Acid 7.1 mg/dL (3.4-7.0)
[2022-02-14 12:51] LABS: Vitamin B12 418 pg/mL (200-900)
[2022-02-20 12:47] LABS: Vitamin D 25-OH, D2 <4 ng/mL; Vitamin D 25-OH, D3 25 ng/mL; Vitamin D 25-OH, Total 25 ng/mL (30-100)
== END 2022-02-14 06:54 | disposition home or self-care (01) ==
LOC: HO.HMGCLDS 06:53
PROVIDERS: PCP Internal Medicine; Visit Provider Internal Medicine
DX: M10.9 Gout, unspecified (principal); E78.9 Disorder of lipoprotein metabolism, unspecified; G62.9 Polyneuropathy, unspecified; I10 Essential (primary) hypertension; D64.9 Anemia, unspecified
CPT/HCPCS: 36415; 80053; 80061; 82306; 82607; 84550; 85025

== ENCOUNTER 2022-06-27 09:26 | Outpatient (REF) | payer MEDICARE, SELFPAY ==
[2022-06-27 11:41] LABS: Hematocrit 38.7 % (42.0-52.0); Hemoglobin 12.7 g/dl (14.0-18.0)
[2022-06-27 12:05] LABS: Alanine Aminotransferase 25 U/L (0-40); Albumin Level 3.9 g/dL (3.5-5.0); Alkaline Phosphatase 100 U/L (39-117); Anion Gap 13 (12-20); Aspartate Amino Transferase 17 U/L (5-37); Bilirubin Total 0.5 mg/dL (0.0-1.0); Blood Urea Nitrogen 20 mg/dL (9-16); Calcium 8.8 mg/dL (8.4-10.2); Carbon Dioxide 25 mmol/L (22-29); Chloride 107 mmol/L (96-108); Estimated Glomerular Filt Rate > 60; Glucose Random 140 mg/dL (60-115); Potassium 3.8 mmol/L (3.3-5.1); Sodium 141 mmol/L (135-145); Total Protein 6.5 g/dL (6.5-8.0)
== END 2022-06-27 09:27 | disposition home or self-care (01) ==
LOC: HO.HMGCLDS 09:26
PROVIDERS: PCP Internal Medicine; Visit Provider Internal Medicine
DX: M10.9 Gout, unspecified (principal); E78.9 Disorder of lipoprotein metabolism, unspecified; I10 Essential (primary) hypertension; D64.9 Anemia, unspecified
CPT/HCPCS: 36415; 80053; 84550; 85014; 85018

== ENCOUNTER 2022-12-03 14:15 | Outpatient (AMB) | payer OTHER, SELFPAY ==
[2022-12-03 14:24] VITALS: BP 108/64; PULSE 73; O2SAT 95; BMI 26.7
--- NOTE | 2022-12-03 14:24 | MHC.PC.OV ---
Vital Signs 12/03/22 14:24 12/03/22 14:29 Height 6 ft Weight 197 lb 4 oz BMI 26.7 BP 108/64 114/70 Blood Pressure Location Rt brachial Lt brachial Position Sitting Sitting Pulse 73 Pulse Source Pulse Oximeter Pulse Oximetry (%) 95 Oxygen Delivery Method Room Air Intake Visit Reasons: 3 month follow up~ Hypertenion Allergies Sulfa (Sulfonamide Antibiotics) [SULFA (SULFONAMIDE ANTIBIOTICS)] Allergy (Severe, Verified 12/03/22 14:25) ANAPHYLAXIS Medication List - Last Reconciled 12/03/22 by Kaitlyn Bowman MD acetaminophen (Tylenol) 325 mg PO ONCE PRN 90 days allopurinol 100 mg PO DAILY 90 days atenolol 50 mg PO BID 90 days atorvastatin 40 mg PO DAILY 90 days cholecalciferol (vitamin D3) 25 mcg PO DAILY 90 days losartan 25 mg PO DAILY 90 days multivitamin 1 tab PO QAM 90 days mupirocin 2% 1 appl topical BID Tobacco use date assessed: 12/03/22 Fall risk assessment: No Falls in past year Last assessed Fall Risk: 12/03/22 Dental Screening Dental Screen Date: 12/03/22 Did you have a dental visit in the last 12 months?: No Did you have a dental problem in the last 6 months where you did not have access to dental care?: No Was dental information given to patient?: No HPI 3 month follow up~ Hypertenion HPI Details Patient is a 77-year-old gentleman came in today for his regular follow-up visit Patient is stable in his usual state of health and offer no new complain However requesting a script for back belt because of chronic lumbar pain. Hypertension: Patient is on atenolol 50 mg b.i.d. and losartan 25 mg, tolerating medication blood pressure is stable. Lipid control with atorvastatin 40 mg Labs are due to be done today Continue vitamin-D Follow-up 4 months [facility] Medical History Hyperlipidemia Hypertension Surgical History H/O hemorrhoidectomy Hx of colonoscopy Hx of esophagogastroduodenoscopy Social History Household Members: Spouse Housing: Apartment Are you a primary career agent to a significant other at home: No Do you presently have visiting nurse or other home services: No Alcohol intake: never Patient Tobacco Use Status: Never used Tobacco e-Cigarette/Vaping Use: Never Used service: No Current occupational status: unemployed Cognitive needs: No Hearing needs: No Vision needs: No Questionnaire PHQ-9 Over the last 2 weeks, how often have you been bothered by any of the following problems? 38043 - PHQ-9 Billing: Patient declined-do not bill Source: Developed by Drs. Solomon Talamantes, Margarita Em, Rudi Vinson and colleagues, with an educational katie from [employer]. Thrive Questionnaire Date Thrive assessed: 12/03/22 I am a: Patient What is your living situation today?: I have a steady place to live Within the past 12 months, did the food you bought not last and you didn't have the money to get more?: Never true Within the past 12 months, did you worry whether your food would run out before you got money to buy more?: Never true Do you have trouble paying for medicines?: No Do you have trouble getting transportation to medical appointments?: No Do you have trouble paying your heating and electricity bill?: Yes Do you have trouble taking care of your child, family member or friend?: Yes Do you have trouble with day-to-day activities such as bathing, preparing meals, shopping, managing finances, etc.?: Yes Are you currently unemployed and looking for a job?: Yes Are you interested in more education?: Yes Please select the resources that you would like help with: Transportation and Job search/training AUDIT C Alcohol Use Questionnaire (AUDIT-C) 1. How often do you have a drink containing alcohol?: Never 3. How often do you have six or more drinks on one occasion?: Never Total Score: 0 Score Reviewed/Action Taken: Yes EUGENE-7 AMB Questionnaire EUGENE-7 Date EUGENE - 7 assessed: 12/03/22 Feeling nervous, anxious, or on edge: 3 = Nearly every day Not being able to stop or control worryin = Not at all Worrying too much about different things: 0 = Not at all Trouble relaxin = Not at all Being so restless that it is hard to sit still: 0 = Not at all Becoming easily annoyed or irritable: 0 = Not at all Feeling afraid as if something awful might happen: 0 = Not at all Total EUGENE-7 score (0-4 normal; 5-9 mild; 10-14 moderate; 15-21 severe): 3 Source: Developed by Drs. Solomon Talamantes, Margarita Em, Rudi Vinson and colleagues, with an educational katie from [employer]. EUGENE-7 Assessment Billing EUGENE-7 Assessment Tool: EUGENE-7 Assessment 05521 Review of Systems Const Denies chills and Denies fever(s) ENT Denies epistaxis and Denies nasal discharge Card Denies chest pain Resp Denies chest congestion, Denies cough and Denies hemoptysis GI Denies diarrhea and Denies nausea Skin/Breast Denies rash Neuro Reports no additional complaints Psych Reports no additional complaints Endo Reports no additional complaints Physical exam (Primary Care) Vital Signs: Last Vital Signs Pulse 73 12/03/22 14:24 BP 114/70 12/03/22 14:29 Pulse Ox 95 12/03/22 14:24 Oxygen Delivery Method Room Air 12/03/22 14:24 BMI result Body Mass Index 26.7 Tobacco/Smoking Status: Tobacco use Status Tobacco use date assessed 12/03/22 12/03/22 14:26 Patient Tobacco Use Status Never used Tobacco 12/03/22 14:26 e-Cigarette/Vaping Use Never Used 12/03/22 14:26 Thrive Assessment: Date of Thrive Assessment Date Thrive assessed 12/03/22 12/03/22 15:00 Const General: cooperative, comfortable and no acute distress Orientation/consciousness: patient oriented x3 HENKY Head: Yes normocephalic Eyes General: appearance normal, both eyes and all related structures Neck Neck: Yes supple Resp Effort & Inspection: normal respiratory effort, no cough and no stridor Cardio Rhythm: regular rhythm Heart sounds: S1 normal heart sound present and S2 normal heart sound present Skin General skin exam: turgor normal Neuro General: patient oriented x3, tone normal and moves all extremities Extrem Other: Mild pitting edema ankles bilateral chronic, resolves in the morning it and the day have swelling again Assessment and Plan Assessment & Plan (1) Hypertension, essential: Code(s): I10 - Essential (primary) hypertension (2) Lipid disorder: Code(s): E78.9 - Disorder of lipoprotein metabolism, unspecified (3) Gouty arthritis of right hand: Code(s): M10.9 - Gout, unspecified (4) Vitamin D deficiency: Code(s): E55.9 - Vitamin D deficiency, unspecified (5) Lumbar pain: Code(s): M54.50 - Low back pain, unspecified (6) Gouty arthritis: Code(s): M10.9 - Gout, unspecified (7) Chronic edema: Code(s): R60.9 - Edema, unspecified Plan Patient is a 77-year-old gentleman came in today for his regular follow-up visit Patient is stable in his usual state of health and offer no new complain However requesting a script for back belt because of chronic lumbar pain. Hypertension: Patient is on atenolol 50 mg b.i.d. and losartan 25 mg, tolerating medication blood pressure is stable. Lipid control with atorvastatin 40 mg Labs are due to be done today Continue vitamin-D Follow-up 4 months Orders: Orders Comprehensive Met. Panel Today E55.9 - Vitamin D deficiency, unspecified, E78.9 - Disorder of lipoprotein metabolism, unspecified, I10 - Essential (primary) hypertension, M10.9 - Gout, unspecified LDL Cholesterol Direct Today E55.9 - Vitamin D deficiency, unspecified, E78.9 - Disorder of lipoprotein metabolism, unspecified, I10 - Essential (primary) hypertension, M10.9 - Gout, unspecified Vitamin D 25-OH (D2 and D3) Today E55.9 - Vitamin D deficiency, unspecified, E78.9 - Disorder of lipoprotein metabolism, unspecified, I10 - Essential (primary) hypertension, M10.9 - Gout, unspecified Complete Blood Count Auto Diff Today E55.9 - Vitamin D deficiency, unspecified, E78.9 - Disorder of lipoprotein metabolism, unspecified, I10 - Essential (primary) hypertension, M10.9 - Gout, unspecified Medications: New [Velcro back belt] As directed 1 ea 0RF M54.50 - Low back pain, unspecified Coding Level of Care Code Est Pt Level 4 (62684) Diagnoses Hypertension, essential I10 Lipid disorder E78.9 Gouty arthritis of right hand M10.9 Vitamin D deficiency E55.9 Lumbar pain M54.50 Gouty arthritis M10.9 Chronic edema R60.9 Additional Codes EUGENE-7 Assessment Billing - EUGENE-7 Assessment Tool: EUGENE-7 Assessment 82299 ([id number])
[2022-12-03 14:29] VITALS: BP 114/70
== END 2022-12-03 14:51 | disposition home or self-care (01) ==
PROVIDERS: PCP Internal Medicine; Visit Provider Internal Medicine
DX: I10 Essential (primary) hypertension (principal); E78.9 Disorder of lipoprotein metabolism, unspecified; M10.9 Gout, unspecified; E55.9 Vitamin D deficiency, unspecified; M54.50 Low back pain, unspecified; R60.9 Edema, unspecified
CPT/HCPCS: 99214

== ENCOUNTER 2022-12-03 14:52 | Outpatient (REF) | payer OTHER, SELFPAY ==
[2022-12-03 17:09] LABS: Alanine Aminotransferase 27 U/L (0-40); Albumin Level 3.9 g/dL (3.5-5.0); Alkaline Phosphatase 94 U/L (39-117); Anion Gap 12 (12-20); Aspartate Amino Transferase 18 U/L (5-37); Bilirubin Total 0.4 mg/dL (0.0-1.0); Blood Urea Nitrogen 25 mg/dL (9-16); Calcium 9.5 mg/dL (8.4-10.2); Carbon Dioxide 25 mmol/L (22-29); Chloride 109 mmol/L (96-108); Estimated Glomerular Filt Rate 49; Glucose Random 119 mg/dL (60-115); Sodium 142 mmol/L (135-145)
[2022-12-05 05:14] LABS: LDL Cholesterol Direct 94 mg/dL (<100)
== END 2022-12-03 14:53 | disposition home or self-care (01) ==
LOC: HO.HMGCLDS 14:52
PROVIDERS: PCP Internal Medicine; Visit Provider Internal Medicine
DX: E55.9 Vitamin D deficiency, unspecified (principal); E78.9 Disorder of lipoprotein metabolism, unspecified; M10.9 Gout, unspecified; I10 Essential (primary) hypertension
CPT/HCPCS: 36415; 80053; 82306; 83721

== ENCOUNTER 2023-04-01 15:09 | Outpatient (AMB) | payer OTHER, SELFPAY ==
--- NOTE | 2023-04-01 15:11 | MHC.PC.OV ---
Vital Signs 04/01/23 15:13 Height 6 ft Weight 200 lb BMI 27.1 BP 138/76 Blood Pressure Location Rt brachial Position Sitting Pulse 62 Pulse Source Pulse Oximeter Pulse Oximetry (%) 98 Oxygen Delivery Method Room Air Intake Visit Reasons: 4 month follow up Allergies Sulfa (Sulfonamide Antibiotics) [SULFA (SULFONAMIDE ANTIBIOTICS)] Allergy (Severe, Verified 04/01/23 15:13) ANAPHYLAXIS Medication List - Last Reconciled 04/01/23 by Kaitlyn Bowman MD acetaminophen (Tylenol) 325 mg PO ONCE PRN 90 days allopurinol 100 mg PO DAILY 90 days atenolol 50 mg PO BID 90 days atorvastatin 40 mg PO DAILY 90 days cholecalciferol (vitamin D3) 25 mcg PO DAILY 90 days losartan 25 mg PO DAILY 90 days multivitamin 1 tab PO QAM 90 days mupirocin 2% 1 appl topical BID [Velcro back belt As directed] Tobacco use date assessed: 04/01/23 Fall risk assessment: No Falls in past year Last assessed Fall Risk: 04/01/23 Dental Screening Dental Screen Date: 04/01/23 Did you have a dental visit in the last 12 months?: Yes Did you have a dental problem in the last 6 months where you did not have access to dental care?: No Was dental information given to patient?: Patient has dentist HPI 4 month follow up HPI Details Patient is a 77-year-old gentleman came in today for his regular follow-up visit Patient has history of recurrent gout but he has been stable for the past 6 months since we started allopurinol until recently He started having pain right wrist and was evaluated in urgent care given medication and he is feeling better I will be checking his uric acid level again Patient is stable in his usual state of health and offer no new complain Hypertension: Patient is on atenolol 50 mg b.i.d. and losartan 25 mg, tolerating medication blood pressure is stable. Lipid control with atorvastatin 40 mg Labs are due Elevated creatinine last time he had labs his creatinine was in 1.4 range we will be rechecking that Peripheral neuropathy stable Continue vitamin-D Follow-up 4 months COUNTS INCLUDE 234 BEDS AT [facility] Medical History Hyperlipidemia Hypertension Surgical History Hx of esophagogastroduodenoscopy Hx of colonoscopy H/O hemorrhoidectomy Social History Household Members: Spouse Housing: Apartment Are you a primary transition of care specialist to a significant other at home: No Do you presently have visiting nurse or other home services: No Alcohol intake: never Patient Tobacco Use Status: Never used Tobacco e-Cigarette/Vaping Use: Never Used service: No Current occupational status: unemployed Cognitive needs: No Hearing needs: No Vision needs: No Questionnaire Thrive Questionnaire Date Thrive assessed: 12/03/22 AUDIT C Alcohol Use Questionnaire (AUDIT-C) 1. How often do you have a drink containing alcohol?: Never 3. How often do you have six or more drinks on one occasion?: Never Total Score: 0 EUGENE-7 AMB Questionnaire EUGENE-7 Date EUGENE - 7 assessed: 12/03/22 Source: Developed by Drs. Solomon Talamantes, Margarita Em, Rudi Vinson and colleagues, with an educational katie from [employer]. Review of Systems Const Denies chills and Denies fever(s) ENT Denies epistaxis and Denies nasal discharge Card Denies chest pain Resp Denies chest congestion, Denies cough and Denies hemoptysis GI Denies diarrhea and Denies nausea Skin/Breast Denies rash Neuro Reports no additional complaints Psych Reports no additional complaints Endo Reports no additional complaints Physical exam (Primary Care) Vital Signs: Last Vital Signs Pulse 62 04/01/23 15:13 BP 138/76 04/01/23 15:13 Pulse Ox 98 04/01/23 15:13 Oxygen Delivery Method Room Air 04/01/23 15:13 BMI result Body Mass Index 27.1 Tobacco/Smoking Status: Tobacco use Status Tobacco use date assessed 04/01/23 04/01/23 15:14 Patient Tobacco Use Status Never used Tobacco 04/01/23 15:14 e-Cigarette/Vaping Use Never Used 04/01/23 15:14 Thrive Assessment: Date of Thrive Assessment Date Thrive assessed 12/03/22 04/01/23 15:14 Const General: cooperative, comfortable and no acute distress Orientation/consciousness: patient oriented x3 HENMT Head: Yes normocephalic Eyes General: appearance normal, both eyes and all related structures Neck Neck: Yes supple Resp Effort & Inspection: normal respiratory effort, no cough and no stridor Cardio Rhythm: regular rhythm Heart sounds: S1 normal heart sound present and S2 normal heart sound present Skin General skin exam: turgor normal Neuro General: patient oriented x3, tone normal and moves all extremities Extrem Right lower extremity: no edema Left lower extremity: no edema Assessment and Plan Assessment & Plan (1) Hypertension, essential: Code(s): I10 - Essential (primary) hypertension (2) Lipid disorder: Code(s): E78.9 - Disorder of lipoprotein metabolism, unspecified (3) Anemia: Code(s): D64.9 - Anemia, unspecified Qualifiers: Anemia type: other cause Other causes of anemia: chronic disease, other Qualified Code(s): D63.8 - Anemia in other chronic diseases classified elsewhere (4) Peripheral neuropathy: Code(s): G62.9 - Polyneuropathy, unspecified Qualifiers: Peripheral neuropathy type: idiopathic neuropathy, unspecified Qualified Code(s): G60.9 - Hereditary and idiopathic neuropathy, unspecified (5) Elevated serum creatinine: Code(s): R79.89 - Other specified abnormal findings of blood chemistry (6) Gouty arthritis of right hand: Code(s): M10.9 - Gout, unspecified (7) Vitamin D deficiency: Code(s): E55.9 - Vitamin D deficiency, unspecified Plan Patient is a 77-year-old gentleman came in today for his regular follow-up visit Patient has history of recurrent gout but he has been stable for the past 6 months since we started allopurinol until recently He started having pain right wrist and was evaluated in urgent care given medication and he is feeling better I will be checking his uric acid level again Patient is stable in his usual state of health and offer no new complain Hypertension: Patient is on atenolol 50 mg b.i.d. and losartan 25 mg, tolerating medication blood pressure is stable. Lipid control with atorvastatin 40 mg Labs are due Elevated creatinine last time he had labs his creatinine was in 1.4 range we will be rechecking that Peripheral neuropathy stable Continue vitamin-D Follow-up 4 months Orders: Orders Complete Blood Count Auto Diff Today D64.9 - Anemia, unspecified, E78.9 - Disorder of lipoprotein metabolism, unspecified, G62.9 - Polyneuropathy, unspecified, I10 - Essential (primary) hypertension, M10.9 - Gout, unspecified, R79.89 - Other specified abnormal findings of blood chemistry Comprehensive Met. Panel Today D64.9 - Anemia, unspecified, E78.9 - Disorder of lipoprotein metabolism, unspecified, G62.9 - Polyneuropathy, unspecified, I10 - Essential (primary) hypertension, M10.9 - Gout, unspecified, R79.89 - Other specified abnormal findings of blood chemistry Uric Acid Today D64.9 - Anemia, unspecified, E78.9 - Disorder of lipoprotein metabolism, unspecified, G62.9 - Polyneuropathy, unspecified, I10 - Essential (primary) hypertension, M10.9 - Gout, unspecified, R79.89 - Other specified abnormal findings of blood chemistry Coding Level of Care Code Est Pt Level 4 (57704) Diagnoses Hypertension, essential I10 Lipid disorder E78.9 Anemia in other chronic diseases classified elsewhere D63.8 Anemia type: other cause Other causes of anemia: chronic disease, other Idiopathic peripheral neuropathy G60.9 Peripheral neuropathy type: idiopathic neuropathy, unspecified Elevated serum creatinine R79.89 Gouty arthritis of right hand M10.9 Vitamin D deficiency E55.9
[2023-04-01 15:13] VITALS: BP 138/76; PULSE 62; O2SAT 98; BMI 27.1
== END 2023-04-01 16:55 | disposition home or self-care (01) ==
PROVIDERS: PCP Internal Medicine; Visit Provider Internal Medicine
DX: I10 Essential (primary) hypertension (principal); E78.9 Disorder of lipoprotein metabolism, unspecified; D63.8 Anemia in other chronic diseases classified elsewhere; G60.9 Hereditary and idiopathic neuropathy, unspecified; R79.89 Other specified abnormal findings of blood chemistry; M10.9 Gout, unspecified; E55.9 Vitamin D deficiency, unspecified
CPT/HCPCS: 99214

== ENCOUNTER 2023-04-07 13:42 | Outpatient (REF) | payer OTHER, SELFPAY ==
[2023-04-07 16:12] LABS: MANUAL DIFF FLAG NO
[2023-04-07 16:22] LABS: Basophils Absolute Auto 0.1 X10*3/uL (0.0-0.2); Basophils Percent Auto 1.3 % (0-2); Eosinophils Absolute Auto 0.1 X10*3/uL (0.0-0.4); Eosinophils Percent Auto 1.1 % (0-4); Hematocrit 39.3 % (42.0-52.0); Hemoglobin 12.6 g/dl (14.0-18.0); Imm Gran Abs Auto 0.02 X10*3/uL (0.00-0.03); Imm Gran Pct Auto 0.4 % (0.0-0.4); Lymphocytes Absolute Auto 2.4 X10*3/uL (1.2-4.9); Lymphocytes Percent Auto 43.7 % (20-40); Mean Corpuscular HGB Conc 32.1 g/dl (31.0-36.0); Mean Corpuscular Hemoglobin 29.4 pg (27.0-33.0); Mean Corpuscular Volume 91.6 fL (80.0-98.0); Mean Platelet Volume 11.3 fL (9.4-12.4); Monocytes Absolute Auto 0.6 X10*3/uL (0.1-1.2); Monocytes Percent Auto 10.7 % (2-11); Neutrophils Absolute Auto 2.4 x10*3/uL (2.0-8.3); Neutrophils Percent Auto 42.8 % (45-73); Platelet Count 201 X10*3/uL (160-400); Red Blood Count 4.29 X10*6/uL (4.60-5.80); Red Cell Distribution Width 12.6 % (11.0-16.0); White Blood Count 5.5 X10*3/uL (4.8-10.8)
[2023-04-07 16:36] LABS: Alanine Aminotransferase 27 U/L (0-40); Albumin Level 3.9 g/dL (3.5-5.0); Alkaline Phosphatase 102 U/L (39-117); Anion Gap 9 (12-20); Aspartate Amino Transferase 18 U/L (5-37); Bilirubin Total 0.4 mg/dL (0.0-1.0); Blood Urea Nitrogen 19 mg/dL (9-16); Calcium 8.9 mg/dL (8.4-10.2); Carbon Dioxide 27 mmol/L (22-29); Chloride 108 mmol/L (96-108); Estimated Glomerular Filt Rate > 60; Glucose Random 128 mg/dL (60-115); Sodium 140 mmol/L (135-145); Total Protein 6.8 g/dL (6.5-8.0); Uric Acid 6.7 mg/dL (3.4-7.0)
== END 2023-04-07 13:43 | disposition home or self-care (01) ==
LOC: HO.HMGCLDS 13:42
PROVIDERS: PCP Internal Medicine; Visit Provider Internal Medicine
DX: I10 Essential (primary) hypertension (principal); E78.9 Disorder of lipoprotein metabolism, unspecified; D64.9 Anemia, unspecified; M10.9 Gout, unspecified; G62.9 Polyneuropathy, unspecified; R79.89 Other specified abnormal findings of blood chemistry
CPT/HCPCS: 36415; 80053; 84550; 85025

== ENCOUNTER 2023-06-08 10:18 | Outpatient (REF) | payer OTHER, SELFPAY ==
[2023-06-08 13:27] LABS: MANUAL DIFF FLAG NO
[2023-06-08 13:35] LABS: Basophils Absolute Auto 0.1 X10*3/uL (0.0-0.2); Basophils Percent Auto 1.5 % (0-2); Eosinophils Absolute Auto 0.1 X10*3/uL (0.0-0.4); Eosinophils Percent Auto 1.1 % (0-4); Hematocrit 38.6 % (42.0-52.0); Hemoglobin 12.9 g/dl (14.0-18.0); Imm Gran Abs Auto 0.02 X10*3/uL (0.00-0.03); Imm Gran Pct Auto 0.3 % (0.0-0.4); Lymphocytes Absolute Auto 2.1 X10*3/uL (1.2-4.9); Lymphocytes Percent Auto 34.8 % (20-40); Mean Corpuscular HGB Conc 33.4 g/dl (31.0-36.0); Mean Corpuscular Hemoglobin 29.8 pg (27.0-33.0); Mean Corpuscular Volume 89.1 fL (80.0-98.0); Mean Platelet Volume 11.5 fL (9.4-12.4); Monocytes Absolute Auto 0.6 X10*3/uL (0.1-1.2); Monocytes Percent Auto 10.1 % (2-11); Neutrophils Absolute Auto 3.2 x10*3/uL (2.0-8.3); Neutrophils Percent Auto 52.2 % (45-73); Platelet Count 210 X10*3/uL (160-400); Red Blood Count 4.33 X10*6/uL (4.60-5.80); Red Cell Distribution Width 12.4 % (11.0-16.0); White Blood Count 6.1 X10*3/uL (4.8-10.8)
[2023-06-08 13:50] LABS: Anion Gap 11 (12-20); Blood Urea Nitrogen 20 mg/dL (9-16); Calcium 9.3 mg/dL (8.4-10.2); Carbon Dioxide 25 mmol/L (22-29); Chloride 108 mmol/L (96-108); Estimated Glomerular Filt Rate > 60; Glucose Random 119 mg/dL (60-115); Potassium 3.8 mmol/L (3.3-5.1); Sodium 140 mmol/L (135-145)
== END 2023-06-08 10:19 | disposition home or self-care (01) ==
LOC: HO.HMGCLDS 10:18
PROVIDERS: PCP Internal Medicine; Visit Provider Internal Medicine
DX: I10 Essential (primary) hypertension (principal); R79.89 Other specified abnormal findings of blood chemistry; E78.9 Disorder of lipoprotein metabolism, unspecified; M10.9 Gout, unspecified; E55.9 Vitamin D deficiency, unspecified
CPT/HCPCS: 36415; 80048; 85025

== ENCOUNTER 2023-06-23 12:22 | Outpatient (AMB) | payer OTHER, SELFPAY ==
[2023-06-23 12:29] VITALS: BP 130/70; PULSE 66; O2SAT 96; BMI 26.4
--- NOTE | 2023-06-23 12:29 | A.OFFPC_ITS ---
Vital Signs 3 06/23/23 12:29 Height 6 ft Weight 195 lb BMI 26.4 BP 130/70 Blood Pressure Location Lt brachial Position Sitting Pulse 66 Pulse Source Pulse Oximeter Pulse Oximetry (%) 96 Oxygen Delivery Method Room Air Intake Visit Reasons: Lt Eye Cataract Surgery Allergies Sulfa (Sulfonamide Antibiotics) [SULFA (SULFONAMIDE ANTIBIOTICS)] Allergy (Severe, Verified 06/23/23 12:31) ANAPHYLAXIS Medication List - Last Reconciled 06/23/23 by Kaitlyn Bowman MD acetaminophen (Tylenol) 325 mg PO ONCE PRN 90 days allopurinol 100 mg PO DAILY 90 days atenolol 50 mg PO BID 90 days atorvastatin 40 mg PO DAILY 90 days cholecalciferol (vitamin D3) 25 mcg PO DAILY 90 days losartan 25 mg PO DAILY 90 days multivitamin 1 tab PO QAM 90 days mupirocin 2% 1 appl topical BID [Velcro back belt As directed] Tobacco use date assessed: 06/23/23 Fall risk assessment: No Falls in past year Last assessed Fall Risk: 06/23/23 Dental Screening Dental Screen Date: 06/23/23 Did you have a dental visit in the last 12 months?: No Was dental information given to patient?: Patient has dentist HPI Lt Eye Cataract Surgery 2 HPI0 Details Patient is 78-year-old gentleman came today to be evaluated for cataract surgery for his left eye on 07/08/2023 and then right eye 07/22/2020 [facility] Patient is in his usual state of health and offer no complaint other than having pain in his great toe both feet Patient have a history of gout with flare-up every now and. I have sent prednisone 20 mg to be taken once a day for 5 days Labs were done in March his kidney functions are intact liver functions are intact Blood pressure controlled Medication list reviewed Patient is clear for cataract surgery PFSH Medical History Hyperlipidemia Hypertension Surgical History Hx of esophagogastroduodenoscopy Hx of colonoscopy H/O hemorrhoidectomy Social History Household Members: Spouse Housing: Apartment Are you a primary career consultant to a significant other at home: No Do you presently have visiting nurse or other home services: No Alcohol intake: never Patient Tobacco Use Status: Never used Tobacco e-Cigarette/Vaping Use: Never Used service: No Current occupational status: unemployed Cognitive needs: No Hearing needs: No Vision needs: No Questionnaire Thrive Questionnaire Date Thrive assessed: 12/03/22 EUGENE-7 AMB Questionnaire EUGENE-7 Date EUGENE - 7 assessed: 12/03/22 Source: Developed by Drs. Solomon Talamantes, Margarita Em, Rudi Vinson and colleagues, with an educational katie from [email or web address]. Review of Systems Const Denies chills, Denies excessive sweating, Denies fever(s) and Denies poor appetite Eyes Denies blurry vision and Denies eye pain ENT Denies disequilibrium, Denies sore throat, Denies throat swelling and Denies tongue swelling Card Denies chest pain at rest, Denies radiating jaw, neck or arm pain and Denies paroxysmal nocturnal dyspnea Resp Denies cough and Denies hemoptysis GI Denies melena, Denies change in stool character, Denies coffee ground emesis and Denies vomiting Musc Reports as per HPI Skin/Breast Reports as per HPI Neuro Denies tremor(s) and Denies disequilibrium Endo Denies cold intolerance and Denies excessive sweating Aller/Immun Denies throat swelling and Denies tongue swelling Physical exam (Primary Care) Vital Signs: Last Vital Signs Pulse 66 06/23/23 12:29 BP 130/70 06/23/23 12:29 Pulse Ox 96 06/23/23 12:29 Oxygen Delivery Method Room Air 06/23/23 12:29 BMI result Body Mass Index 26.4 Tobacco/Smoking Status: Tobacco use Status Tobacco use date assessed 06/23/23 06/23/23 12:33 Patient Tobacco Use Status Never used Tobacco 06/23/23 12:33 e-Cigarette/Vaping Use Never Used 06/23/23 12:33 Thrive Assessment: Date of Thrive Assessment Date Thrive assessed 12/03/22 06/23/23 12:33 Const General: cooperative, comfortable and no acute distress Orientation/consciousness: patient oriented x3 HENMT Head: Yes normocephalic and Yes atraumatic Ears: hearing grossly normal bilaterally Eyes General: appearance normal, both eyes and all related structures Neck Neck: Yes no lymphadenopathy and No tracheal deviation Resp Effort & Inspection: normal respiratory effort, able to speak in complete sentences and no audible wheezes Cardio Rhythm: regular rhythm Heart sounds: S1 normal heart sound present and S2 normal heart sound present GI Palpation (GI): Soft to palpation and nontender Auscultation: normal bowel sounds Skin General skin exam: turgor normal Neuro General: patient oriented x3 and moves all extremities Gait exam (Neuro): Normal gait present Extrem Right lower extremity: no edema Left lower extremity: no edema Ankle/foot/toe images: 2 1. Site of pain 2. Site of pain Psych Affect: normal affect Attitude: cooperative Assessment and Plan Assessment & Plan (1) Pre-op evaluation: Code(s): Z01.818 - Encounter for other preprocedural examination (2) Cataract, bilateral: Code(s): H26.9 - Unspecified cataract Qualifiers: Cataract type: age-related Age-related cataract type: other Qualified Code(s): H25.89 - Other age-related cataract (3) Acute gout: Code(s): M10.9 - Gout, unspecified Qualifiers: Gout site: foot Laterality: unspecified laterality Gout etiology: i diopathic Qualified Code(s): M10.079 - Idiopathic gout, unspecified ankle and foot Plan Patient is 78-year-old gentleman came today to be evaluated for cataract surgery for his left eye on 07/08/2023 and then right eye 07/22/2020 [facility] Patient is in his usual state of health and offer no complaint other than having pain in his great toe both feet Patient have a history of gout with flare-up every now and. I have sent prednisone 20 mg to be taken once a day for 5 days Labs were done in March his kidney functions are intact liver functions are intact Blood pressure controlled Medication list reviewed Patient is clear for cataract surgery Medications: New 2 prednisone 20 mg PO DAILY 5 tabs 0RF 5 days Coding Level of Care Code Est Pt Level 4 (03747) Diagnoses Pre-op evaluation Z01.818 Other age-related cataract of both eyes H25.89 Cataract type: age-related Age-related cataract type: other Acute idiopathic gout of foot, unspecified laterality M10.079 Gout site: foot Laterality: unspecified laterality Gout etiology: idiopathic
== END 2023-06-23 13:39 | disposition home or self-care (01) ==
PROVIDERS: PCP Internal Medicine; Visit Provider Internal Medicine
DX: Z01.818 Encounter for other preprocedural examination (principal); H25.89 Other age-related cataract; M10.079 Idiopathic gout, unspecified ankle and foot
CPT/HCPCS: 99214

== ENCOUNTER 2023-08-07 04:59 | Emergency (ER) | payer OTHER, SELFPAY ==
--- NOTE | ~2023-08-07 | XR_ITS ---
EXAMINATION: XR CHEST CLINICAL INFORMATION: Cough COMPARISON: December 2021 TECHNIQUE: 2 views of the chest were obtained. FINDINGS: No significant abnormality is noted involving the heart, lungs, mediastinum, bony thorax or soft tissues. XR/XR chest 2V IMPRESSION: Unremarkable examination, without interval change.
[2023-08-07 05:05] VITALS: BP 188/98; PULSE 86; O2SAT 99; BMI 28.6
[2023-08-07 05:08] VITALS: BP 154/81; PULSE 99; RESP 17; TEMP 37.7; O2SAT 98
[2023-08-07 05:53] LABS: Influenza A PCR NEGATIVE (Negative); Influenza B PCR NEGATIVE (Negative); Resp Syncy Virus RNA Qual PCR NEGATIVE (Negative); SARS COV2 PCR INHOUSE NEGATIVE (Negative)
--- NOTE | 2023-08-07 06:54 | ED_ITS ---
HPI - URI/Sore Throat General Chief Complaint: Upper Respiratory Symptoms Stated Complaint: weakness Time Seen by Provider: 08/07/23 06:45 Source: patient Mode of arrival: ambulatory Limitations: no limitations History of Present Illness HPI Narrative: 78-year-old male with a history of hypertension, hyperlipidemia, anemia, gout, peripheral neuropathy, subdural hematoma who presents emergency department for evaluation of cough, fever, chills and fatigue. Patient states his symptoms started yesterday and got worse this morning. Patient states that his cough is nonproductive. He denied chest pain or shortness of breath. He denied nausea, vomiting, diarrhea but does complain of body aches. Related Data Previous Rx's ?Medication ?Instructions ?Recorded mupirocin 2 % topical ointment 1 appl topical BID #15 grams 04/11/22 acetaminophen 325 mg capsule 325 mg PO ONCE PRN pain 90 days 06/27/22 (Tylenol) #90 caps allopurinol 100 mg tablet 100 mg PO DAILY 90 days #90 tabs 06/27/22 Velcro back belt #1 ea 12/03/22 atenolol 50 mg tablet 50 mg PO BID 90 days #180 tabs 02/23/23 losartan 25 mg tablet 25 mg PO DAILY 90 days #90 tabs 05/12/23 prednisone 20 mg tablet 20 mg PO DAILY 5 days #5 tabs 06/23/23 atorvastatin 40 mg tablet 40 mg PO DAILY 90 days #90 tabs 07/20/23 cholecalciferol (vitamin D3) 25 25 mcg PO DAILY 90 days #90 tabs 07/20/23 mcg (1,000 unit) tablet multivitamin 1 tab PO QAM 90 days #90 tabs 07/20/23 benzonatate 100 mg capsule 200 mg (2 x 100 mg) PO TID PRN 08/07/23 cough #14 caps Allergies Allergy/AdvReac Type Severity Reaction Status Date / Time Sulfa (Sulfonamide Allergy Severe ANAPHYLAXIS Verified 08/07/23 05:07 Antibiotics) [SULFA (SULFONAMIDE ANTIBIOTICS)] Review of Systems Review of Systems: Yes all other systems are reviewed and are negative [facility] Past Medical History [facility] Narrative: Social history: Denies tobacco, alcohol and drug use. Medical History Hyperlipidemia Hypertension Surgical History Hx of esophagogastroduodenoscopy Hx of colonoscopy H/O hemorrhoidectomy Social History Social History Household Members: Spouse Housing: Apartment Are you a primary healthcare corporate account director to a significant other at home: No Do you presently have visiting nurse or other home services: No Alcohol intake: never Patient Tobacco Use Status: Never used Tobacco Smoked in Last 30 Days: No e-Cigarette/Vaping Use: Never Used Advance Directives: No Advance Directives Information Provided: No service: No Current occupational status: unemployed Cognitive needs: No Hearing needs: No Vision needs: No Physical Exam Vital Signs: Vital Signs: Last Vital Signs Temp 100 F 08/07/23 05:08 Pulse 99 08/07/23 05:08 Resp 17 08/07/23 05:08 BP 154/81 H 08/07/23 05:08 Pulse Ox 98 08/07/23 05:08 O2 Del Method Room Air 08/07/23 05:08 BMI result Body Mass Index 28.6 Vital signs revealed an elevated temperature of a 100 degrees F elevated blood pressure 154/81 otherwise unremarkable Exam: General: Awake, alert in no distress Head: Normocephalic, atraumatic EENT: PERRL, Lids normal, sclera normal, conjunctiva normal, nose normal , ears normal, throat without erythema or exudates Neck: Supple, no adenopathy Lung: breath sounds symmetric, no wheezing, rales or rhonchi Chest: symmetric movement, nontender Heart: regular rate and rhythm, normal S1, S2 no murmurs or rubs Abdomen: soft, non-tender, nondistended, normal bowel sounds Back: no vertebral tenderness, no CVAT Extremities: no deformities, moves all extremities symmetrically Neuro: Awake, alert, oriented, normal speech, cranial nerves intact, moves all extremities symmetrically Psych: Pleasant, cooperative Medications Administered Discontinued Medications Generic Name Dose Route Start Last Admin Trade Name Freq PRN Reason Stop Dose Admin Ibuprofen 400 mg 08/07/23 06:55 08/07/23 07:18 Ibuprofen 400 Mg Tablet PO 08/07/23 06:56 400 mg ONCE STA Administration Medical Decision Making Medical Decision Making MDM Narrative: 78-year-old male with a history of hypertension, hyperlipidemia, anemia, gout, peripheral neuropathy, subdural hematoma who presents emergency department for evaluation of cough, fever, chills and fatigue. Patient states his symptoms s tarted yesterday and got worse this morning. Patient states that his cough is nonproductive. He denied chest pain or shortness of breath. He denied nausea, vomiting, diarrhea but does complain of body aches. Vital signs were normal. Exam was unremarkable. Differential diagnosis: ?Includes but is not limited to pneumonia, bronchitis, viral URI, viral syndrome Following evaluation was ordered: Chest x-ray, urinalysis, COVID-19, influenza, RSV Patient was initially treated with the following: Tessalon Perles 200 mg orally Course: 10:03 Patient's chest x-ray revealed no evidence of congestive heart failure pneumonia. COVID-19, influenza and RSV were negative. Urinalysis was negative. Patient's symptoms are consistent with a viral syndrome and I did discuss this with him. At this time I do not think the patient needs antibiotics. Patient was given a prescription for Tessalon Perles, printed and verbal instructions and discharged home. Admission/Observation Consideration of admission/observation: Escalation of care including admission/observation considered Lab Data MDM Lab Attestation statement: I reviewed the patient's lab results. Labs: Lab Results 08/07/23 08/07/23 Range/Units 05:10 07:11 Urine Color Yellow Urine Appearance Clear Urine pH 6.0 (5.0-9.0) Ur Specific [place] 1.015 (1.005-1.025) Urine Protein Negative (Neg-Trace) mg/dL Urine Glucose (UA) Negative (Negative) mg/dL Urine Ketones Negative (Negative) mg/dL Urine Blood Negative (Negative) Urine Nitrite Negative (Negative) Ur Leukocyte Esterase Negative (Negative) Influenza Type A (PCR) NEGATIVE (Negative) Influenza Type B (PCR) NEGATIVE (Negative) RSV RNA Qual (PCR) NEGATIVE (Negative) SARS-CoV-2 RNA (RT-PCR) NEGATIVE (Negative) Independent Interpretation I performed an independent interpretation of an: Plain X-Ray Interpretation: My interpretation patient's chest x-ray is as follows: No acute disease Radiology Impression Discussion of test interpretation with radiology: I have reviewed the radiologist's reading. Radiologist Impression: XR chest 2V IMPRESSION: Unremarkable examination, without interval change. Dictated By: Mulligan,Rolina MD Prescription Management I considered prescription management with: Other (Antitussives) Chronic Conditions Patient?s care impacted by: Hypertension Discharge Plan Discharge Clinical Impression: Viral URI Patient Disposition: Home, Self-Care Instructions: Viral Syndrome (ED) Additional Instructions: Your chest x-ray was normal with no evidence for pneumonia which is reassuring Your urine test was negative for infection. Your COVID-19, RSV and influenza tests were negative. Your symptoms are consistent with a viral infection. Take ibuprofen 200 mg pills, 2 pills every 6 hours as needed for pain or fever. Take Tylenol (acetaminophen) 500 mg pills, 2 pills every 6 hours as needed for pain or fever. Take Tessalon Perles (benzonatate) 200 mg pills, 1 pill 3 times a day as needed for cough Follow-up with your doctor in 2 days. Please return to the emergency department if your symptoms get worse or if you develop any symptoms that are concerning to you. Prescriptions: New benzonatate 100 mg capsule 200 mg PO TID PRN (Reason: cough) Qty: 14 0RF No Action atenolol 50 mg tablet 50 mg PO BID 90 Days Qty: 180 0RF losartan 25 mg tablet 25 mg PO DAILY 90 Days Qty: 90 0RF atorvastatin 40 mg tablet 40 mg PO DAILY 90 Days Qty: 90 0RF multivitamin Tablet 1 tab PO QAM 90 Days Qty: 90 2RF cholecalciferol (vitamin D3) 25 mcg (1,000 unit) tablet 25 mcg PO DAILY 90 Days Qty: 90 1RF acetaminophen [Tylenol] 325 mg capsule 325 mg PO ONCE PRN (Reason: pain) 90 Days Qty: 90 3RF allopurinol 100 mg tablet 100 mg PO DAILY 90 Days Qty: 90 3RF mupirocin 2 % ointment 1 appl topical BID Qty: 15 0RF (DME) Velcro back belt Large See Rx Instructions .Route .MEDSUPPLY Qty: 1 0RF Rx Instructions: As directed prednisone 20 mg tablet 20 mg PO DAILY 5 Days Qty: 5 0RF Print Language: Tamazight
[2023-08-07 07:16] LABS: Appearance Urine Clear; Color Urine Yellow; Glucose Urine UA Negative (Negative); Leukocyte Esterase Urine Negative (Negative); Nitrite Urine Negative (Negative); Specific Gravity - Urine 1.015 (1.005-1.025); Urine Blood Negative (Negative); Urine Ketones Negative (Negative); Urine Protein Negative (Neg-Trace)
[2023-08-07] MEDS: Ibuprofen 400 MG TABLET PO (07:18)
[2023-08-07 10:32] VITALS: BP 151/76; PULSE 96; RESP 18; TEMP 37.3; O2SAT 98
== END 2023-08-07 10:33 | disposition home or self-care (01) ==
PROVIDERS: Emergency Provider Emergency Medicine Emergency Medical Services; PCP Internal Medicine
DX: J06.9 Acute upper respiratory infection, unspecified (principal); I10 Essential (primary) hypertension; Z88.2 Allergy status to sulfonamides
CPT/HCPCS: 0241U; 71046; 81003; 99283; 99284

== ENCOUNTER 2023-08-12 14:47 | Outpatient (AMB) | payer OTHER, SELFPAY ==
[2023-08-12 14:50] VITALS: BP 110/60; PULSE 66; O2SAT 99; BMI 28.0
--- NOTE | 2023-08-12 14:50 | MHC.PC.OV ---
Vital Signs 08/12/23 14:50 Height 5 ft 10 in Weight 195 lb BMI 28.0 BP 110/60 Blood Pressure Location Rt brachial Position Sitting Pulse 66 Pulse Source Pulse Oximeter Pulse Oximetry (%) 99 Oxygen Delivery Method Room Air Intake Visit Reasons: 8 month f/u Allergies Sulfa (Sulfonamide Antibiotics) [SULFA (SULFONAMIDE ANTIBIOTICS)] Allergy (Severe, Verified 08/12/23 14:51) ANAPHYLAXIS Medication List - Last Reconciled 08/12/23 by Kaitlyn Bowman MD acetaminophen (Tylenol) 325 mg PO ONCE PRN 90 days allopurinol 100 mg PO DAILY 90 days atenolol 50 mg PO BID 90 days atorvastatin 40 mg PO DAILY 90 days benzonatate 200 mg (2 x 100 mg) PO TID PRN cholecalciferol (vitamin D3) 25 mcg PO DAILY 90 days losartan 25 mg PO DAILY 90 days multivitamin 1 tab PO QAM 90 days [Velcro back belt As directed] Tobacco use date assessed: 08/12/23 Fall risk assessment: No Falls in past year Last assessed Fall Risk: 08/12/23 Dental Screening Dental Screen Date: 08/12/23 Did you have a dental visit in the last 12 months?: No Was dental information given to patient?: Patient has dentist HPI 8 month f/u HPI Details Patient is a 78-year-old gentleman came in today for his regular follow-up visit Gout is stable patient is taking allopurinol Hypertension: Patient is on atenolol 50 mg b.i.d. and losartan 25 mg, tolerating medication blood pressure is stable. Lipid control with atorvastatin 40 mg Peripheral neuropathy stable, patient has seen Dr. Mills neurology wants however patient says that he feels his symptoms are getting worse and would like to have another referral He had cataract surgery on his left eye already and right eye is due He will contact eye and lasik surgery for appointment, he said that they were waiting for insurance approval and he has finally gotten the letter. Continue vitamin-D [facility] Medical History Hyperlipidemia Hypertension Surgical History Hx of esophagogastroduodenoscopy Hx of colonoscopy H/O hemorrhoidectomy Social History Household Members: Spouse Housing: Apartment Are you a primary health care administrator to a significant other at home: No Do you presently have visiting nurse or other home services: No Alcohol intake: never Patient Tobacco Use Status: Never used Tobacco e-Cigarette/Vaping Use: Never Used service: No Current occupational status: unemployed Cognitive needs: No Hearing needs: No Vision needs: No Questionnaire PHQ-9 Over the last 2 weeks, how often have you been bothered by any of the following problems? 1. Little interest or pleasure in doing things: not at all 2. Feeling down, depressed, or hopeless: not at all 3. Trouble falling or staying asleep, or sleeping too much: not at all 4. Feeling tired or having little energy: not at all 5. Poor appetite or overeating: not at all 6. Feeling bad about yourself - or that you are a failure or have let yourself or your family down: not at all 7. Trouble concentrating on things, such as reading the newspaper or watching television: not at all 8. Moving or speaking so slowly that other people could have noticed. Or the opposite - being so fidgety or restless that you have been moving around a lot more than usual: not at all 9. Thoughts that you would be better off or of hurting yourself in some way: not at all Total score: 0 Depression Screening Interpretation: Negative Depression Screening Done: Yes 86429 - PHQ-9 Billing: Yes Source: Developed by Drs. Solomon Talamantes, Margarita Em, Rudi Vinson and colleagues, with an educational katie from [employer]. Thrive Questionnaire Date Thrive assessed: 12/03/22 EUGENE-7 AMB Questionnaire EUGENE-7 Date EUGENE - 7 assessed: 12/03/22 Source: Developed by Drs. Solomon Talamantes, Margarita Em, Rudi Vinson and colleagues, with an educational katie from [employer]. Review of Systems Const Denies chills and Denies fever(s) ENT Denies epistaxis and Denies nasal discharge Card Denies chest pain Resp Denies chest congestion, Denies cough and Denies hemoptysis GI Denies diarrhea and Denies nausea Skin/Breast Denies rash Neuro Reports no additional complaints Psych Reports no additional complaints Endo Reports no additional complaints Physical exam (Primary Care) Vital Signs: Last Vital Signs Pulse 66 08/12/23 14:50 BP 110/60 08/12/23 14:50 Pulse Ox 99 08/12/23 14:50 Oxygen Delivery Method Room Air 08/12/23 14:50 BMI result Body Mass Index 28.0 Tobacco/Smoking Status: Tobacco use Status Tobacco use date assessed 08/12/23 08/12/23 14:56 Patient Tobacco Use Status Never used Tobacco 08/12/23 14:56 e-Cigarette/Vaping Use Never Used 08/12/23 14:56 Depression Screening Interpretation: Negative Thrive Assessment: Date of Thrive Assessment Date Thrive assessed 12/03/22 08/12/23 14:56 Const General: cooperative, comfortable and no acute distress Orientation/consciousness: patient oriented x3 HENMT Head: Yes normocephalic Eyes General: appearance normal, both eyes and all related structures Neck Neck: Yes supple Resp Effort & Inspection: normal respiratory effort, no cough and no stridor Cardio Rhythm: regular rhythm Heart sounds: S1 normal heart sound present and S2 normal heart sound present Skin General skin exam: turgor normal Neuro General: patient oriented x3, tone normal and moves all extremities Extrem Right lower extremity: no edema Left lower extremity: no edema Assessment and Plan Assessment & Plan (1) Paresthesia of both feet: Code(s): R20.2 - Paresthesia of skin (2) Hypertension, essential: Code(s): I10 - Essential (primary) hypertension (3) Lipid disorder: Code(s): E78.9 - Disorder of lipoprotein metabolism, unspecified (4) Anemia: Code(s): D64.9 - Anemia, unspecified Qualifiers: Anemia type: other cause Other causes of anemia: chronic disease, other Qualified Code(s): D63.8 - Anemia in other chronic diseases classified elsewhere (5) Peripheral neuropathy: Code(s): G62.9 - Polyneuropathy, unspecified Qualifiers: Peripheral neuropathy type: idiopathic neuropathy, unspecified Qualified Code(s): G60.9 - Hereditary and idiopathic neuropathy, unspecified (6) Elevated serum creatinine: Code(s): R79.89 - Other specified abnormal findings of blood chemistry (7) Gouty arthritis of right hand: Code(s): M10.9 - Gout, unspecified (8) Vitamin D deficiency: Code(s): E55.9 - Vitamin D deficiency, unspecified Plan Patient is a 78-year-old gentleman came in today for his regular follow-up visit Gout is stable patient is taking allopurinol Hypertension: Patient is on atenolol 50 mg b.i.d. and losartan 25 mg, tolerating medication blood pressure is stable. Lipid control with atorvastatin 40 mg Peripheral neuropathy stable, patient has seen Dr. Mills neurology wants however patient says that he feels his symptoms are getting worse and would like to have another referral He had cataract surgery on his left eye already and right eye is due He will contact eye and lasik surgery for appointment, he said that they were waiting for insurance approval and he has finally gotten the letter. Continue vitamin-D He is slightly anemic but it stable patient had labs earlier this year reviewed again Follow-up 4 months Orders: Referrals Neurology Referral R20.2 - Paresthesia of skin Medications: Discontinued benzonatate Discontinued Reason: Doctor's Order 200 mg (2 x 100 mg) PO TID PRN 14 caps 0RF cough Coding Level of Care Code Est Pt Level 4 (82391) Diagnoses Paresthesia of both feet R20.2 Hypertension, essential I10 Lipid disorder E78.9 Anemia in other chronic diseases classified elsewhere D63.8 Anemia type: other cause Other causes of anemia: chronic disease, other Idiopathic peripheral neuropathy G60.9 Peripheral neuropathy type: idiopathic neuropathy, unspecified Elevated serum creatinine R79.89 Gouty arthritis of right hand M10.9 Vitamin D deficiency E55.9
== END 2023-08-12 16:40 | disposition home or self-care (01) ==
PROVIDERS: PCP Internal Medicine; Visit Provider Internal Medicine
DX: R20.2 Paresthesia of skin (principal); I10 Essential (primary) hypertension; E78.9 Disorder of lipoprotein metabolism, unspecified; D63.8 Anemia in other chronic diseases classified elsewhere; G60.9 Hereditary and idiopathic neuropathy, unspecified; R79.89 Other specified abnormal findings of blood chemistry; M10.9 Gout, unspecified; E55.9 Vitamin D deficiency, unspecified
CPT/HCPCS: 99214

== ENCOUNTER 2023-11-12 13:12 | Outpatient (AMB) | payer OTHER, SELFPAY ==
--- NOTE | 2023-11-12 13:16 | MHC.OFFVIS ---
Vital Signs 11/12/23 13:18 Height 5 ft 10 in Weight 196 lb 3.382 oz BMI 28.2 BP 142/87 H Blood Pressure Location Lt brachial Position Sitting Pulse 67 Intake Visit Reasons: pre colonoscopy screening Intake Note: Deanna presents in the office as a pre colonoscopy screening CC: He states that he is not having any concerns at this time. He states that he is concerned with his weight. Allergies Sulfa (Sulfonamide Antibiotics) [SULFA (SULFONAMIDE ANTIBIOTICS)] Allergy (Severe, Verified 08/12/23 14:51) ANAPHYLAXIS Medication List - Last Reconciled 11/12/23 by Turner Torres MD acetaminophen (Tylenol) 325 mg PO ONCE PRN 90 days allopurinol 100 mg PO DAILY 90 days atenolol 50 mg PO BID 90 days atorvastatin 40 mg PO DAILY 90 days cholecalciferol (vitamin D3) 25 mcg PO DAILY 90 days losartan 25 mg PO DAILY 90 days multivitamin 1 tab PO QAM 90 days [Velcro back belt As directed] HPI HPI pre colonoscopy screening: Details: GI Clinic visit for this 78 year Yi speaking Mauritian [place] male YM for FU of H pylori infection. IMAGING STUDIES:? 10/[address] SCAN SHOWED: Stone in rt UVJ with moderate rt hydronephrosis. Large exophytic cyst seen posterior to the right kidney. Multiple hepatic cysts ENDOSCOPIC STUDIES: 07/30/20 EGD AND COLONOSCOPY SHOWED: Endoscopy Findings: STOMACH: Mild antral gastritis DUODENUM: Normal - biopsied to check for celiac sprue Colonoscopy Findings:? Four small to medium sized polyps removed Moderate diverticulosis seen in the sigmoid colon Moderate hemorrhoids on retroflexed exam. Plan:? Patient has an appointment on 08/16/20 in the GI Clinic with Turner Torres M.D. Repeat Colonoscopy interval based on path results - in 3-5 years if polyps are adenomatous and 10 years if polyps are hyperplastic. Above findings were reviewed with the patient and colon polyps and diverticulosis handouts were given in the discharge area BIOPSIES SHOWED: A.? Small bowel, biopsies:? Duodenal mucosa within normal limits; negative for active and chronic duodenitis, intraepithelial lymphocytosis, villous blunting, dysplasia, and carcinoma. B.? Gastric, antrum, biopsies:? Antral and corpus mucosa with moderate chronic active gastritis and numerous Helicobacter pylori; negative for intestinal metaplasia, dysplasia, and carcinoma. C.? Colon, transverse, polypectomy:? Tubular adenoma; negative for high grade dysplasia and carcinoma. D.? Colon, descending, polypectomies:? Tubular adenoma (x 1); negative for high grade dysplasia and carcinoma.? Hyperplastic polyp (x 1). E.? Colon, sigmoid, polypectomy:? Fragments of vegetable matter/food particles.? Colonic mucosa is not identified.? TODAY'S VISIT: Here to schedule a colonoscopy for FU of colon polyps. Denies abd pain, change in BM or rectal bleeding. PAST VISITS: Finished antibiotic treatment for H pylori without side effects Occasional gas problems Intermittent pain behind left shoulder at night. Had surgery for subdural hematoma in 01/2021 at [facility] Hospitalized for 3 days. EGD and Colonoscopy results reviewed with the patient. Doing OK and denies any problems after EGD and Colonoscopy Patient denies symptoms of heartburn, dysphagia, nausea, vomiting, change in appetite or weight. Denies recent change in bowel habits, constipation, diarrhea, black stools or rectal bleeding. Patient denies major cardiac or pulmonary problems, loud snoring or sleep apnea Denies problems with anesthesia in the past. Denies being on chronic anticoagulation. Had surgery for bleeding hemorrhoids in 1954 in [place] and denies any problems since then. Patient denies having an upper endoscopy or colonoscopy in the past. He denies known family history of colon polyps, colon cancer or other GI malignancies. Pt worked for the [employer] and is retired. Moved to the [place] 5 yrs ago with his since two of his daughters live here. PAST GI HISTORY BY REVIEW OF MEDICAL RECORDS: 06/12/20 patient was seen by Dr. Bowman: Hypertension:? Patient is taking atenolol 50 mg once a day his blood pressure is 160/88. Patient has a blood pressure monitor at home however not monitoring his blood pressure last time he has seen his previous PCP was 2 months ago however does not know what his blood pressure was at that time.? I am increasing his atenolol to 50 mg b.i.d., patient was instructed to start monitoring his blood pressure and keep a log and bring it along next time. Lipid disorder:? Continue atorvastatin 40 mg once a day due for labs, patient was instructed to do it fasting. Never had colonoscopy done referral placed. History of gout, stable at this time I have added uric acid level [facility] Medical History (Updated 11/12/23 @ 13:29 by Turner Torres MD) Hyperlipidemia Hypertension Surgical History (Updated 11/12/23 @ 13:19 by CLAUDIO Rodrigues) History of surgery of head Hx of esophagogastroduodenoscopy Hx of colonoscopy H/O hemorrhoidectomy Social History Household Members: Spouse Housing: Apartment Are you a primary senior care specialist to a significant other at home: No Do you presently have visiting nurse or other home services: No Alcohol intake: never Patient Tobacco Use Status: Never used Tobacco e-Cigarette/Vaping Use: Never Used service: No Current occupational status: unemployed Cognitive needs: No Hearing needs: No Vision needs: No Review of Systems Const All systems reviewed & are unremarkable except as noted in HPI and below Physical Exam Vital Signs: Last Vital Signs Pulse 67 11/12/23 13:18 BP 142/87 H 11/12/23 13:18 BMI result Body Mass Index 28.2 Const General: healthy appearing and no acute distress Nutritional Appearance: overweight Orientation/consciousness: patient oriented x3 Limitations: language barrier HEENT Head: Yes normal to inspection Ears: hearing grossly normal bilaterally Eyes Sclerae: sclerae normal Pupils: Equal, round and reactive pupils present Neck Neck: Yes normal visual inspection Chest Chest palpation & inspection: normal inspection of the chest Resp Effort & Inspection: normal respiratory effort Auscultation: clear to auscultation bilaterally Cardio Palpation: normal PMI Rate: regular rate Rhythm: regular rhythm Heart sounds: S1 normal heart sound present, S2 normal heart sound present and no murmurs GI Palpation (GI): Soft to palpation, nontender and No hepatosplenomegaly present Auscultation: normal bowel sounds Rectal Exam - Male: Yes deferred Skin General skin exam: no rashes or lesions noted Neuro General: patient oriented x3, gait normal and moves all extremities Cranial nerves: Yes Equal, round and reactive pupils present Psych Appearance: grossly normal Mental Status: mental status grossly normal Assessment & Plan Assessment & Plan (1) History of colon polyps: Comment: 07/2020 colonoscopy showed diverticulosis and hemorrhoids. Three small to medium-sized adenomatous polyps were removed. Repeat colonoscopy is advised in 3 years (due 07/2023) Code(s): Z86.010 - Personal history of colonic polyps Category: Medical (2) Vitamin D deficiency: Code(s): E55.9 - Vitamin D deficiency, unspecified Category: Medical Plan 78 year old Yi speaking Mauritian [place] male referred to GI for colon cancer screening. Patient denied any upper or lower GI symptoms. No known family history of GI malignancy.? Labs revealed mild normocytic normochromic anemia with normal vitamin B12 level. 07/2020 EGD showed gastritis and gastric biopsies were positive for Helicobacter pylori. Three adenomatous polyps were removed during same-day colonoscopy - repeat colonoscopy advised in 3 years Patient was prescribed triple therapy for H pylori gastritis and FU stool test for H pylori antigen was negative. 11/12/23 Here to schedule a colonoscopy for FU of colon polyps. FU in 6 months Medications: New bisacodyl (Dulcolax (bisacodyl)) Take 4 tablets at 12 pm the day before colonoscopy appointment 20 mg (4 x 5 mg) PO ONCE 1 day 4 tabs 0RF colon prep polyethylene glycol 3350 (Miralax) Mix Miralax with 64 oz(8 cups) of Crystal light. Take 2 tablets of Dulcolax qt 12 pm. Wait to have your 1st bowel movement, then begin drinking Miralax. Drink a glass of Miralax every 10-15 minutes until you are finished. You will drink at least another 4 cups of clear liquid of your choice over the next 2 hours. Please drink as many clear liquids as possible You may have clear liquids up to four hours before your procedure 17 grams PO DAILY 1 day 238 grams 0RF Refilled multivitamin 1 tab PO QAM 90 days 90 tabs 2RF D64.9 - Anemia, unspecified cholecalciferol (vitamin D3) 25 mcg PO DAILY 90 days 90 tabs 1RF Coding Level of Care Code Est Pt Level 4 (78410) Diagnoses History of colon polyps Z86.010 Vitamin D deficiency E55.9 Time Spent (min) 25
[2023-11-12 13:18] VITALS: BP 142/87; PULSE 67; BMI 28.2
== END 2023-11-12 14:19 | disposition home or self-care (01) ==
PROVIDERS: PCP Internal Medicine; Visit Provider Internal Medicine Gastroenterology
DX: Z01.818 Encounter for other preprocedural examination (principal); Z12.11 Encounter for screening for malignant neoplasm of colon; Z86.010 Personal history of colon polyps; E55.9 Vitamin D deficiency, unspecified
CPT/HCPCS: 99024

== ENCOUNTER → 2023-11-12 13:12 | Outpatient (BNVA) | payer OTHER, SELFPAY | PROVIDERS: PCP Internal Medicine; Visit Provider Internal Medicine Gastroenterology | DX: E55.9 Vitamin D deficiency, unspecified (principal); Z86.010 Personal history of colon polyps | CPT/HCPCS: 99212 ==

== ENCOUNTER 2024-01-06 12:41 | Outpatient (AMB) | payer OTHER, SELFPAY ==
[2024-01-06 12:48] VITALS: BP 142/80; PULSE 72; O2SAT 98; BMI 28.0
--- NOTE | 2024-01-06 12:48 | A.OFFPC_ITS ---
Vital Signs 3 01/06/24 12:48 Height 5 ft 10 in Weight 195 lb BMI 28.0 BP 142/80 H Blood Pressure Location Rt brachial Position Sitting Pulse 72 Pulse Source Pulse Oximeter Pulse Oximetry (%) 98 Intake Visit Reasons: Follow Up~ Allergies Sulfa (Sulfonamide Antibiotics) [SULFA (SULFONAMIDE ANTIBIOTICS)] Allergy (Severe, Verified 01/06/24 12:51) ANAPHYLAXIS Medication List - Last Reconciled 01/06/24 by Kaitlyn Bowman MD acetaminophen (Tylenol) 325 mg PO ONCE PRN 90 days allopurinol 100 mg PO DAILY 90 days atenolol 50 mg PO BID 90 days atorvastatin 40 mg PO DAILY 90 days bisacodyl (Dulcolax (bisacodyl)) 20 mg (4 x 5 mg) PO ONCE 1 day cholecalciferol (vitamin D3) 25 mcg PO DAILY 90 days losartan 25 mg PO DAILY 90 days multivitamin 1 tab PO QAM 90 days polyethylene glycol 3350 (Miralax) 17 grams PO DAILY 1 day [Velcro back belt As directed] Tobacco use date assessed: 08/12/23 Fall risk assessment: 1 Fall in past year Last assessed Fall Risk: 01/06/24 Dental Screening Dental Screen Date: 08/12/23 HPI Follow Up~ 2 HPI0 Details Patient is a 78-year-old gentleman came in today for his regular follow-up visit Patient accidentally hit his right leg 1 and half month ago, initially he tells me that it was swollen and painful but now swelling is getting better and pain is also getting better However would like to have an x-ray done. Injury was medial aspect of right lower leg where he still have some discoloration and a bump but no pain with palpation Gout is stable patient is taking allopurinol Hypertension: Patient is on atenolol 50 mg b.i.d. and losartan 25 mg, tolerating medication blood pressure is still elevated I am increasing losartan to b.i.d.. Lipid control with atorvastatin 40 mg Peripheral neuropathy stable, patient has seen Dr. Mills neurology Continue vitamin-D He is slightly anemic but it stable patient had labs earlier this year reviewed again Due for labs to be done today Follow-up 3 months [facility] Medical History Hyperlipidemia Hypertension Surgical History History of surgery of head Hx of esophagogastroduodenoscopy Hx of colonoscopy H/O hemorrhoidectomy Social History Household Members: Spouse Housing: Apartment Are you a primary managed care liaison to a significant other at home: No Do you presently have visiting nurse or other home services: No Alcohol intake: never Patient Tobacco Use Status: Never used Tobacco e-Cigarette/Vaping Use: Never Used service: No Current occupational status: unemployed Cognitive needs: No Hearing needs: No Vision needs: No Questionnaire PHQ-9 Over the last 2 weeks, how often have you been bothered by any of the following problems? 1. Little interest or pleasure in doing things: not at all 2. Feeling down, depressed, or hopeless: not at all 3. Trouble falling or staying asleep, or sleeping too much: not at all 4. Feeling tired or having little energy: not at all 5. Poor appetite or overeating: not at all 6. Feeling bad about yourself - or that you are a failure or have let yourself or your family down: not at all 7. Trouble concentrating on things, such as reading the newspaper or watching television: not at all 8. Moving or speaking so slowly that other people could have noticed. Or the opposite - being so fidgety or restless that you have been moving around a lot more than usual: not at all 9. Thoughts that you would be better off or of hurting yourself in some way: not at all Total score: 0 Depression Screening Interpretation: Negative Depression Screening Done: Yes 12534 - PHQ-9 Billing: Yes Source: Developed by Drs. Solomon Talamantes, Margarita Em, Rudi Vinson and colleagues, with an educational katie from [employer]. Thrive Questionnaire Date Thrive assessed: 01/06/24 I am a: Patient What is your living situation today?: I have a steady place to live Within the past 12 months, did the food you bought not last and you didn't have the money to get more?: Never true Within the past 12 months, did you worry whether your food would run out before you got money to buy more?: Never true Do you have trouble paying for medicines?: No Do you have trouble getting transportation to medical appointments?: No Do you have trouble paying your heating and electricity bill?: Yes Do you have trouble taking care of your child, family member or friend?: Yes Do you have trouble with day-to-day activities such as bathing, preparing meals, shopping, managing finances, etc.?: Yes Are you currently unemployed and looking for a job?: Yes Are you interested in more education?: Yes Please select the resources that you would like help with: Transportation and Job search/training Currently or been in a relationship where the following occur: No concerns reported THRIVE Score: 1 AUDIT C Alcohol Use Questionnaire (AUDIT-C) 1. How often do you have a drink containing alcohol?: Never 3. How often do you have six or more drinks on one occasion?: Never Total Score: 0 Score Reviewed/Action Taken: Yes EUGENE-7 AMB Questionnaire EUGENE-7 Date EUGENE - 7 assessed: 01/06/24 Feeling nervous, anxious, or on edge: 3 = Nearly every day Not being able to stop or control worryin = Not at all Worrying too much about different things: 0 = Not at all Trouble relaxin = Not at all Being so restless that it is hard to sit still: 0 = Not at all Becoming easily annoyed or irritable: 0 = Not at all Feeling afraid as if something awful might happen: 0 = Not at all Total EUGENE-7 score (0-4 normal; 5-9 mild; 10-14 moderate; 15-21 severe): 3 Source: Developed by Drs. Solomon Talamantes, Margarita Em, Rudi Vinson and colleagues, with an educational katie from [employer]. EUGENE-7 Assessment Billing EUGENE-7 Assessment Tool: EUGENE-7 Assessment 22638 Review of Systems Const Denies chills and Denies fever(s) ENT Denies epistaxis and Denies nasal discharge Card Denies chest pain Resp Denies chest congestion, Denies cough and Denies hemoptysis GI Denies diarrhea and Denies nausea Skin/Breast Denies rash Neuro Reports no additional complaints Psych Reports no additional complaints Endo Reports no additional complaints Physical exam (Primary Care) Vital Signs: Last Vital Signs Pulse 72 01/06/24 12:48 BP 142/80 H 01/06/24 12:48 Pulse Ox 98 01/06/24 12:48 BMI result Body Mass Index 28.0 Tobacco/Smoking Status: Tobacco use Status Tobacco use date assessed 08/12/23 01/06/24 12:54 Patient Tobacco Use Status Never used Tobacco 01/06/24 12:54 e-Cigarette/Vaping Use Never Used 01/06/24 12:54 PHQ-9: PHQ-9 Score PHQ-9: Total score 0 01/06/24 13:06 Depression Screening Interpretation: Negative Thrive Assessment: Date of Thrive Assessment Date Thrive assessed 01/06/24 01/06/24 12:54 Currently or been in a relationship where the following occur: No concerns reported Const General: cooperative, comfortable and no acute distress Orientation/consciousness: patient oriented x3 HENMT Head: Yes normocephalic Eyes General: appearance normal, both eyes and all related structures Neck Neck: Yes supple Resp Effort & Inspection: normal respiratory effort, no cough and no stridor Cardio Rhythm: regular rhythm Heart sounds: S1 normal heart sound present and S2 normal heart sound present Skin General skin exam: turgor normal Neuro General: patient oriented x3, tone normal and moves all extremities Extrem Right lower extremity: no edema Left lower extremity: no edema Ankle/foot/toe images: 2 1. Slight discoloration and small bump without any pain Assessment and Plan Assessment & Plan (1) Injury of lower leg, right: Code(s): S89.91XA - Unspecified injury of right lower leg, initial encounter Qualifiers: Encounter type: initial encounter Qualified Code(s): S89.91XA - Unspecified injury of right lower leg, initial encounter (2) Hypertension, essential: Code(s): I10 - Essential (primary) hypertension (3) Lipid disorder: Code(s): E78.9 - Disorder of lipoprotein metabolism, unspecified (4) Gouty arthritis: Code(s): M10.9 - Gout, unspecified (5) Paresthesia of both feet: Code(s): R20.2 - Paresthesia of skin (6) Anemia: Code(s): D64.9 - Anemia, unspecified Qualifiers: Anemia type: other cause Other causes of anemia: chronic disease, other Qualified Code(s): D63.8 - Anemia in other chronic diseases classified elsewhere (7) Peripheral neuropathy: Code(s): G62.9 - Polyneuropathy, unspecified Qualifiers: Peripheral neuropathy type: idiopathic neuropathy, unspecified Q ualified Code(s): G60.9 - Hereditary and idiopathic neuropathy, unspecified (8) Elevated serum creatinine: Code(s): R79.89 - Other specified abnormal findings of blood chemistry (9) Gouty arthritis of right hand: Code(s): M10.9 - Gout, unspecified (10) Vitamin D deficiency: Code(s): E55.9 - Vitamin D deficiency, unspecified Plan Patient is a 78-year-old gentleman came in today for his regular follow-up visit Patient accidentally hit his right leg 1 and half month ago, initially he tells me that it was swollen and painful but now swelling is getting better and pain is also getting better However would like to have an x-ray done. Injury was medial aspect of right lower leg where he still have some discoloration and a bump but no pain with palpation Gout is stable patient is taking allopurinol Hypertension: Patient is on atenolol 50 mg b.i.d. and losartan 25 mg, tolerating medication blood pressure is still elevated I am increasing losartan to b.i.d.. Lipid control with atorvastatin 40 mg Peripheral neuropathy stable, patient has seen Dr. Mills neurology Continue vitamin-D He is slightly anemic but it stable patient had labs earlier this year reviewed again Due for labs to be done today Follow-up 3 months Orders: Orders 2 Complete Blood Count Auto Diff Today E78.9 - Disorder of lipoprotein metabolism, unspecified, I10 - Essential (primary) hypertension, M10.9 - Gout, unspecified Comprehensive Met. Panel Today E78.9 - Disorder of lipoprotein metabolism, unspecified, I10 - Essential (primary) hypertension, M10.9 - Gout, unspecified XR tibia fibula RT 2V Today S89.91XA - Unspecified injury of right lower leg, initial encounter Medications: Changed 2 From losartan 25 mg PO DAILY 90 days 90 tabs 1RF To losartan 25 mg PO BID 90 days 180 tabs 1RF Coding Level of Care Code Est Pt Level 4 (08519) Complex EM visit Add On G2211 Diagnoses Injury of right lower leg, initial encounter S89.91XA Encounter type: initial encounter Hypertension, essential I10 Lipid disorder E78.9 Gouty arthritis M10.9 Paresthesia of both feet R20.2 Anemia in other chronic diseases classified elsewhere D63.8 Anemia type: other cause Other causes of anemia: chronic disease, other Idiopathic peripheral neuropathy G60.9 Peripheral neuropathy type: idiopathic neuropathy, unspecified Elevated serum creatinine R79.89 Gouty arthritis of right hand M10.9 Vitamin D deficiency E55.9 Additional Codes EUGENE-7 Assessment Billing - EUGENE-7 Assessment Tool: EUGENE-7 Assessment 77117 ([id number])
== END 2024-01-06 13:48 | disposition home or self-care (01) ==
PROVIDERS: PCP Internal Medicine; Visit Provider Internal Medicine
DX: I10 Essential (primary) hypertension (principal); S89.91XA Unspecified injury of right lower leg, initial encounter; E78.9 Disorder of lipoprotein metabolism, unspecified; M10.9 Gout, unspecified; R20.2 Paresthesia of skin; D63.8 Anemia in other chronic diseases classified elsewhere; G60.9 Hereditary and idiopathic neuropathy, unspecified; E55.9 Vitamin D deficiency, unspecified
CPT/HCPCS: 99214; G2211

== ENCOUNTER 2024-01-06 13:06 | Outpatient (REF) | payer OTHER, SELFPAY ==
--- NOTE | ~2024-01-06 | XR_ITS ---
EXAMINATION: XR TIBIA AND FIBULA, RIGHT CLINICAL INFORMATION: Injury of the right lower leg. COMPARISON: None available. TECHNIQUE: AP and lateral views of the right tibia and fibula were obtained. FINDINGS: Mild soft tissue swelling in the right lower leg. Moderate-sized enthesopathic spurs are present at the Achilles tendon insertion and plantar fascial origin on the calcaneus. No fracture. No osseous lesions. XR/XR tibia fibula RT 2V IMPRESSION: Mild soft tissue swelling in the right lower leg. No acute osseous findings. Electronically signed by: Anirudh Brown MD 01/19/2024 11:47 PM EDT
[2024-01-06 15:57] LABS: MANUAL DIFF FLAG NO
[2024-01-06 16:04] LABS: Basophils Absolute Auto 0.1 X10*3/uL (0.0-0.2); Basophils Percent Auto 1.2 % (0-2); Eosinophils Percent Auto 0.5 % (0-4); Hematocrit 37.3 % (42.0-52.0); Hemoglobin 12.8 g/dl (14.0-18.0); Imm Gran Abs Auto 0.03 X10*3/uL (0.00-0.03); Imm Gran Pct Auto 0.5 % (0.0-0.4); Lymphocytes Absolute Auto 1.9 X10*3/uL (1.2-4.9); Lymphocytes Percent Auto 32.9 % (20-40); Mean Corpuscular HGB Conc 34.3 g/dl (31.0-36.0); Mean Corpuscular Hemoglobin 30.5 pg (27.0-33.0); Monocytes Absolute Auto 0.5 X10*3/uL (0.1-1.2); Monocytes Percent Auto 8.2 % (2-11); Neutrophils Absolute Auto 3.3 x10*3/uL (2.0-8.3); Neutrophils Percent Auto 56.7 % (45-73); Platelet Count 210 X10*3/uL (160-400); Red Blood Count 4.19 X10*6/uL (4.60-5.80); Red Cell Distribution Width 12.5 % (11.0-16.0); White Blood Count 5.8 X10*3/uL (4.8-10.8)
[2024-01-06 16:22] LABS: Alanine Aminotransferase 24 U/L (0-40); Alkaline Phosphatase 106 U/L (39-117); Anion Gap 8 (12-20); Aspartate Amino Transferase 17 U/L (5-37); Bilirubin Total 0.4 mg/dL (0.0-1.0); Blood Urea Nitrogen 16 mg/dL (9-16); Calcium 9.5 mg/dL (8.4-10.2); Carbon Dioxide 29 mmol/L (22-29); Chloride 109 mmol/L (96-108); Estimated Glomerular Filt Rate 58; Glucose Random 125 mg/dL (60-115); Potassium 4.4 mmol/L (3.3-5.1); Sodium 142 mmol/L (135-145); Total Protein 6.9 g/dL (6.5-8.0)
== END 2024-01-06 13:07 | disposition home or self-care (01) ==
LOC: HO.HMGCX 13:06
PROVIDERS: PCP Internal Medicine; Visit Provider Internal Medicine
DX: S89.91XA Unspecified injury of right lower leg, initial encounter (principal); I10 Essential (primary) hypertension; E78.9 Disorder of lipoprotein metabolism, unspecified; M10.9 Gout, unspecified
CPT/HCPCS: 36415; 73590; 80053; 85025

== ENCOUNTER 2024-02-01 09:54 | Outpatient (AMB) | payer OTHER, SELFPAY ==
--- NOTE | 2024-02-01 09:59 | AM.OFFWIN_ITS ---
Intake Vital Signs 02/01/24 10:01 02/01/24 10:45 Height 5 ft 10 in Weight 192 lb BMI 27.5 BP 140/100 H 160/86 H Blood Pressure Location Rt brachial Rt brachial Position Sitting Sitting Pulse 72 Pulse Source Pulse Oximeter Pulse Oximetry (%) 98 Oxygen Delivery Method Room Air Intake Visit Reasons: EP left side head pain Intake Note: Patient here for left sided head pain that has been present for about 1 week on and off, he states his eyes get slightly blurry when he gets the pain. Patient Tobacco Use Status: Never used Tobacco Allergies Sulfa (Sulfonamide Antibiotics) [SULFA (SULFONAMIDE ANTIBIOTICS)] Allergy (Severe, Verified 02/01/24 10:03) ANAPHYLAXIS Do you need a note to return to daycare/school/sports/work: No HPI HPI Comments History of Present Illness Details Patient is a 78-year-old male with a past medical history of hypertension complaining of an increase of headaches. He states he has been taking his hypertension medication, as prescribed. He does have a machine at home which he checks his blood pressure with and the last 2 readings on the machine are 174/83 and 161/82. He denies any changes in vision, nausea, vomiting, sensitivity to light or sound. Patient states he does take Tylenol for his headaches and generally they resolve but they do come back. He denies a ny changes in his diet or an increase in salt. [facility] Medical History Hyperlipidemia Hypertension Surgical History History of surgery of head Hx of esophagogastroduodenoscopy Hx of colonoscopy H/O hemorrhoidectomy Social History Household Members: Spouse Housing: Apartment Are you a primary healthcare administrative assistant to a significant other at home: No Do you presently have visiting nurse or other home services: No Alcohol intake: never Patient Tobacco Use Status: Never used Tobacco e-Cigarette/Vaping Use: Never Used service: No Current occupational status: unemployed Cognitive needs: No Hearing needs: No Vision needs: No Review of Systems Const All systems reviewed & are unremarkable except as noted in HPI and below Physical Exam Vital Signs: Last Vital Signs Pulse 72 02/01/24 10:01 BP 140/100 H 02/01/24 10:01 Pulse Ox 98 02/01/24 10:01 Oxygen Delivery Method Room Air 02/01/24 10:01 BMI result Body Mass Index 27.5 Const General: cooperative, healthy appearing, comfortable, no acute distress and well developed Orientation/consciousness: patient oriented x3 Limitations: no limitations HEENT Head: Yes normal to inspection Ears: hearing grossly normal bilaterally General nose exam: Normal external nose present Face and sinus: Yes normal facial exam Eyes General: appearance normal, both eyes and all related structures Neck Neck: Yes normal visual inspection and Yes full ROM Resp Effort & Inspection: normal respiratory effort and able to speak in complete sentences Skin General skin exam: no rashes or lesions noted Neuro General: patient oriented x3 Extrem General: Yes normal to inspection Assessment & Plan Assessment & Plan (1) Elevated blood pressure reading with diagnosis of hypertension: Code(s): I10 - Essential (primary) hypertension Plan: We compared the machine blood pressure with a manual blood pressure, the machine blood pressure was 187/84 and a few minutes later the manual blood pressure that I did was 160/86 so I do think there is some variance in the machine and it may not be accurate. Recommended patient get a new blood pressure machine and continue to monitor his blood pressures. I will message his primary care doctor so they can adjust his medications as needed and follow up. I did give patient red flag warning signs and when to go to the emergency department and educated him that elevated hypertension is a risk factor for a stroke. Plan see above Coding Level of Care Code Est Pt Level 4 (00903) Diagnoses Elevated blood pressure reading with diagnosis of hypertension I10
[2024-02-01 10:01] VITALS: BP 140/100; PULSE 72; O2SAT 98; BMI 27.5
[2024-02-01 10:45] VITALS: BP 160/86
== END 2024-02-01 12:42 | disposition home or self-care (01) ==
PROVIDERS: PCP Internal Medicine; Visit Provider Physician Assistant
DX: I10 Essential (primary) hypertension (principal)

== ENCOUNTER → 2024-02-01 09:54 | Outpatient (BNVA) | payer OTHER, SELFPAY | PROVIDERS: PCP Internal Medicine; Visit Provider Physician Assistant | DX: I10 Essential (primary) hypertension (principal) | CPT/HCPCS: 99212 ==

== ENCOUNTER 2024-02-02 13:11 | Outpatient (AMB) | payer OTHER, SELFPAY ==
[2024-02-02 13:13] VITALS: BP 138/78; PULSE 72; O2SAT 95; BMI 27.6
--- NOTE | 2024-02-02 13:13 | A.OFFPC_ITS ---
Vital Signs 02/02/24 13:13 Height 5 ft 10 in Weight 192 lb 8 oz BMI 27.6 BP 138/78 Blood Pressure Location Rt brachial Position Sitting Pulse 72 Pulse Source Pulse Oximeter Pulse Oximetry (%) 95 Oxygen Delivery Method Room Air Intake Visit Reasons: Walk In F/U Allergies Sulfa (Sulfonamide Antibiotics) [SULFA (SULFONAMIDE ANTIBIOTICS)] Allergy (Severe, Verified 02/02/24 13:14) ANAPHYLAXIS Medication List - Last Reconciled 02/02/24 by Kaitlyn Bowman MD acetaminophen (Tylenol) 325 mg PO ONCE PRN 90 days allopurinol 100 mg PO DAILY 90 days atenolol 50 mg PO BID 90 days atorvastatin 40 mg PO DAILY 90 days bisacodyl (Dulcolax (bisacodyl)) 20 mg (4 x 5 mg) PO ONCE 1 day cholecalciferol (vitamin D3) 25 mcg PO DAILY 90 days losartan 25 mg PO BID 90 days multivitamin 1 tab PO QAM 90 days polyethylene glycol 3350 (Miralax) 17 grams PO DAILY 1 day [Velcro back belt As directed] Tobacco use date assessed: 02/02/24 Fall risk assessment: No Falls in past year Last assessed Fall Risk: 02/02/24 Dental Screening Dental Screen Date: 02/02/24 Did you have a dental visit in the last 12 months?: Yes Did you have a dental problem in the last 6 months where you did not have access to dental care?: No Was dental information given to patient?: Patient has dentist HPI Walk In F/U HPI Details Patient was seen in walk-in clinic because of high blood pressure He is on atenolol 50 mg b.i.d. and losartan 25 mg b.i.d. Patient admit to missing medication when his blood pressure went high He is not taking it regularly blood pressure is stable He says that he feels irregularity in his heart off and on His heart rate is regular at this time Patient have a long history of hypertension I have ordered echocardiogram and EKG for him He has appointment scheduled for follow-up [facility] Medical History Hyperlipidemia Hypertension Surgical History History of surgery of head Hx of esophagogastroduodenoscopy Hx of colonoscopy H/O hemorrhoidectomy Social History Household Members: Spouse Housing: Apartment Are you a primary ostomy care nurse to a significant other at home: No Do you presently have visiting nurse or other home services: No Alcohol intake: never Patient Tobacco Use Status: Never used Tobacco e-Cigarette/Vaping Use: Never Used service: No Current occupational status: unemployed Cognitive needs: No Hearing needs: No Vision needs: No Questionnaire Thrive Questionnaire Date Thrive assessed: 01/06/24 EUGENE-7 AMB Questionnaire EUGENE-7 Date EUGENE - 7 assessed: 01/06/24 Source: Developed by Drs. Solomon Talamantes, Margarita Em, Rudi Vinson and colleagues, with an educational katie from [employer]. Review of Systems Const Denies chills and Denies fever(s) ENT Denies epistaxis and Denies nasal discharge Card Denies chest pain Resp Denies chest congestion, Denies cough and Denies hemoptysis GI Denies diarrhea and Denies nausea Skin/Breast Denies rash Neuro Reports no additional complaints Psych Reports no additional complaints Endo Reports no additional complaints Physical exam (Primary Care) Vital Signs: Last Vital Signs Pulse 72 02/02/24 13:13 BP 138/78 02/02/24 13:13 Pulse Ox 95 02/02/24 13:13 Oxygen Delivery Method Room Air 02/02/24 13:13 BMI result Body Mass Index 27.6 Tobacco/Smoking Status: Tobacco use Status Tobacco use date assessed 02/02/24 02/02/24 13:20 Patient Tobacco Use Status Never used Tobacco 02/02/24 13:20 e-Cigarette/Vaping Use Never Used 02/02/24 13:20 Thrive Assessment: Date of Thrive Assessment Date Thrive assessed 01/06/24 02/02/24 13:20 Const General: cooperative, comfortable and no acute distress Orientation/consciousness: patient oriented x3 HENMT Head: Yes normocephalic Eyes General: appearance normal, both eyes and all related structures Neck Neck: Yes supple Resp Effort & Inspection: normal respiratory effort, no cough and no stridor Cardio Rhythm: regular rhythm Heart sounds: S1 normal heart sound present and S2 normal heart sound present Skin General skin exam: turgor normal Neuro General: patient oriented x3, tone normal and moves all extremities Extrem Right lower extremity: no edema Left lower extremity: no edema Coding Level of Care Code Est Pt Level 4 (22126) Diagnoses Hypertension, essential I10 Palpitations R00.2 Dietary counseling Z71.3 Assessment & Plan Assessment & Plan (1) Hypertension, essential: Code(s): I10 - Essential (primary) hypertension Category: Medical (2) Palpitations: Code(s): R00.2 - Palpitations Category: Medical (3) Dietary counseling: Code(s): Z71.3 - Dietary counseling and surveillance Category: Medical Plan Patient was seen in walk-in clinic because of high blood pressure He is on atenolol 50 mg b.i.d. and losartan 25 mg b.i.d. Patient admit to missing medication when his blood pressure went high He is not taking it regularly blood pressure is stable He says that he feels irregularity in his heart off and on His heart rate is regular at this time Patient have a long history of hypertension I have ordered echocardiogram and EKG for him Meanwhile we talked about low-salt diet in detail I would recommend that he start logging his blood pressure as well and bring the log along at his visit in March He has appointment scheduled for follow-up Orders: Orders CA echo transthoracic complete Today I10 - Essential (primary) hypertension, R00.2 - Palpitations ECG 12 lead EKG Today I10 - Essential (primary) hypertension, R00.2 - Palpitations
== END 2024-02-02 14:11 | disposition home or self-care (01) ==
PROVIDERS: PCP Internal Medicine; Visit Provider Internal Medicine
DX: I10 Essential (primary) hypertension (principal); R00.2 Palpitations; Z71.3 Dietary counseling and surveillance

== ENCOUNTER → 2024-02-02 13:11 | Outpatient (BNVA) | payer OTHER, SELFPAY | PROVIDERS: PCP Internal Medicine; Visit Provider Internal Medicine | DX: I10 Essential (primary) hypertension (principal); R00.2 Palpitations; Z71.3 Dietary counseling and surveillance | CPT/HCPCS: 99212 ==

== ENCOUNTER → 2024-02-10 13:29 | Outpatient (BNVA) | payer OTHER, SELFPAY | PROVIDERS: PCP Internal Medicine; Visit Provider Internal Medicine ==

== ENCOUNTER → 2024-02-11 13:55 | Outpatient (BNVA) | payer OTHER, SELFPAY | PROVIDERS: PCP Internal Medicine ==

== ENCOUNTER → 2024-02-12 14:40 | Outpatient (BNVA) | payer OTHER, SELFPAY | PROVIDERS: PCP Internal Medicine ==

== ENCOUNTER → 2024-02-15 12:56 | Outpatient (BNVA) | payer OTHER, SELFPAY | PROVIDERS: PCP Internal Medicine; Visit Provider Internal Medicine ==

== ENCOUNTER → 2024-02-23 10:07 | Outpatient (BNVA) | payer OTHER, SELFPAY | PROVIDERS: PCP Internal Medicine; Visit Provider Internal Medicine | DX: I10 Essential (primary) hypertension (principal) | CPT/HCPCS: 99212 ==

== ENCOUNTER 2024-02-23 10:18 | Outpatient (AMB) | payer OTHER, SELFPAY ==
--- NOTE | 2024-02-23 10:19 | MHC.PC.OV ---
Vital Signs 02/23/24 10:20 BP 150/86 H Blood Pressure Location Rt brachial Position Sitting Intake Visit Reasons: Elevated BP Allergies Sulfa (Sulfonamide Antibiotics) [SULFA (SULFONAMIDE ANTIBIOTICS)] Allergy (Severe, Verified 02/02/24 13:14) ANAPHYLAXIS Medication List - Last Reconciled 02/23/24 by Kaitlyn Bowman MD acetaminophen (Tylenol) 325 mg PO ONCE PRN 90 days allopurinol 100 mg PO DAILY 90 days atenolol 50 mg PO BID 90 days atorvastatin 40 mg PO DAILY 90 days bisacodyl (Dulcolax (bisacodyl)) 20 mg (4 x 5 mg) PO ONCE 1 day cholecalciferol (vitamin D3) 25 mcg PO DAILY 90 days losartan 50 mg PO BID 90 days multivitamin 1 tab PO QAM 90 days polyethylene glycol 3350 (Miralax) 17 grams PO DAILY 1 day [Velcro back belt As directed] Tobacco use date assessed: 02/02/24 Dental Screening Dental Screen Date: 02/02/24 HPI Elevated BP HPI Details Patient is 78-year-old gentleman came in today to be evaluated for hypertension Patient's blood pressure has been running high He is currently taking atenolol 50 mg b.i.d. and losartan 50 mg b.i.d. I am adding amlodipine 5 mg Patient is to return next week for nursing visit to have blood pressure rechecked. [facility] Medical History Hyperlipidemia Hypertension Surgical History History of surgery of head Hx of esophagogastroduodenoscopy Hx of colonoscopy H/O hemorrhoidectomy Social History Household Members: Spouse Housing: Apartment Are you a primary healthcare receptionist to a significant other at home: No Do you presently have visiting nurse or other home services: No Alcohol intake: never Patient Tobacco Use Status: Never used Tobacco e-Cigarette/Vaping Use: Never Used service: No Current occupational status: unemployed Cognitive needs: No Hearing needs: No Vision needs: No Questionnaire Thrive Questionnaire Date Thrive assessed: 01/06/24 EUGENE-7 AMB Questionnaire EUGENE-7 Date EUGENE - 7 assessed: 01/06/24 Source: Developed by Drs. Solomon Talamantes, Margarita Em, Rudi Vinson and colleagues, with an educational katie from [employer]. Review of Systems Const Denies chills and Denies fever(s) ENT Denies epistaxis and Denies nasal discharge Card Denies chest pain Resp Denies chest congestion, Denies cough and Denies hemoptysis GI Denies diarrhea and Denies nausea Skin/Breast Denies rash Neuro Reports no additional complaints Psych Reports no additional complaints Endo Reports no additional complaints Physical exam (Primary Care) Vital Signs: Last Vital Signs BP 150/86 H 02/23/24 10:20 Tobacco/Smoking Status: Tobacco use Status Tobacco use date assessed 02/02/24 02/15/24 12:53 Patient Tobacco Use Status Never used Tobacco 02/15/24 12:53 e-Cigarette/Vaping Use Never Used 02/15/24 12:53 Thrive Assessment: Date of Thrive Assessment Date Thrive assessed 01/06/24 02/15/24 12:53 Const General: cooperative, comfortable and no acute distress Orientation/consciousness: patient oriented x3 HENMT Head: Yes normocephalic Eyes General: appearance normal, both eyes and all related structures Neck Neck: Yes supple Resp Effort & Inspection: normal respiratory effort, no cough and no stridor Cardio Rhythm: regular rhythm Heart sounds: S1 normal heart sound present and S2 normal heart sound present Skin General skin exam: turgor normal Neuro General: patient oriented x3, tone normal and moves all extremities Extrem Right lower extremity: no edema Left lower extremity: no edema Coding Level of Care Code Est Pt Level 3 (74290) Diagnoses Uncontrolled hypertension I10 Assessment & Plan Assessment & Plan (1) Uncontrolled hypertension: Code(s): I10 - Essential (primary) hypertension Category: Medical Plan Patient is 78-year-old gentleman came in today to be evaluated for hypertension Patient's blood pressure has been running high He is currently taking atenolol 50 mg b.i.d. and losartan 50 mg b.i.d. I am adding amlodipine 5 mg Patient is to return next week for nursing visit to have blood pressure rechecked. Medications: New amlodipine 5 mg PO DAILY 30 tabs 0RF
[2024-02-23 10:20] VITALS: BP 150/86
== END 2024-02-23 10:47 | disposition home or self-care (01) ==
LOC: HO.HMCC 10:18
PROVIDERS: PCP Internal Medicine; Visit Provider Internal Medicine
DX: I10 Essential (primary) hypertension (principal)

== ENCOUNTER → 2024-03-03 13:01 | Outpatient (BNVA) | payer OTHER, SELFPAY | PROVIDERS: PCP Internal Medicine ==

== ENCOUNTER → 2024-03-31 09:41 | Outpatient (BNVA) | payer OTHER, SELFPAY | PROVIDERS: PCP Internal Medicine; Visit Provider Internal Medicine ==

== ENCOUNTER 2024-04-06 12:58 | Outpatient (AMB) | payer OTHER, SELFPAY ==
--- NOTE | 2024-04-06 13:03 | A.OFFPC_ITS ---
Vital Signs 04/06/24 13:06 Height 5 ft 10 in Weight 196 lb BMI 28.1 BP 150/80 H Blood Pressure Location Rt brachial Position Sitting Pulse 58 Pulse Source Pulse Oximeter Pulse Oximetry (%) 98 Oxygen Delivery Method Room Air Intake Visit Reasons: 3m follow up Allergies Sulfa (Sulfonamide Antibiotics) [SULFA (SULFONAMIDE ANTIBIOTICS)] Allergy (Severe, Verified 04/06/24 13:08) ANAPHYLAXIS Medication List - Last Reconciled 04/06/24 by Kaitlyn Bowman MD acetaminophen (Tylenol) 325 mg PO ONCE PRN 90 days allopurinol 100 mg PO DAILY 90 days atenolol 50 mg PO BID 90 days atorvastatin 40 mg PO DAILY 90 days blood pressure monitor Check blood pressure daily or as needed cholecalciferol (vitamin D3) 25 mcg PO DAILY 90 days losartan 50 mg PO BID 90 days multivitamin 1 tab PO QAM 90 days [Velcro back belt As directed] Tobacco use date assessed: 04/06/24 Last assessed Fall Risk: 04/06/24 Dental Screening Dental Screen Date: 04/06/24 HPI 3m follow up HPI Details Patient is 78-year-old gentleman continued to have elevated pressure He could not tolerate amlodipine due to swelling of his ankles Currently taking atenolol 50 mg b.i.d. and losartan 50 mg b.i.d. I am adding hydrochlorothiazide 25 mg Patient is requesting a referral to Cardiology for the management of blood pressure which I have placed Meanwhile patient will return in a week to 10 days for blood pressure recheck [facility] Medical History Hyperlipidemia Hypertension Surgical History History of surgery of head Hx of esophagogastroduodenoscopy Hx of colonoscopy H/O hemorrhoidectomy Social History Household Members: Spouse Housing: Apartment Are you a primary intensive care medicine specialist to a significant other at home: No Do you presently have visiting nurse or other home services: No Alcohol intake: never Patient Tobacco Use Status: Never used Tobacco e-Cigarette/Vaping Use: Never Used service: No Current occupational status: unemployed Cognitive needs: No Hearing needs: No Vision needs: No Questionnaire Thrive Questionnaire Date Thrive assessed: 01/06/24 EUGENE-7 AMB Questionnaire EUGENE-7 Date EUGENE - 7 assessed: 01/06/24 Source: Developed by Drs. Solomon Talamantes, Margarita Em, Rudi Vinson and colleagues, with an educational katie from [employer]. Review of Systems Const Denies chills and Denies fever(s) ENT Denies epistaxis and Denies nasal discharge Card Denies chest pain Resp Denies chest congestion, Denies cough and Denies hemoptysis GI Denies diarrhea and Denies nausea Skin/Breast Denies rash Neuro Reports no additional complaints Psych Reports no additional complaints Endo Reports no additional complaints Physical exam (Primary Care) Vital Signs: Last Vital Signs Pulse 58 04/06/24 13:06 BP 150/80 H 04/06/24 13:06 Pulse Ox 98 04/06/24 13:06 Oxygen Delivery Method Room Air 04/06/24 13:06 BMI result Body Mass Index 28.1 Tobacco/Smoking Status: Tobacco use Status Tobacco use date assessed 04/06/24 04/06/24 13:06 Patient Tobacco Use Status Never used Tobacco 04/06/24 13:05 e-Cigarette/Vaping Use Never Used 04/06/24 13:05 Thrive Assessment: Date of Thrive Assessment Date Thrive assessed 01/06/24 04/06/24 13:05 Const General: cooperative, comfortable and no acute distress Orientation/consciousness: patient oriented x3 HENMT Head: Yes normocephalic Eyes General: appearance normal, both eyes and all related structures Neck Neck: Yes supple Resp Effort & Inspection: normal respiratory effort, no cough and no stridor Cardio Rhythm: regular rhythm Heart sounds: S1 normal heart sound present and S2 normal heart sound present Skin General skin exam: turgor normal Neuro General: patient oriented x3, tone normal and moves all extremities Extrem Right lower extremity: no edema Left lower extremity: no edema Coding Level of Care Code Est Pt Level 3 (88702) Diagnoses Palpitations R00.2 Elevated blood pressure reading R03.0 Assessment & Plan Assessment & Plan (1) Palpitations: Code(s): R00.2 - Palpitations Category: Medical (2) Elevated blood pressure reading: Code(s): R03.0 - Elevated blood-pressure reading, without diagnosis of hypertension Category: Medical Plan Patient is 78-year-old gentleman continued to have elevated pressure He could not tolerate amlodipine due to swelling of his ankles Currently taking atenolol 50 mg b.i.d. and losartan 50 mg b.i.d. I am adding hydrochlorothiazide 25 mg Patient is requesting a referral to Cardiology for the management of blood pressure which I have placed Meanwhile patient will return in a week to 10 days for blood pressure recheck Orders: Referrals Cardiology Referral R00.2 - Palpitations, R03.0 - Elevated blood-pressure reading, without diagnosis of hypertension Medications: New hydrochlorothiazide 25 mg PO DAILY 30 tabs 0RF Discontinued amlodipine Discontinued Reason: Doctor's Order 5 mg PO DAILY 30 tabs 0RF
[2024-04-06 13:06] VITALS: BP 150/80; PULSE 58; O2SAT 98; BMI 28.1
== END 2024-04-06 13:26 | disposition home or self-care (01) ==
PROVIDERS: PCP Internal Medicine; Visit Provider Internal Medicine
DX: R00.2 Palpitations (principal); R03.0 Elevated blood-pressure reading, without diagnosis of hypertension

== ENCOUNTER → 2024-04-06 12:58 | Outpatient (BNVA) | payer OTHER, SELFPAY | PROVIDERS: PCP Internal Medicine; Visit Provider Internal Medicine | DX: R00.2 Palpitations (principal); R03.0 Elevated blood-pressure reading, without diagnosis of hypertension | CPT/HCPCS: 99212 ==

== ENCOUNTER 2024-04-15 10:39 | Outpatient (AMB) | payer OTHER, SELFPAY ==
[2024-04-15 11:03] VITALS: BP 124/72; PULSE 58; O2SAT 99; BMI 27.5
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
== END 2024-04-15 11:23 | disposition home or self-care (01) ==
PROVIDERS: PCP Internal Medicine; Visit Provider Internal Medicine
DX: I10 Essential (primary) hypertension (principal); R10.13 Epigastric pain

== ENCOUNTER → 2024-04-15 10:39 | Outpatient (BNVA) | payer OTHER, SELFPAY | PROVIDERS: PCP Internal Medicine; Visit Provider Internal Medicine | DX: I10 Essential (primary) hypertension (principal); R10.13 Epigastric pain | CPT/HCPCS: 99212 ==

== ENCOUNTER 2024-05-09 08:18 | Outpatient (REF) | payer OTHER, SELFPAY ==
[2024-05-09 11:14] LABS: Influenza A PCR NEGATIVE (Negative); Influenza B PCR NEGATIVE (Negative); Resp Syncy Virus RNA Qual PCR NEGATIVE (Negative); SARS COV2 PCR INHOUSE NEGATIVE (Negative)
== END 2024-05-09 08:19 | disposition home or self-care (01) ==
LOC: HO.LAB 08:18
PROVIDERS: PCP Internal Medicine; Visit Provider Physician Assistant
DX: J06.9 Acute upper respiratory infection, unspecified (principal); K59.1 Functional diarrhea
CPT/HCPCS: 0241U; 99212

== ENCOUNTER 2024-05-09 08:18 | Outpatient (AMB) | payer OTHER, SELFPAY ==
--- NOTE | 2024-05-09 08:27 | MHC.OFFWIV ---
Intake Vital Signs 05/09/24 08:30 Height 5 ft 10 in Weight 189 lb BMI 27.1 BP 130/70 Blood Pressure Location Lt brachial Position Sitting Pulse 86 Pulse Source Pulse Oximeter Temp 99.1 F Temp Source Oral Pulse Oximetry (%) 97 Oxygen Delivery Method Room Air Intake Visit Reasons: EP weakness, headache, cough, lack of sleep Intake Note: Pt is here today c/o weakness,h/a,cough and lack of sleep Patient Tobacco Use Status: Never used Tobacco Allergies Sulfa (Sulfonamide Antibiotics) [SULFA (SULFONAMIDE ANTIBIOTICS)] Allergy (Severe, Verified 05/09/24 08:31) ANAPHYLAXIS amlodipine Adverse Reaction (Mild, Verified 05/09/24 08:31) Edema HPI HPI Comments History of Present Illness Details History - The patient is a 79-year-old male presenting with a persistent cough and headache interfering with sleep over the past two nights. - He has experienced unintentional weight loss of approximately 10 pounds over 4 weeks, potentially linked to diarrhea which pt thinks is caused by Hydrochlorothiazide. - No interventions have been tried for the headache before this visit. - Vital signs, including blood pressure, are reported to be normal. - No fever or shortness of breath reported, but the patient is concerned about further weight loss. Physical Exam General: Cooperative, healthy appearing, comfortable and no acute distress Orientation/consciousness: Patient oriented x3 Limitations: No limitations Head: Normal to inspection Ears: Fluid present in both ears Nose: Normal external nose present, Normal nares present and No nasal discharge present Face and sinus: Normal facial exam and Sinuses tender Mouth: Normal oral and palatal mucosa present and moist mucous membranes Throat: Yes tonsils normal, Yes uvula midline. Posterior oropharynx erythema Eyes: Appearance normal, both eyes and all related structures Neck: Normal visual inspection Respiratory: Clear to auscultation bilaterally. Normal respiratory effort, able to speak in complete sentences, Actively coughing, no respiratory distress, not tachypneic, no tripod positioning and no use of accessory muscles Cardiovascular: Regular rate and rhythm. Normal S1 and S2 Skin: No rashes or lesions noted Neuro: Patient oriented x3 Extremities: Normal to inspection and Yes no clubbing, cyanosis or edema PFSH Medical History Hyperlipidemia Hypertension Surgical History History of surgery of head Hx of esophagogastroduodenoscopy Hx of colonoscopy H/O hemorrhoidectomy Social History Household Members: Spouse Housing: Apartment Are you a primary career development coordinator/teacher to a significant other at home: No Do you presently have visiting nurse or other home services: No Alcohol intake: never Patient Tobacco Use Status: Never used Tobacco e-Cigarette/Vaping Use: Never Used service: No Current occupational status: unemployed Cognitive needs: No Hearing needs: No Vision needs: No Review of Systems Const All systems reviewed & are unremarkable except as noted in HPI and below Physical Exam Vital Signs: Last Vital Signs Temp 99.1 F 05/09/24 08:30 Pulse 86 05/09/24 08:30 BP 130/70 05/09/24 08:30 Pulse Ox 97 05/09/24 08:30 Oxygen Delivery Method Room Air 05/09/24 08:30 BMI result Body Mass Index 27.1 Assessment & Plan Assessment & Plan (1) URI, acute: Code(s): J06.9 - Acute upper respiratory infection, unspecified Plan: Plan Acetaminophen has been recommended at 1 gram every 8 hours for headache relief as associated with sinusitis symptoms. For potential respiratory infections, nasal swabs were sent for analysis for influenza, COVID-19, and RSV. Further consultations will align with primary care follow-up concerning unresolved issues. Patient was informed and verbally consented to the use of an ambient scribe for clinic note documentation during this visit (2) Diarrhea: Code(s): R19.7 - Diarrhea, unspecified Qualifiers: Diarrhea type: functional diarrhea Qualified Code(s): K59.1 - Functional diarrhea Plan: The diarrhea, which pt thinks is potentially caused by Hydrochlorothiazide, will be addressed with the patient?s primary care provider for alternative measures, recognizing its contribution to weight loss of 8lbs over the last month. Comprehensive discussions surrounding the patient?s nourishment with good nutritional intake are crucial given the noted weight loss. Direct interventions for insomnia were not established during the visit, pending outcomes of initial symptom management. Orders: Orders SARS-CoV2/FLU/RSV Today J06.9 - Acute upper respiratory infection, unspecified Coding Level of Care Code Est Pt Level 4 (72446) Diagnoses URI, acute J06.9 Functional diarrhea K59.1 Diarrhea type: functional diarrhea
[2024-05-09 08:30] VITALS: BP 130/70; PULSE 86; TEMP 37.3; O2SAT 97; BMI 27.1
== END 2024-05-09 09:15 | disposition home or self-care (01) ==
PROVIDERS: PCP Internal Medicine; Visit Provider Physician Assistant
DX: J06.9 Acute upper respiratory infection, unspecified (principal); K59.1 Functional diarrhea

== ENCOUNTER 2024-05-12 13:05 | Outpatient (AMB) | payer OTHER, SELFPAY ==
--- NOTE | 2024-05-12 13:10 | A.OFFVIS_ITS ---
Vital Signs 05/12/24 13:11 Height 5 ft 10 in Weight 189 lb BMI 27.1 BP 137/67 Blood Pressure Location Lt brachial Position Sitting Pulse 67 Intake Visit Reasons: 6 month follow up Intake Note: Patient 6 month follow up for History of colon polyps Patient denies any GI issues for today visit. Display Maker Required: No Accompanied by: Self / Same As Patient Allergies Sulfa (Sulfonamide Antibiotics) [SULFA (SULFONAMIDE ANTIBIOTICS)] Allergy (Severe, Verified 05/12/24 13:10) ANAPHYLAXIS amlodipine Adverse Reaction (Mild, Verified 05/12/24 13:10) Edema Medication List - Last Reconciled 05/12/24 by Turner Torres MD acetaminophen 325 mg PO ONCE PRN 90 days allopurinol 100 mg PO DAILY 90 days atenolol 50 mg PO BID 90 days atorvastatin 40 mg PO DAILY 90 days blood pressure monitor Check blood pressure daily or as needed cholecalciferol (vitamin D3) 25 mcg PO DAILY 90 days hydrochlorothiazide 25 mg PO DAILY losartan 50 mg PO BID 90 days multivitamin 1 tab PO QAM 90 days [Velcro back belt As directed] HPI HPI 6 month follow up: Details: GI Clinic visit for this 79 year Khmer speaking [place] Citizen [place] male YM for FU of H pylori infection. TODAY'S VISIT: Here to schedule a colonoscopy for FU of colon polyps. Denies abd pain, change in BM or rectal bleeding. Took Hctz x 1 month and had to stop due to diarrhea Scheduled for colonoscopy on 06/20/24 and his son made reservations for him to go to [facility] on 06/16/24. He would like to reschedule his colon appt to after he returns in July, Pt has been referred to Cardiology for a general checkup Pt has hypertension and denies chest pain or SOB. PAST VISITS: Finished antibiotic treatment for H pylori without side effects Occasional gas problems Intermittent pain behind left shoulder at night. Had surgery for subdural hematoma in 01/2021 at [facility] Hospitalized for 3 days. EGD and Colonoscopy results reviewed with the patient. Doing OK and denies any problems after EGD and Colonoscopy Patient denies symptoms of heartburn, dysphagia, nausea, vomiting, change in appetite or weight. Denies recent change in bowel habits, constipation, diarrhea, black stools or rectal bleeding. Patient denies major cardiac or pulmonary problems, loud snoring or sleep apnea Denies problems with anesthesia in the past. Denies being on chronic anticoagulation. Had surgery for bleeding hemorrhoids in 1955 in [place] and denies any problems since then. Patient denies having an upper endoscopy or colonoscopy in the past. He denies known family history of colon polyps, colon cancer or other GI malignancies. Pt worked for the [employer] and is retired. Moved to the [place] 5 yrs ago with his since two of his daughters live here. PAST GI HISTORY BY REVIEW OF MEDICAL RECORDS: 06/12/20 patient was seen by Dr. Bowman: Hypertension:? Patient is taking atenolol 50 mg once a day his blood pressure is 160/88. Patient has a blood pressure monitor at home however not monitoring his blood pressure last time he has seen his previous PCP was 2 months ago however does not know what his blood pressure was at that time.? I am increasing his atenolol to 50 mg b.i.d., patient was instructed to start monitoring his blood pressure and keep a log and bring it along next time. Lipid disorder:? Continue atorvastatin 40 mg once a day due for labs, patient was instructed to do it fasting. Never had colonoscopy done referral placed. History of gout, stable at this time I have added uric acid level IMAGING STUDIES:? 10/[address] SCAN SHOWED: Stone in rt UVJ with moderate rt hydronephrosis. Large exophytic cyst seen posterior to the right kidney. Multiple hepatic cysts ENDOSCOPIC STUDIES: 07/30/20 EGD AND COLONOSCOPY SHOWED: Endoscopy Findings: STOMACH: Mild antral gastritis DUODENUM: Normal - biopsied to check for celiac sprue Colonoscopy Findings:? Four small to medium sized polyps removed Moderate diverticulosis seen in the sigmoid colon Moderate hemorrhoids on retroflexed exam. Plan:? Patient has an appointment on 08/16/20 in the GI Clinic with Turner Torres M.D. Repeat Colonoscopy interval based on path results - in 3-5 years if polyps are adenomatous and 10 years if polyps are hyperplastic. Above findings were reviewed with the patient and colon polyps and diverticulosis handouts were given in the discharge area BIOPSIES SHOWED: A.? Small bowel, biopsies:? Duodenal mucosa within normal limits; negative for active and chronic duodenitis, intraepithelial lymphocytosis, villous blunting, dysplasia, and carcinoma. B.? Gastric, antrum, biopsies:? Antral and corpus mucosa with moderate chronic active gastritis and numerous Helicobacter pylori; negative for intestinal metaplasia, dysplasia, and carcinoma. C.? Colon, transverse, polypectomy:? Tubular adenoma; negative for high grade dysplasia and carcinoma. D.? Colon, descending, polypectomies:? Tubular adenoma (x 1); negative for high grade dysplasia and carcinoma.? Hyperplastic polyp (x 1). E.? Colon, sigmoid, polypectomy:? Fragments of vegetable matter/food particles.? Colonic mucosa is not identified.? PFSH Medical History Hyperlipidemia Hypertension Surgical History History of surgery of head Hx of esophagogastroduodenoscopy Hx of colonoscopy H/O hemorrhoidectomy Social History Household Members: Spouse Housing: Apartment Are you a primary resident care technician to a significant other at home: No Do you presently have visiting nurse or other home services: No Alcohol intake: never Patient Tobacco Use Status: Never used Tobacco e-Cigarette/Vaping Use: Never Used service: No Current occupational status: unemployed Cognitive needs: No Hearing needs: No Vision needs: No Review of Systems Const All systems reviewed & are unremarkable except as noted in HPI and below Physical Exam Vital Signs: Last Vital Signs Pulse 67 05/12/24 13:11 BP 137/67 05/12/24 13:11 BMI result Body Mass Index 27.1 Const General: no acute distress Nutritional Appearance: overweight Orientation/consciousness: patient oriented x3 Limitations: no limitations HEENT Head: Yes normal to inspection Ears: hearing grossly normal bilaterally Eyes Sclerae: sclerae normal Pupils: Equal, round and reactive pupils present Neck Neck: Yes normal visual inspection Chest Chest palpation & inspection: normal inspection of the chest Resp Effort & Inspection: normal respiratory effort Auscultation: clear to auscultation bilaterally Cardio Palpation: normal PMI Rate: regular rate Rhythm: regular rhythm Heart sounds: S1 normal heart sound present, S2 normal heart sound present and no murmurs GI Palpation (GI): Soft to palpation, nontender and No hepatosplenomegaly present Auscultation: normal bowel sounds Rectal Exam - Male: Yes deferred Skin General skin exam: no rashes or lesions noted Neuro General: patient oriented x3, gait normal and moves all extremities Cranial nerves: Yes Equal, round and reactive pupils present Psych Appearance: grossly normal Mental Status: mental status grossly normal Assessment & Plan Assessment & Plan (1) Helicobacter pylori gastritis: Code(s): K29.70 - Gastritis, unspecified, without bleeding; B96.81 - Helicobacter pylori [H. pylori] as the cause of diseases classified elsewhere Category: Medical (2) History of colon polyps: Comment: 07/2020 colonoscopy showed diverticulosis and hemorrhoids. Three small to medium-sized adenomatous polyps were removed. Repeat colonoscopy is advised in 3 years (due 07/2023) Code(s): Z86.010 - Personal history of colon polyps Category: Medical (3) Vitamin D deficiency: Code(s): E55.9 - Vitamin D deficiency, unspecified Category: Medical (4) Dyspepsia: Code(s): R10.13 - Epigastric pain Category: Medical Plan 79 year old Khmer speaking [place] Citizen [place] male referred to GI for colon cancer screening. Patient denied any upper or lower GI symptoms. No known family history of GI malignancy.? Labs revealed mild normocytic normochromic anemia with normal vitamin B12 level. 07/2020 EGD showed gastritis and gastric biopsies were positive for Helicobacter pylori. Three adenomatous polyps were removed during same-day colonoscopy - repeat colonoscopy advised in 3 years Patient was prescribed triple therapy for H pylori gastritis and FU stool test for H pylori antigen was negative. 05/12/24 Pt scheduled for colonoscopy for FU of colon polyps on 06/20/24 and requesting to reschedule since [place] 15 till July 13. Requested Cardiologu to move up his Cardiology appt if possible so he can be seen before he leaves FU in 6 months Coding Level of Care Code Est Pt Level 3 (59783) Diagnoses Helicobacter pylori gastritis K29.70; B96.81 History of colon polyps Z86.010 Vitamin D deficiency E55.9 Dyspepsia R10.13 Time Spent (min) 16
[2024-05-12 13:11] VITALS: BP 137/67; PULSE 67; BMI 27.1
== END 2024-05-12 14:05 | disposition home or self-care (01) ==
PROVIDERS: PCP Internal Medicine; Visit Provider Internal Medicine Gastroenterology
DX: K29.70 Gastritis, unspecified, without bleeding (principal); B96.81 Helicobacter pylori [H. pylori] as the cause of diseases classified elsewhere; Z86.0100 Personal history of colon polyps, unspecified; E55.9 Vitamin D deficiency, unspecified; R10.13 Epigastric pain
CPT/HCPCS: 99213

== ENCOUNTER → 2024-05-12 13:05 | Outpatient (BNVA) | payer OTHER, SELFPAY | PROVIDERS: PCP Internal Medicine; Visit Provider Internal Medicine Gastroenterology | DX: K29.70 Gastritis, unspecified, without bleeding (principal); B96.81 Helicobacter pylori [H. pylori] as the cause of diseases classified elsewhere; E55.9 Vitamin D deficiency, unspecified; R10.13 Epigastric pain; Z86.0100 Personal history of colon polyps, unspecified | CPT/HCPCS: 99212 ==

== ENCOUNTER 2024-05-16 13:35 | Outpatient (AMB) | payer OTHER, SELFPAY ==
[2024-05-16 14:35] VITALS: BP 140/72; PULSE 58; BMI 27.4
--- NOTE | 2024-05-16 14:35 | MHC.OFFVIS ---
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 Allergies Sulfa (Sulfonamide Antibiotics) [SULFA (SULFONAMIDE ANTIBIOTICS)] Allergy (Severe, Verified 05/12/24 13:10) ANAPHYLAXIS amlodipine Adverse Reaction (Mild, Verified 05/12/24 13:10) Edema Medication List - Last Reconciled 05/16/24 by Calixto Heller MD acetaminophen 325 mg PO ONCE PRN 90 days allopurinol 100 mg PO DAILY 90 days atenolol 50 mg PO BID 90 days atorvastatin 40 mg PO DAILY 90 days blood pressure monitor Check blood pressure daily or as needed cholecalciferol (vitamin D3) 25 mcg PO DAILY 90 days losartan 50 mg PO BID 90 days multivitamin 1 tab PO QAM 90 days [Velcro back belt As directed] HPI Comments Details: [age] year gentleman who is here for 1st office visit. He has background history of hypertension. He had subdural hematoma in the past and had surgery in [facility]. He follows with GI closely. He has no symptoms currently. Denying chest discomfort shortness of breath. He previously had some palpitations in the past but nothing recently. He is active and walks regularly without any exertional symptoms. Blood pressure is elevated. He is taking atenolol 50 mg twice a day and losartan 50 mg twice a day. He had not tolerated hydrochlorothiazide and had some diarrhea due to that. Amlodipine previously was tried and he could not tolerate it due to peripheral edema. [facility] Medical History Hyperlipidemia Hypertension Surgical History History of surgery of head Hx of esophagogastroduodenoscopy Hx of colonoscopy H/O hemorrhoidectomy Social History Household Members: Spouse Housing: Apartment Are you a primary rn managed care to a significant other at home: No Do you presently have visiting nurse or other home services: No Alcohol intake: never Patient Tobacco Use Status: Never used Tobacco e-Cigarette/Vaping Use: Never Used service: No Current occupational status: unemployed Cognitive needs: No Hearing needs: No Vision needs: No Review of Systems Const Denies chills, Denies fatigue, Denies fever(s), Denies frequent falls, Denies weakness, Denies weight gain and Denies weight loss ENT Denies dizziness Card Denies chest pain, Denies leg edema, Denies lightheadedness, Denies palpitations, Denies dyspnea and Denies dyspnea on exertion Resp Denies cough, Denies dyspnea and Denies dyspnea on exertion GI Denies hematochezia Musc Denies abnormal gait, Denies muscle weakness, Denies numbness, Denies radiating pain into limb and Denies tingling Neuro Denies abnormal gait, Denies dizziness, Denies frequent falls, Denies numbness, Denies tingling and Denies weakness Endo Denies fatigue and Denies palpitations Physical Exam Vital Signs: Last Vital Signs Pulse 58 05/16/24 14:35 BP 140/72 H 05/16/24 14:35 BMI result Body Mass Index 27.4 GENERAL APPEARANCE: in no acute distress, pleasant. NECK: no carotid bruit, no jugular venous distention. SKIN: no suspicious lesions, warm and dry. HEART: no murmurs, regular rate and rhythm. LUNGS: clear to auscultation bilaterally. ABDOMEN: soft, nontender. EXTREMITIES: no edema. PERIPHERAL PULSES: equal. NEUROLOGIC: No gross deficits, AAO X 3 Office Procedures EKG Details: Sinus bradycardia, artifact in tracing but no obvious arrhythmia noted. QTC 461 milliseconds. [id number], Complete Assessment & Plan Assessment & Plan (1) Hypertension, essential: Code(s): I10 - Essential (primary) hypertension Category: Medical Plan Pleasant 79 year gentleman who is here for 1st office visit. His blood pressure is elevated. He has not tolerated amlodipine and hydrochlorothiazide in the past. He is currently on atenolol 50 mg twice a day and losartan 50 mg twice a day. His previous basic metabolic panel has not shown elevated potassium. I am adding spironolactone 25 mg daily. We will have him repeat blood workup in 2 weeks. If he does not tolerate spironolactone then isosorbide mononitrate 30 mg can be tried. We will get an echocardiogram to get basic information about any structural heart disease. Overall clinically stable and will see us back in few months. Thank you for allowing me to participate in the care of your patient. Please feel free to contact me if you have any questions. Orders: Orders CA echo transthorac w con Today I10 - Essential (primary) hypertension Basic Metabolic Panel 2 Weeks I10 - Essential (primary) hypertension Medications: New spironolactone 25 mg PO DAILY 30 tabs 3RF I10 - Essential (primary) hypertension Coding Level of Care Code New Pt Level 3 (93563) Diagnoses Hypertension, essential I10 CPT Codes EKG - CPT: 08526-[id number], Complete ([id number])
== END 2024-05-16 15:06 | disposition home or self-care (01) ==
PROVIDERS: PCP Internal Medicine; Visit Provider Internal Medicine Cardiovascular Disease
DX: I10 Essential (primary) hypertension (principal)
CPT/HCPCS: 93010; 99203

== ENCOUNTER → 2024-05-16 13:35 | Outpatient (BNVA) | payer OTHER, SELFPAY | PROVIDERS: PCP Internal Medicine; Visit Provider Internal Medicine Cardiovascular Disease | DX: I10 Essential (primary) hypertension (principal); R94.31 Abnormal electrocardiogram [ECG] [EKG]; R00.1 Bradycardia, unspecified; I44.0 Atrioventricular block, first degree | CPT/HCPCS: 93005; 99202 ==

== ENCOUNTER 2024-05-24 12:48 | Outpatient (AMB) | payer OTHER, SELFPAY ==
[2024-05-24 12:58] VITALS: BP 130/80; PULSE 74; RESP 14; O2SAT 98; BMI 28.0
--- NOTE | 2024-05-24 12:58 | A.OFFPC_ITS ---
Vital Signs 05/24/24 12:58 Height 5 ft 10 in Weight 195 lb BMI 28.0 BP 130/80 Blood Pressure Location Lt brachial Position Sitting Respiration 14 Pulse 74 Pulse Source Pulse Oximeter Pulse Oximetry (%) 98 Oxygen Delivery Method Room Air Intake Visit Reasons: HTN, medication Allergies Sulfa (Sulfonamide Antibiotics) [SULFA (SULFONAMIDE ANTIBIOTICS)] Allergy (Severe, Verified 05/12/24 13:10) ANAPHYLAXIS amlodipine Adverse Reaction (Mild, Verified 05/12/24 13:10) Edema Medication List - Last Reconciled 05/24/24 by Kaitlyn Bowman MD acetaminophen 325 mg PO ONCE PRN 90 days allopurinol 100 mg PO DAILY 90 days atenolol 50 mg PO BID 90 days atorvastatin 40 mg PO DAILY 90 days blood pressure monitor Check blood pressure daily or as needed cholecalciferol (vitamin D3) 25 mcg PO DAILY 90 days losartan 50 mg PO BID 90 days multivitamin 1 tab PO QAM 90 days spironolactone 25 mg PO DAILY [Velcro back belt As directed] Tobacco use date assessed: 04/15/24 Fall risk assessment: No Falls in past year Last assessed Fall Risk: 05/24/24 Dental Screening Dental Screen Date: 04/06/24 HPI HTN, medication HPI Details The patient is a 79-year-old male presenting with management needs for essential hypertension and hypercholesterolemia. - The patient has been maintaining essen tial hypertension with medication regimens including atenolol and losartan, b.i.d. These are reported to be effective in keeping his blood pressure readings around 130/80 mmHg. Patient has visited Dr. Heller cardiology of this month and spironolactone 25 mg was added which patient has not started yet Echocardiogram was also ordered, patient have follow-up appointment with him in July He will cancel the appointment with me in July, blood pressure and lipids to be managed by Cardiology as per patient. Lab order placed today last set of lab was in December Continue allopurinol for gout PCP office Medications - Atenolol: B.i.d. - Losartan: B.i.d. - Atorvastatin: For management of hyperc holesterolemia. - Allopurinol: Once a day - spironolactone [address] Heller - Multivitamins: Usage mentioned but not specified as necessary. Problem List - Essential Hypertension - Hypercholesterolemia - gout Patient Instructions - Continue taking atenolol and losartan b.i.d. - Consider starting spironolactone as di scussed with Dr. Heller. - Maintain regular blood pressure monito ring to ensure continued control. - Follow up with scheduled appointments with Cardiology and cancel appointment with me in July - Cholesterol and blood pressure managem ent remain a focus; adhere to dietary and lifestyle recommendations as previously discussed. Review of Systems - Cardiovascular: Reports current blood pressure management and near-normal readings. - GENERAL: No additional symptoms or con cerns reported during the conversation. neurological: No headaches no dizziness ear nose throat: No sore throat no hearing difficulty no ear pain gastrointestinal: No nausea vomiting or diarrhea endocrine: No polyuria polydipsia no heat intolerance genitourinary: No dysuria skin: No new complaints Physical Exam general: No acute distress HEENT: No acute findings neck: Supple respiratory system: Able to talk in full sentences, no audible wheeze no stridor cardiovascular: S1-S2 gastrointestinal: No pain extremities: No new findings SHERIFF OFFICER: Alert awake oriented x3 motor sensory intact skin: Normal turgor PFSH Medical History Hyperlipidemia Hypertension Surgical History History of surgery of head Hx of esophagogastroduodenoscopy Hx of colonoscopy H/O hemorrhoidectomy Social History Household Members: Spouse Housing: Apartment Are you a primary director of patient care to a significant other at home: No Do you presently have visiting nurse or other home services: No Alcohol intake: never Patient Tobacco Use Status: Never used Tobacco e-Cigarette/Vaping Use: Never Used service: No Current occupational status: unemployed Cognitive needs: No Hearing needs: No Vision needs: No Questionnaire Thrive Questionnaire Date Thrive assessed: 01/06/24 EUGENE-7 AMB Questionnaire EUGENE-7 Date EUGENE - 7 assessed: 01/06/24 Source: Developed by Drs. Solomon Talamantes, Margarita Em, Rudi Vinson and colleagues, with an educational katie from [employer]. Physical exam (Primary Care) Vital Signs: Last Vital Signs Pulse 74 05/24/24 12:58 Resp 14 05/24/24 12:58 BP 130/80 05/24/24 12:58 Pulse Ox 98 05/24/24 12:58 Oxygen Delivery Method Room Air 05/24/24 12:58 BMI result Body Mass Index 28.0 Tobacco/Smoking Status: Tobacco use Status Tobacco use date assessed 04/15/24 05/24/24 12:58 Patient Tobacco Use Status Never used Tobacco 05/24/24 12:58 e-Cigarette/Vaping Use Never Used 05/24/24 12:58 Thrive Assessment: Date of Thrive Assessment Date Thrive assessed 01/06/24 05/24/24 12:58 Coding Level of Care Code Est Pt Level 4 (38225) Diagnoses Hypertension, essential I10 Lipid disorder E78.9 Gouty arthritis M10.9 Assessment & Plan Assessment & Plan (1) Hypertension, essential: Code(s): I10 - Essential (primary) hypertension Category: Medical (2) Lipid disorder: Code(s): E78.9 - Disorder of lipoprotein metabolism, unspecified Category: Medical (3) Gouty arthritis: Code(s): M10.9 - Gout, unspecified Category: Medical Plan The patient is a 79-year-old male presenting with management needs for essential hypertension and hypercholesterolemia. - The patient has been maintaining essential hypertension with medication regimens including atenolol and losartan, b.i.d. These are reported to be effective in keeping his blood pressure readings around 130/80 mmHg. Patient has visited Dr. Heller cardiology of this month and spironolactone 25 mg was added which patient has not started yet Echocardiogram was also ordered, patient have follow-up appointment with him in July He will cancel the appointment with me in July, blood pressure and lipids to be managed by Cardiology as per patient. Lab order placed today last set of lab was in December Continue allopurinol for gout PCP office Medications - Atenolol: B.i.d. - Losartan: B.i.d. - Atorvastatin: For management of hypercholesterolemia. - Allopurinol: Once a day - spironolactone [address] Heller - Multivitamins: Usage mentioned but not specified as necessary. Problem List - Essential Hypertension - Hypercholesterolemia - gout Patient Instructions - Continue taking atenolol and losartan b.i.d. - Consider starting spironolactone as discussed with Dr. Heller. - Maintain regular blood pressure monitoring to ensure continued control. - Follow up with scheduled appointments with Cardiology and cancel appointment with me in July - Cholesterol and blood pressure management remain a focus; adhere to dietary and lifestyle recommendations as previously discussed. Orders: Orders LDL Cholesterol Direct Today E78.9 - Disorder of lipoprotein metabolism, unspecified, I10 - Essential (primary) hypertension, M10.9 - Gout, unspecified Complete Blood Count Auto Diff Today E78.9 - Disorder of lipoprotein metabolism, unspecified, I10 - Essential (primary) hypertension, M10.9 - Gout, unspecified Comprehensive Met. Panel Today E78.9 - Disorder of lipoprotein metabolism, unspecified, I10 - Essential (primary) hypertension, M10.9 - Gout, unspecified
--- OUTSIDE RECORDS SUMMARY | 2024-05-24 13:39 | XMS_ITS | Clinical Summary ---
Author Organization [facility] Address [address] [place] [address] Care Team Providers Care Adult Health Clinical Nurse Specialist Name Role Phone Unknown Primary Care Provider [phone] Allergies No known active allergies Medications Medication Sig Dispensed Refills Start Date End Date Status atenolol (TENORMIN) 50 MG tablet Take 50 mg by mouth 2 (two) times a day. 12/26/2020 Active atorvastatin (LIPITOR) 40 MG tablet Take 40 mg by mouth daily. 12/24/2020 Active acetaminophen (TYLENOL) 325 MG tabletIndications:Petty bdural hematoma (HCC) Take 3 tablets (975 mg total) by mouth every 6 (six) hours around the clock. 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 Social History Tobacco Use Types Packs/Day Years Used Date Smoking Tobacco: Never Assessed Sex and Gender Information Value Date Recorded Sex Assigned at Not on file Gender Identity Not on file Sexual Orientation Not on file Last Filed Vital Signs Vital Sign Reading Time Taken Comments Blood Pressure 138/84 02/26/2021 1:14 PM EDT Pulse 72 02/26/2021 1:14 PM EDT Temperature 35.8 ??C (96.4 ??F) 02/26/2021 1:14 PM ED T Respiratory Rate 20 02/26/2021 1:14 PM EDT Oxygen Saturation 97% 02/26/2021 1:14 PM EDT Inhaled Oxygen Concentration - - Weight 84.9 kg (187 lb 2.7 oz) 02/24/2021 2:15 P M EDT Height 175.3 cm (5' 9 ) 02/24/2021 2:15 PM EDT Body Mass Index 27.64 02/24/2021 2:15 PM EDT Plan of Treatment Health Maintenance Due Date Last Done Comments Hepatitis C Virus Screening 1945 DTaP/Tdap/Td Vaccines (1 - Tdap) 1965 Pneumococcal Vaccines 50+ (1 of 1 - PCV) 1996 Zoster (Shingles) Vaccine (1 of 2) 1996 RSV Vaccine 60 years and old er and Patients (1 - 1-dose 75+ series) 2021 Influenza Vaccine 11/26/2023 COVID-19 Vaccine ( - 2023-2 5 season) 2023 Hepatitis B Vaccines Aged Out No long er eligible based on patient's age to complete this topic Advance Directives * Full Code (Latest Code Status on File) Date Activated Date Inactivated Comments 02/24/2021 4:13 PM * Full Code Date Activated Date Inactivated Comments 02/23/2021 8:01 PM 02/24/2021 4:13 PM Care Teams Adult Health Clinical Nurse Specialist Relationship Specialty Start Date End Date Unknown Unknow Provider Address PCP - General 02/23/21
== END 2024-05-24 13:27 | disposition home or self-care (01) ==
PROVIDERS: PCP Internal Medicine; Visit Provider Internal Medicine
DX: I10 Essential (primary) hypertension (principal); E78.9 Disorder of lipoprotein metabolism, unspecified; M10.9 Gout, unspecified

== ENCOUNTER 2024-05-24 12:48 | Outpatient (REF) | payer OTHER, SELFPAY ==
--- OUTSIDE RECORDS SUMMARY | 2024-05-24 15:42 | XMS_ITS | Clinical Summary ---
Author Organization [facility] Address [address] [place] [address] Care Team Providers Care Roll Setter Name Role Phone Unknown Primary Care Provider [phone] Allergies No known active allergies Medications Medication [...] 8:01 PM 02/24/2021 4:13 PM Care Teams Roll Setter Relationship Specialty Start Date End Date Unknown Unknow Provider Address PCP - General 02/23/21
[2024-05-24 16:24] LABS: MANUAL DIFF FLAG NO
[2024-05-24 16:30] LABS: Basophils Absolute Auto 0.1 X10*3/uL (0.0-0.2); Basophils Percent Auto 1.3 % (0-2); Eosinophils Absolute Auto 0.1 X10*3/uL (0.0-0.4); Eosinophils Percent Auto 0.8 % (0-4); Hematocrit 35.3 % (42.0-52.0); Hemoglobin 11.7 g/dl (14.0-18.0); Imm Gran Abs Auto 0.02 X10*3/uL (0.00-0.03); Imm Gran Pct Auto 0.3 % (0.0-0.4); Lymphocytes Absolute Auto 2.5 X10*3/uL (1.2-4.9); Lymphocytes Percent Auto 41.3 % (20-40); Mean Corpuscular HGB Conc 33.1 g/dl (31.0-36.0); Mean Corpuscular Hemoglobin 30.2 pg (27.0-33.0); Mean Corpuscular Volume 91.2 fL (80.0-98.0); Mean Platelet Volume 11.1 fL (9.4-12.4); Monocytes Absolute Auto 0.6 X10*3/uL (0.1-1.2); Monocytes Percent Auto 10.7 % (2-11); Neutrophils Absolute Auto 2.7 x10*3/uL (2.0-8.3); Neutrophils Percent Auto 45.6 % (45-73); Platelet Count 214 X10*3/uL (160-400); Red Blood Count 3.87 X10*6/uL (4.60-5.80)
[2024-05-24 16:49] LABS: Alanine Aminotransferase 23 U/L (0-40); Albumin Level 3.8 g/dL (3.5-5.0); Alkaline Phosphatase 91 U/L (39-117); Anion Gap 8 (12-20); Aspartate Amino Transferase 19 U/L (5-37); Bilirubin Total 0.4 mg/dL (0.0-1.0); Blood Urea Nitrogen 16 mg/dL (9-16); Calcium 8.6 mg/dL (8.4-10.2); Carbon Dioxide 27 mmol/L (22-29); Chloride 109 mmol/L (96-108); Estimated Glomerular Filt Rate > 60; Glucose Random 96 mg/dL (60-115); Potassium 4.1 mmol/L (3.3-5.1); Sodium 140 mmol/L (135-145); Total Protein 6.7 g/dL (6.5-8.0)
[2024-05-25 20:53] LABS: LDL Cholesterol Direct 68 mg/dL (<100)
== END 2024-05-24 12:49 | disposition home or self-care (01) ==
LOC: HO.HMGCLDS 12:48
PROVIDERS: PCP Internal Medicine; Visit Provider Internal Medicine
DX: E78.9 Disorder of lipoprotein metabolism, unspecified (principal); M10.9 Gout, unspecified; I10 Essential (primary) hypertension
CPT/HCPCS: 36415; 80053; 83721; 85025; 99212

== ENCOUNTER 2024-06-06 13:53 | Outpatient (REF) | payer OTHER, SELFPAY ==
--- NOTE | ~2024-06-06 | XR_ITS ---
EXAMINATION: XR PELVIS CLINICAL INFORMATION: Right hip pain, s/p fall. COMPARISON: None available. TECHNIQUE: AP view of the pelvis. FINDINGS: No fracture. Hip joint spaces are maintained. Alignment is anatomic. Sacroiliac joints and pubic symphysis are normal. No abnormal soft tissue calcifications. XR/XR pelvis 1-2V IMPRESSION: Normal pelvis. Electronically signed by: Anirudh Remy MD 06/06/2024 03:28 PM IN[facility]
--- NOTE | ~2024-06-06 | XR_ITS ---
EXAMINATION: XR HIP, RIGHT CLINICAL INFORMATION: S70.01XA - Contusion of right hip, initial encounter COMPARISON: None available. TECHNIQUE: Two views of the right hip. FINDINGS: No fracture. Alignment is anatomic. Hip joint space is maintained. Soft tissues are unremarkable. XR/XR hip RT min 2V IMPRESSION: Normal right hip. Electronically signed by: Anirudh Remy MD 06/06/2024 03:27 PM IN[facility]
--- OUTSIDE RECORDS SUMMARY | 2024-06-06 16:07 | XMS_ITS | Clinical Summary ---
Author Organization [facility] Address [address] [place] [id number] Care Team Providers Care Nuclear Medicine Physician Name Role Phone Unknown Primary Care Provider [phone] Allergies No known active allergies Medications Medication [...] 8:01 PM 02/24/2021 4:13 PM Care Teams Nuclear Medicine Physician Relationship Specialty Start Date End Date Unknown Unknow Provider Address PCP - General 02/23/21
== END 2024-06-06 13:54 | disposition home or self-care (01) ==
LOC: HO.HMGCX 13:53
PROVIDERS: PCP Internal Medicine; Visit Provider Nurse Practitioner Family
DX: S70.01XA Contusion of right hip, initial encounter (principal)
CPT/HCPCS: 72170; 73502; 99212

== ENCOUNTER 2024-06-06 13:53 | Outpatient (AMB) | payer OTHER, SELFPAY ==
[2024-06-06 14:37] VITALS: BP 108/66; PULSE 72; O2SAT 98
--- NOTE | 2024-06-06 14:37 | MHC.OFFWIV ---
Intake Vital Signs 06/06/24 14:37 Weight 190 lb BP 108/66 Blood Pressure Location Rt brachial Position Sitting Pulse 72 Pulse Source Pulse Oximeter Pulse Oximetry (%) 98 Oxygen Delivery Method Room Air Intake Visit Reasons: EP pain on RT hip Intake Note: Patient here for right hip pain, he states he had a fall about 4 days ago and did not feel pain until after 2 days. Patient Tobacco Use Status: Never used Tobacco Allergies Sulfa (Sulfonamide Antibiotics) [SULFA (SULFONAMIDE ANTIBIOTICS)] Allergy (Severe, Verified 06/06/24 14:38) ANAPHYLAXIS amlodipine Adverse Reaction (Mild, Verified 06/06/24 14:38) Edema Do you need a note to return to daycare/school/sports/work: No HPI HPI Comments History of Present Illness Details 79 y/o male patient who presents to the walk in clinic with c/o right hip pain x 2 days. He fell on ice 4 days ago, and now is experiencing some discomfort with walking or bending by the Hip. [facility] Medical History (Updated 06/06/24 @ 14:56 by Ivette Sánchez NP) Contusion of right hip Hyperlipidemia Hypertension Surgical History History of surgery of head Hx of esophagogastroduodenoscopy Hx of colonoscopy H/O hemorrhoidectomy Social History Household Members: Spouse Housing: Apartment Are you a primary mall plant caretaker to a significant other at home: No Do you presently have visiting nurse or other home services: No Alcohol intake: never Patient Tobacco Use Status: Never used Tobacco e-Cigarette/Vaping Use: Never Used service: No Current occupational status: unemployed Cognitive needs: No Hearing needs: No Vision needs: No Review of Systems Const All systems reviewed & are unremarkable except as noted in HPI and below Physical Exam Vital Signs: Last Vital Signs Pulse 72 06/06/24 14:37 BP 108/66 06/06/24 14:37 Pulse Ox 98 06/06/24 14:37 Oxygen Delivery Method Room Air 06/06/24 14:37 Const General: cooperative and no acute distress Nutritional Appearance: well nourished Orientation/consciousness: patient oriented x3 Neuro General: patient oriented x3, gait normal and moves all extremities Extrem Right lower extremity: hip/thigh Details: tenderness Location: of the hip Location: laterally and abnormal ROM (Pain with ROM); no swelling and no crepitus Left lower extremity: normal to inspection and full ROM Upper/lower leg/hip images: 1. TTP small bruise, no hip dislocation seen. Psych Speech and movement: Normal speech and movement present Assessment & Plan Assessment & Plan (1) Contusion of right hip: Code(s): S70.01XA - Contusion of right hip, initial encounter Qualifiers: Encounter type: initial encounter Qualified Code(s): S70.01XA - Contusion of right hip, initial encounter Plan: Ordered Xray Hip Ice/Hot NSAIDs for pain relief. Medications: New cyclobenzaprine 5 mg PO BEDTIME 10 tabs 0RF S70.01XA - Contusion of right hip, initial encounter lidocaine 5% leave on most painful area for up to 12 hrs 1 patch topical DAILY 30 ea 0RF S70.01XA - Contusion of right hip, initial encounter ibuprofen 800 mg PO Q8H 20 tabs 0RF S70.01XA - Contusion of right hip, initial encounter Coding Level of Care Code Est Pt Level 4 (21495) Diagnoses Contusion of right hip, initial encounter S70.01XA Encounter type: initial encounter Time Spent (min) 20
== END 2024-06-06 15:27 | disposition home or self-care (01) ==
PROVIDERS: PCP Internal Medicine; Visit Provider Nurse Practitioner Family
DX: S70.01XA Contusion of right hip, initial encounter (principal)

== ENCOUNTER → 2024-06-06 14:58 | Outpatient (BNV) | payer OTHER, SELFPAY | PROVIDERS: PCP Internal Medicine; Visit Provider Radiology Diagnostic Radiology | DX: M25.551 Pain in right hip (principal); W19.XXXA Unspecified fall, initial encounter; S70.01XA Contusion of right hip, initial encounter | CPT/HCPCS: 72170; 73502 ==

== ENCOUNTER → 2024-06-14 09:56 | Outpatient (REF) | payer OTHER, SELFPAY ==
--- NOTE | 2024-06-14 10:01 | CA_ITS ---
Transthoracic Echocardiogram Amended Patient (Last, First, Middle): Deanna Loza, Gender: Male Date of : 1945 Age: 79 Procedure Date: 06/14/2024 Procedure Type: Transthoracic Echocardiogram Location: OP Height: 177.8 cm Weight: 86.18 kg BSA: 2.04 m2 Heart Rate: bpm BP: 112 / 64 mmHg Bobbin Winder Tender: MANUEL Referring MD: Calixto Heller MD Nurse Healthcare Manager: Calixto Heller MD Symptoms: I10 - Essential (primary) hypertension Study Quality: Adequate ECG Rhythm: Sinus Conclusions: - The left ventricular systolic function is normal. The calculated ejection fraction is 65% by biplane method. - The mid inferoseptal segment is hypokinetic. - No obvious valvular pathology seen on this study. Findings Left Ventricle Normal left ventricular cavity size. There is normal left ventricular wall thickness. The left ventricular systolic function is normal. The calculated ejection fraction is 65% by biplane method. There is evidence of regional wall motion abnormalities. Diastolic function is normal for age. Wall Motion Rest Echo Findings The mid inferoseptal segment is hypokinetic. Right Ventricle Normal right ventricular cavity size and systolic function. Atria Both atria are normal in size. Aortic Valve There is a normal trileaflet aortic valve. There is no aortic valve stenosis. There is no aortic valve regurgitation. Mitral Valve The mitral valve appears normal. There is trace mitral valve regurgitation. There is no mitral valve stenosis. Pulmonic Valve The pulmonic valve is likely normal. Tricuspid Valve There is mild tricuspid valve regurgitation. There is no evidence of pulmonary hypertension. Great Vessels The asc aorta and aortic arch are normal in size. Venous The inferior vena cava is normal in size and collapses greater than 50% with inspiration. Pericardium/Pleural There is no evidence of pericardial effusion. Prior Study Comparison No prior study available for comparison. Recommendations, Care & Conclusions No obvious valvular pathology seen on this study. Measurements 2D Linear Measurements IVSd: 1.00 0.6-0.9/0.6-1.0 cm LVIDd: 4.29 3.9-5.3/4.2-5.9 cm LVIDd Index: 2.10 2.4-3.2/2.2-3.1 cm/m2 LVIDs: 2.63 2.0-3.6 cm LVPWd: 0.89 0.7-1.1 cm LA Diam: 3.70 2.7-3.8/3.0-4.0 cm LAIDs Index: 1.81 1.5-2.3 cm/m2 LV Mass: 163.60 67-162/88-224 g LV Mass Index: 80.19 43-95/49-115 g/m2 LVOT Diam: 2.10 3.0+(-)1.3 cm 2D Volumes LA Vol: 19.30 2D Systolic Function EF 4C: 60.60 >55% EF 2C: 69.70 >55% EF BiP: 65.10 >55% Mitral Valve MV Pk E: 0.55 MV PK A: 0.88 MV Decel Time: 387.00 E/A: 0.60 E'Lateral: 7.07 E'Medial: 4.68 E/E' Med: 11.80 E/E' Lat: 7.80 PHT: 113.00 MVA PHT: 1.95 Decel [place]: 1.43 Aortic Valve AoV Pk John: 1.54 AoV Mn John: 1.06 AoV VTI: 0.32 AoV Pk Grad: 9.00 Aov Mn Grad: 5.00 NOEL Cont.VTI: 3.04 LVOT LVOT Pk John: 1.31 LVOT Mn John: 0.84 LVOT VTI: 0.28 LVOT Pk Grad: 7.00 LVOT Mn Grad: 3.00 LVOT Diam: 2.10 LVOT Area: 3.46 Diastolic Function MV Pk E: 0.55 MV Pk A: 0.88 E/A: 0.60 E'Medial: 4.68 E/E' Med: 11.80 E' Laterial: 7.07 E/E' Lat: 7.80 Right Ventricle TAPSE (mm): 25.80 TVS' John: 10.80 Tricuspid Valve TR Pk John: 2.55 TR Pk Grad: 26.00 RA Press: 3.00 RVSP: 29.00 Great Vessels Aorta Sinus of Valsalva: 3.35 2.0-3.[address] [place]: 2.55 1.7-3.4 cm Ao Asc: 3.30 2.1-3.4 cm Ao Arch: 3.10 Updated in Other Vendor System with Status of Final Indra Caballero MD electronically signed on 06/14/2024 4:44:40 PM with status of Final
--- OUTSIDE RECORDS SUMMARY | 2024-06-14 10:46 | XMS_ITS | Clinical Summary ---
Author Organization [facility] Address [address] [place] [address] Care Team Providers Care Improvement Rn Name Role Phone Unknown Primary Care Provider [phone] Allergies No known active allergies Medications Medication [...] 8:01 PM 02/24/2021 4:13 PM Care Teams Improvement Rn Relationship Specialty Start Date End Date Unknown Unknow Provider Address PCP - General 02/23/21
== END ==
LOC: HO.CARD 09:56
PROVIDERS: PCP Internal Medicine; Visit Provider Internal Medicine Cardiovascular Disease
DX: I10 Essential (primary) hypertension (principal)
CPT/HCPCS: 93306

== ENCOUNTER → 2024-06-14 10:01 | Outpatient (BNV) | payer OTHER, SELFPAY | PROVIDERS: PCP Internal Medicine; Visit Provider Internal Medicine | DX: I10 Essential (primary) hypertension (principal) | CPT/HCPCS: 93306 ==

== ENCOUNTER 2024-08-31 13:32 | Outpatient (AMB) | payer OTHER, SELFPAY ==
--- NOTE | 2024-08-31 13:38 | AM.OFFWIN_ITS ---
Intake Vital Signs 08/31/24 13:40 Weight 196 lb BP 108/70 Blood Pressure Location Lt brachial Position Sitting Pulse 66 Pulse Source Pulse Oximeter Pulse Oximetry (%) 98 Oxygen Delivery Method Room Air Intake Visit Reasons: EP-lt arm pain Intake Note: Patient here for left arm pain that has been present for about 1 week. Patient Tobacco Use Status: Never used Tobacco Allergies Sulfa (Sulfonamide Antibiotics) [SULFA (SULFONAMIDE ANTIBIOTICS)] Allergy (Severe, Verified 08/31/24 13:40) ANAPHYLAXIS amlodipine Adverse Reaction (Mild, Verified 08/31/24 13:40) Edema Do you need a note to return to daycare/school/sports/work: No HPI HPI Comments History of Present Illness Details Patient is a 79yo M with hx of HTN, cataracts, chronic edema who presents to office with L arm pain Ongoing x 1-2 week Pain located near L antecubital fossa Worse at night and better during the day Lasts approx 30 minutes and is intermittent Tried no medicine or heat/ice for it R hand dominant 0/10 pain now No specific worsening factors; it improves without any interventions Denies known trauma or injury No associated CP, SOB, parathesias He also said he has had issues with toenails on great toes He said the great toenail has fallen off and takes 6 months-1 year to grow back No pain associated No redness/swelling/discharge [facility] Medical History (Updated 08/31/24 @ 14:02 by Brittaney Childress PA-C) Contusion of right hip Hyperlipidemia Hypertension Surgical History History of surgery of head Hx of esophagogastroduodenoscopy Hx of colonoscopy H/O hemorrhoidectomy Social History Household Members: Spouse Housing: Apartment Are you a primary assurance services manager health care to a significant other at home: No Do you presently have visiting nurse or other home services: No Alcohol intake: never Patient Tobacco Use Status: Never used Tobacco e-Cigarette/Vaping Use: Never Used service: No Current occupational status: unemployed Cognitive needs: No Hearing needs: No Vision needs: No Review of Systems Const Denies chills, Denies fatigue, Denies fever(s) and Denies weakness Card Denies chest pain and Denies dyspnea Resp Denies cough and Denies dyspnea GI Denies abdominal pain and Denies vomiting Musc Reports arthralgias (L elbow intermittent), Denies joint swelling, Denies numbness and Denies tingling Skin/Breast Denies skin pain and Reports other (great toenail bilaterally issue) Neuro Denies numbness, Denies tingling, Denies paresthesias and Denies weakness Endo Denies fatigue Physical Exam Vital Signs: Last Vital Signs Pulse 66 08/31/24 13:40 BP 108/70 08/31/24 13:40 Pulse Ox 98 08/31/24 13:40 Oxygen Delivery Method Room Air 08/31/24 13:40 General: Non-toxic, NAD. Speaking full sentences. Skin: Warm dry throughout. Bilateral upper extremities equal in size and shape bilaterally. No LUE edema, erythema or ecchymosis. Feet without skin color changes or pallor. There is intact nails on both great toes without nailbed or cuticle disruption. Both great toenails are thickened with yellow appearance. Eye: EOMI Neck: No c-spine tenderness to palpation Respiratory: CTA bilaterally. No wheezes, rales or rhonchi Cardiac: RRR. No murmur. Radial pulse intact LUE MSK: No ttp L clavicle, AC joint, lateral humeral head of bicipital groove. No L elbow ttp of olecranon, medial or lateral condyles or grooves. + full ROM L shoulder and elbow. No pain ilicited with supination or pronation of forearms with elbows held at 90 degrees. Pt has no pain to palpation of LUE including biceps or forearm. He points to lateral epicondyle and tendon region as area of discomfort when it goes occur. Unable to illicit pain on exam Neurology: Alert. No aphasia or facial droop. Gait without abnormality Psych: Good mood and affect Assessment & Plan Assessment & Plan (1) Toenail fungus: Code(s): B35.1 - Tinea unguium Plan: Referral to skein winding operator (2) Arm pain, left: Code(s): M79.602 - Pain in left arm Plan: No pain illicited on exam today Vitals wnl and no CP or SOB Discussed naproxen prn pain when it occurs (not on Ibuprofen 800 at home) Discussed PCP follow up and call with concerns Pt gave verbal understanding and had no additional questions at time of d/c Orders: Referrals Podiatry Referral B35.1 - Tinea unguium Medications: New naproxen 375 mg PO BID PRN 14 tabs 0RF pain Coding Level of Care Code Est Pt Level 3 (76376) Diagnoses Toenail fungus B35.1 Arm pain, left M79.602
[2024-08-31 13:40] VITALS: BP 108/70; PULSE 66; O2SAT 98
--- OUTSIDE RECORDS SUMMARY | 2024-08-31 14:51 | XMS_ITS | Clinical Summary ---
Author Organization [facility] Address [address] [place] [address] Care Team Providers Care Supply Chain Director Name Role Phone Unknown Primary Care Provider [phone] -[phone] Allergies No known active allergies Medications atenolol (TENORMIN) 50 MG tablet Take 50 mg by mouth 2 (two) times a day. 12/26/2020 Active atorvastatin (LIPITOR) 40 MG tablet Take 40 mg by mouth daily. 12/24/2020 Active acetaminophen (TYLENOL) 325 MG tabletIndicatio ns:Subdural hematoma (HCC) Take 3 tablets (975 mg total) by mouth every 6 (six) hours around the clock. 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 Social History Tobacco Use Types Packs/Day Years Used Date Smoking Tobacco: Never Assessed Sex and Gender Information Value Date Recorded Sex Assigned at Not on file Legal Sex Male 4:12 PM EDT Gender Identity Not on file Sexual Orientation [...] Patients (1 - 1-dose 75+ series) 2021 COVID-19 Vaccine (1 - 2023-2 5 season) 2023 Influenza Vaccine 11/25/2024 Hepatitis B Vaccines Aged Out No long er eligible based on patient's age to complete this topic Insurance [facility] Advance Directives * Full Code (Latest Code Status on File) Date Activated Date Inactivated Comments 02/24/2021 4:13 PM * Full Code Date Activated Date Inactivated Comments 02/23/2021 8:01 PM 02/24/2021 4:13 PM Care Teams Supply Chain Director Relationship Specialty Start Date End Date Unknown Unknow Provider Address PCP - General 02/23/21
== END 2024-08-31 14:07 | disposition home or self-care (01) ==
PROVIDERS: PCP Internal Medicine; Visit Provider Physician Assistant
DX: B35.1 Tinea unguium (principal); M79.602 Pain in left arm

== ENCOUNTER → 2024-08-31 13:32 | Outpatient (BNVA) | payer OTHER, SELFPAY | PROVIDERS: PCP Internal Medicine; Visit Provider Physician Assistant | DX: B35.1 Tinea unguium (principal); M79.602 Pain in left arm | CPT/HCPCS: 99212 ==

== ENCOUNTER 2024-09-16 09:53 | Outpatient (AMB) | payer OTHER, SELFPAY ==
[2024-09-16 09:55] VITALS: BP 120/72; PULSE 70; O2SAT 97; BMI 27.1
--- NOTE | 2024-09-16 09:55 | A.OFFPC_ITS ---
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 Required: No Accompanied by: Self / Same As Patient Allergies Sulfa (Sulfonamide Antibiotics) [SULFA (SULFONAMIDE ANTIBIOTICS)] Allergy (Severe, Verified 09/16/24 09:56) ANAPHYLAXIS amlodipine Adverse Reaction (Mild, Verified 09/16/24 09:56) Edema Medication List - Last Reconciled 09/16/24 by Kaitlyn Bowman MD acetaminophen 325 mg PO ONCE PRN 90 days allopurinol 100 mg PO DAILY 90 days atenolol 50 mg PO BID 90 days atorvastatin 40 mg PO DAILY 90 days blood pressure monitor Check blood pressure daily or as needed losartan 50 mg PO BID 90 days multivitamin 1 tab PO QAM 90 days spironolactone 25 mg PO DAILY [Velcro back belt As directed] Tobacco use date assessed: 09/16/24 Fall risk assessment: No Falls in past year Last assessed Fall Risk: 09/16/24 Dental Screening Dental Screen Date: 09/16/24 Did you have a dental visit in the last 12 months?: Yes Did you have a dental problem in the last 6 months where you did not have access to dental care?: No Was dental information given to patient?: Patient has dentist HPI Cataract surgery RT Eye HPI Details History - The patient is a 79-year-old male pres enting for preoperative evaluation for cataract surgery. - The planned cataract surgery is schedu led for September 22, 2024, at [facility]. - Previously underwent cataract surgery on the left eye, with the upcoming surgery planned for the right eye. - Blood pressure is within the normal ra nge and well-controlled at a value of 120/72 mmHg. - The patient's hemoglobin level has bee n noted to be slightly less than normal at 11.7 g/dL, need a follow-up labs - Patient denies experiencing symptoms s uch as nausea, vomiting, stomach ache, or diarrhea. - The patient has been informed about th e cataract surgery details, which will involve local anesthetic administration. Problem List - Preoperative evaluation for cataract s urgery - Anemia - Essential Hypertension Patient Instructions - Continue taking current medications: a torvastatin 40 mg, losartan 50 mg, and spironolactone as prescribed. - Arrange to have repeat blood tests don e to re-evaluate hemoglobin levels prior to surgery. - Attend the scheduled cataract surgery on September 22, 2024, at [facility]. - Follow all preoperative instructions p rovided by the surgical team, including arrival at 7:15 AM on the day of surgery. Patient is stable for right cataract surgery Review of Systems - General: No fever no chills - Neurological: No headaches no dizziness - Ear nose throat: No sore throat no hearing difficulty no ear pain - Cardiovascular: No syncope, no chest pain, no palpitations - Gastrointestinal: No nausea vomiting or diarrhea - Endocrine: No polyuria polydipsia no heat intolerance - Genitourinary: No dysuria , no blood in urine Physical Exam General: No acute distress HEENT: No acute findings Neck: Supple Respiratory system: Able to talk in full sentences, no audible wheeze Cardiovascular: S1-S2 regular in rate and rhythm, blood pressure 120/72 Gastrointestinal: No pain Extremities: No new findings EXECUTIVE RELATIONS SPECIALIST: Alert awake oriented x3 motor sensory intact Skin: Normal turgor [facility] Medical History Contusion of right hip Hyperlipidemia Hypertension Surgical History History of surgery of head Hx of esophagogastroduodenoscopy Hx of colonoscopy H/O hemorrhoidectomy Social History Household Members: Spouse Housing: Apartment Are you a primary customer care assistant to a significant other at home: No Do you presently have visiting nurse or other home services: No Alcohol intake: never Patient Tobacco Use Status: Never used Tobacco e-Cigarette/Vaping Use: Never Used service: No Current occupational status: unemployed Cognitive needs: No Hearing needs: No Vision needs: No Questionnaire PHQ-9 Over the last 2 weeks, how often have you been bothered by any of the following problems? 1. Little interest or pleasure in doing things: not at all 2. Feeling down, depressed, or hopeless: not at all 3. Trouble falling or staying asleep, or sleeping too much: not at all 4. Feeling tired or having little energy: not at all 5. Poor appetite or overeating: not at all 6. Feeling bad about yourself - or that you are a failure or have let yourself or your family down: not at all 7. Trouble concentrating on things, such as reading the newspaper or watching television: not at all 8. Moving or speaking so slowly that other people could have noticed. Or the opposite - being so fidgety or restless that you have been moving around a lot more than usual: not at all 9. Thoughts that you would be better off or of hurting yourself in some way: not at all Total score: 0 Depression Screening Interpretation: Negative Depression Screening Done: Yes 35937 - PHQ-9 Billing: Yes Source: Developed by Drs. Solomon Talamantes, Margarita Em, Rudi Vinson and colleagues, with an educational katie from [employer]. Thrive Questionnaire Date Thrive assessed: 09/16/24 I am a: Patient What is your living situation today?: I have a steady place to live Within the past 12 months, did the food you bought not last and you didn't have the money to get more?: Never true Within the past 12 months, did you worry whether your food would run out before you got money to buy more?: Never true Do you have trouble paying for medicines?: No Do you have trouble getting transportation to medical appointments?: No Do you have trouble paying your heating and electricity bill?: Yes Do you have trouble taking care of your child, family member or friend?: Yes Do you have trouble with day-to-day activities such as bathing, preparing meals, shopping, managing finances, etc.?: Yes Are you currently unemployed and looking for a job?: Yes Are you interested in more education?: Yes Please select the resources that you would like help with: Transportation and Job search/training Currently or been in a relationship where the following occur: No concerns reported THRIVE Score: 1 AUDIT C Alcohol Use Questionnaire (AUDIT-C) 1. How often do you have a drink containing alcohol?: Never 3. How often do you have six or more drinks on one occasion?: Never Total Score: 0 Score Reviewed/Action Taken: Yes EUGENE-7 AMB Questionnaire EUGENE-7 Date EUGENE - 7 assessed: 09/16/24 Feeling nervous, anxious, or on edge: 3 = Nearly every day Not being able to stop or control worryin = Not at all Worrying too much about different things: 0 = Not at all Trouble relaxin = Not at all Being so restless that it is hard to sit still: 0 = Not at all Becoming easily annoyed or irritable: 0 = Not at all Feeling afraid as if something awful might happen: 0 = Not at all Total EUGENE-7 score (0-4 normal; 5-9 mild; 10-14 moderate; 15-21 severe): 3 Source: Developed by Drs. Solomon Talamantes, Margarita Em, Rudi Vinson and colleagues, with an educational katie from [employer]. EUGENE-7 Assessment Billing EUGENE-7 Assessment Tool: EUGENE-7 Assessment 04878 Physical exam (Primary Care) Vital Signs: Last Vital Signs Pulse 70 09/16/24 09:55 BP 120/72 09/16/24 09:55 Pulse Ox 97 09/16/24 09:55 Oxygen Delivery Method Room Air 09/16/24 09:55 BMI result Body Mass Index 27.1 Tobacco/Smoking Status: Tobacco use Status Tobacco use date assessed 09/16/24 09/16/24 09:59 Patient Tobacco Use Status Never used Tobacco 09/16/24 09:59 e-Cigarette/Vaping Use Never Used 09/16/24 09:59 PHQ-9: PHQ-9 Score PHQ-9: Total score 0 09/16/24 09:59 Depression Screening Interpretation: Negative Thrive Assessment: Date of Thrive Assessment Date Thrive assessed 09/16/24 09/16/24 09:59 Currently or been in a relationship where the following occur: No concerns reported Coding Level of Care Code Est Pt Level 4 (49450) Diagnoses Pre-op evaluation Z01.818 Other age-related cataract of both eyes H25.89 Cataract type: age-related Age-related cataract type: other Hypertension, essential I10 Anemia in other chronic diseases classified elsewhere D63.8 Anemia type: other cause Other causes of anemia: chronic disease, other Additional Codes EUGENE-7 Assessment Billing - EUGENE-7 Assessment Tool: EUGENE-7 Assessment 48888 ([id number]) PHQ-9 - 05851 - PHQ-9 Billing: Yes ([id number]) Assessment & Plan Assessment & Plan (1) Pre-op evaluation: Code(s): Z01.818 - Encounter for other preprocedural examination Category: Medical (2) Cataract, bilateral: Code(s): H26.9 - Unspecified cataract Category: Medical Qualifiers: Cataract type: age-related Age-related cataract type: other Qualified Code(s): H25.89 - Other age-related cataract (3) Hypertension, essential: Code(s): I10 - Essential (primary) hypertension Category: Medical (4) Anemia: Code(s): D64.9 - Anemia, unspecified Category: Medical Qualifiers: Anemia type: other cause Other causes of anemia: chronic disease, other Qualified Code(s): D63.8 - Anemia in other chronic diseases classified elsewhere Plan History - The patient is a 79-year-old male presenting for preoperative evaluation for cataract surgery. - The planned cataract surgery is scheduled for September 22, 2024, at [facility]. - Previously underwent cataract surgery on the left eye, with the upcoming surgery planned for the right eye. - Blood pressure is within the normal range and well-controlled at a value of 120/72 mmHg. - The patient's hemoglobin level has been noted to be slightly less than normal at 11.7 g/dL, need a follow-up labs - Patient denies experiencing symptoms such as nausea, vomiting, stomach ache, or diarrhea. - The patient has been informed about the cataract surgery details, which will involve local anesthetic administration. Problem List - Preoperative evaluation for cataract surgery - Anemia - Essential Hypertension Patient Instructions - Continue taking current medications: atorvastatin 40 mg, losartan 50 mg, and spironolactone as prescribed. - Arrange to have repeat blood tests done to re-evaluate hemoglobin levels prior to surgery. - Attend the scheduled cataract surgery on September 22, 2024, at [facility]. - Follow all preoperative instructions provided by the surgical team, including arrival at 7:15 AM on the day of surgery. Patient is stable for right cataract surgery
--- OUTSIDE RECORDS SUMMARY | 2024-09-16 10:09 | XMS_ITS ---
Author Name [facility] Organization Unknown Encounters Encounter Type Encounter Reason Primary Diagnosis Location Date Inpatient Traumatic subdur al hemorrhage with loss of consciousness of unspecified duration, initial encounter [facility] 02/23/2021 Care Team Organization Name Specialty Phone Email Start Date End Da te [facility] 02/23/2021 12/14/2023 [facility] 02/23/2021 02/23/2021
== END 2024-09-16 10:42 | disposition home or self-care (01) ==
LOC: HO.HMCC 09:54
PROVIDERS: PCP Internal Medicine; Visit Provider Internal Medicine
DX: Z01.818 Encounter for other preprocedural examination (principal); H25.89 Other age-related cataract; I10 Essential (primary) hypertension; D63.8 Anemia in other chronic diseases classified elsewhere

== ENCOUNTER → 2024-09-16 09:53 | Outpatient (BNVA) | payer OTHER, SELFPAY | PROVIDERS: PCP Internal Medicine; Visit Provider Internal Medicine | DX: Z01.818 Encounter for other preprocedural examination (principal); H25.89 Other age-related cataract; I10 Essential (primary) hypertension; D64.9 Anemia, unspecified; Z13.30 Encounter for screening examination for mental health and behavioral disorders, unspecified | CPT/HCPCS: 96127; 99212 ==

== ENCOUNTER 2024-09-26 | Outpatient (REF) | payer OTHER, SELFPAY ==
--- OUTSIDE RECORDS SUMMARY | 2024-10-25 08:34 | XMS_ITS ---
Author Name [facility] Organization Unknown Encounters Encounter Type Encounter Reason Primary Diagnosis Location Date Inpatient Traumatic subdur al hemorrhage with loss of consciousness of unspecified duration, initial encounter [facility] 02/23/2021 Care Team Organization Name Specialty Phone Email Start Date End Da te [facility] 02/23/2021 12/14/2023 [facility] 02/23/2021 02/23/2021
--- OUTSIDE RECORDS SUMMARY | 2024-10-25 08:34 | XMS_ITS | Clinical Summary ---
Author Organization [facility] Address [address] [place] [address] Care Team Providers Care Timber Estimator Name Role Phone Unknown Primary Care Provider [...] 72 02/26/2021 1:14 PM EDT Temperature 35.8 C (96.4 F) 02/26/2021 1:14 PM EDT Respiratory Rate 20 02/26/2021 1:14 PM EDT [...] patient's age to complete this topic Insurance [facility] Advance Directives * Full Code (Latest Code Status on File) Date Activated Date Inactivated Comments 02/24/2021 4:13 PM * Full Code Date Activated Date Inactivated Comments 02/23/2021 8:01 PM 02/24/2021 4:13 PM Care Teams Timber Estimator Relationship Specialty Start Date End Date Unknown Unknow Provider Address PCP - General 02/23/21
== END 2024-09-26 00:01 | disposition home or self-care (01) ==
LOC: CF
PROVIDERS: PCP Internal Medicine; Visit Provider Internal Medicine Cardiovascular Disease
DX: I10 Essential (primary) hypertension (principal); Z79.899 Other long term (current) drug therapy
CPT/HCPCS: 99212

== ENCOUNTER 2024-09-26 14:41 | Outpatient (AMB) | payer OTHER, SELFPAY ==
--- NOTE | 2024-09-26 14:51 | MHC.OFFVIS ---
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 Required: No Accompanied by: Self / Same As Patient Allergies Sulfa (Sulfonamide Antibiotics) [SULFA (SULFONAMIDE ANTIBIOTICS)] Allergy (Severe, Verified 09/16/24 09:56) ANAPHYLAXIS amlodipine Adverse Reaction (Mild, Verified 09/16/24 09:56) Edema Medication List - Last Reconciled 09/26/24 by Calixto Heller MD acetaminophen 325 mg PO ONCE PRN 90 days allopurinol 100 mg PO DAILY 90 days atenolol 50 mg PO BID 90 days atorvastatin 40 mg PO DAILY 90 days blood pressure monitor Check blood pressure daily or as needed losartan 50 mg PO BID 90 days multivitamin 1 tab PO QAM 90 days spironolactone 25 mg PO DAILY [Velcro back belt As directed] HPI Comments Details: [age] year gentleman with background history of hypertension. He had subdural hematoma in the past and had surgery in [facility]. He follows with GI closely. He has no symptoms currently. Denying chest discomfort shortness of breath. He previously had some palpitations in the past but nothing recently. He is active and walks regularly without any exertional symptoms. Blood pressure is elevated. He is taking atenolol 50 mg twice a day and losartan 50 mg twice a day. He had not tolerated hydrochlorothiazide and had some diarrhea due to that. Amlodipine previously was tried and he could not tolerate it due to peripheral edema. 09/26/2024: He is here for follow-up. On last visit we added spironolactone because his blood pressure was elevated. He is saying blood pressure has improved significantly. He was getting some headaches which have improved 2. His blood pressure in the office currently is low 100/60. On occasions she has noticed lightheadedness with standing up. [facility], [facility] Medical History (Updated 09/26/24 @ 15:26 by Calixto Heller MD) Contusion of right hip Hyperlipidemia Hypertension Surgical History History of surgery of head Hx of esophagogastroduodenoscopy Hx of colonoscopy H/O hemorrhoidectomy Social History Household Members: Spouse Housing: Apartment Are you a primary tire care manager to a significant other at home: No Do you presently have visiting nurse or other home services: No Alcohol intake: never Patient Tobacco Use Status: Never used Tobacco e-Cigarette/Vaping Use: Never Used service: No Current occupational status: unemployed Cognitive needs: No Hearing needs: No Vision needs: No Review of Systems Const Denies chills, Denies fatigue, Denies fever(s), Denies frequent falls, Denies weakness, Denies weight gain and Denies weight loss ENT Denies dizziness Card Denies chest pain, Denies leg edema, Denies lightheadedness, Denies palpitations, Denies dyspnea and Denies dyspnea on exertion Resp Denies cough, Denies dyspnea and Denies dyspnea on exertion GI Denies hematochezia Musc Denies abnormal gait, Denies muscle weakness, Denies numbness, Denies radiating pain into limb and Denies tingling Neuro Denies abnormal gait, Denies dizziness, Denies frequent falls, Denies numbness, Denies tingling and Denies weakness Endo Denies fatigue and Denies palpitations Physical Exam Vital Signs: Last Vital Signs Pulse 66 09/26/24 14:54 BP 100/60 09/26/24 14:54 BMI result Body Mass Index 26.5 GENERAL APPEARANCE: in no acute distress, pleasant. NECK: no carotid bruit, no jugular venous distention. SKIN: no suspicious lesions, warm and dry. HEART: no murmurs, regular rate and rhythm. LUNGS: clear to auscultation bilaterally. ABDOMEN: soft, nontender. EXTREMITIES: no edema. PERIPHERAL PULSES: equal. NEUROLOGIC: No gross deficits, AAO X 3 Assessment & Plan Assessment & Plan (1) Hypertension: Code(s): I10 - Essential (primary) hypertension Category: Medical Plan Pleasant 79 year gentleman who is here for follow-up. He has background history of hypertension. He was on losartan 50 mg twice a day and atenolol 50 mg twice a day. His blood pressure was elevated and we added spironolactone 25 mg daily. His potassium after starting spironolactone was 4.1. He has noticed some lightheadedness at home. His blood pressure is 100/60 currently. I have advised him to decrease the atenolol to 50 mg once a day (was taking previously b.i.d..). He will continue spironolactone and losartan as before. Follow up with us in 6 months. Thank you for allowing me to participate in the care of your patient. Please feel free to contact me if you have any questions. Medications: Changed From atenolol 50 mg PO BID 90 days 180 tabs 0RF I10 - Essential (primary) hypertension To atenolol 50 mg PO Q24H 90 tabs 3RF 90 days I10 - Essential (primary) hypertension Coding Level of Care Code Est Pt Level 3 (20567) Diagnoses Hypertension I10
[2024-09-26 14:54] VITALS: BP 100/60; PULSE 66; BMI 26.5
== END 2024-09-26 16:01 | disposition home or self-care (01) ==
LOC: HO.HCS 14:42
PROVIDERS: PCP Internal Medicine; Visit Provider Internal Medicine Cardiovascular Disease
DX: I10 Essential (primary) hypertension (principal)
CPT/HCPCS: 99213

== ENCOUNTER 2024-10-26 08:13 | Outpatient (AMB) | payer OTHER, SELFPAY ==
--- OUTSIDE RECORDS SUMMARY | 2024-10-26 08:16 | XMS_ITS | Clinical Summary ---
Author Organization [facility] Address [address] [place] [address] Care Team Providers Care Md Psychiatry Name Role Phone Unknown Primary Care Provider [...] patient's age to complete this topic Insurance [facility] Advance Directives * Full Code (Latest Code Status on File) Date Activated Date Inactivated Comments 02/24/2021 4:13 PM * Full Code Date Activated Date Inactivated Comments 02/23/2021 8:01 PM 02/24/2021 4:13 PM Care Teams Md Psychiatry Relationship Specialty Start Date End Date Unknown Unknow Provider Address PCP - General 02/23/21
--- NOTE | 2024-10-26 08:27 | MHC.OFFWIV ---
Intake Vital Signs 10/26/24 08:28 Height 5 ft 10 in BMI Reason not done Patient refused/unable BP 112/60 Blood Pressure Location Rt brachial Position Sitting Pulse 100 Pulse Source Pulse Oximeter Temp 99.6 F Temp Source Oral Pulse Oximetry (%) 97 Oxygen Delivery Method Room Air Intake Visit Reasons: EP Body pain, cough Intake Note: presents with body aches, throat ache, non productive cough, fever, watery eyes- s/s began last night Patient Tobacco Use Status: Never used Tobacco Allergies Sulfa (Sulfonamide Antibiotics) (SULFA (SULFONAMIDE ANTIBIOTICS)) Allergy (Severe, Verified 10/26/24 08:29) ANAPHYLAXIS amlodipine Adverse Reaction (Mild, Verified 10/26/24 08:29) Edema Do you need a note to return to daycare/school/sports/work: No HPI HPI Comments History of Present Illness Details History - The patient is a 79-year-old male presenting with symptoms of an upper respiratory infection. - Symptoms began the previous evening, including cough, mild headache, and sleep disturbance due to coughing. - Reports watery eyes and occasional sneezing, suggestive of seasonal allergies, but does not take allergy medication. - No significant shortness of breath or wheezing, but reports feeling slightly febrile and experiencing chills. - He has not tried to take any OTC medications to treat his symptoms Physical Exam General: Cooperative, healthy appearing, comfortable and no acute distress Orientation/consciousness: Patient oriented x3 Limitations: No limitations Head: Normal to inspection Ears: Hearing grossly normal bilaterally, external ears normal and TM's normal bilaterally Nose: Normal external nose present, Normal nares present and No nasal discharge present Face and sinus: Normal facial exam and Yes sinuses nontender Mouth: Normal oral and palatal mucosa present and moist mucous membranes Throat: Yes tonsils normal, Yes uvula midline. Posterior oropharynx erythema, no exudates Eyes: Appearance normal, both eyes and all related structures Neck: Normal visual inspection, full ROM Respiratory: Clear to auscultation bilaterally. Normal respiratory effort, able to speak in complete sentences, Actively coughing, no respiratory distress, not tachypneic, no tripod positioning and no use of accessory muscles Cardiovascular: Regular rate and rhythm. Normal S1 and S2 Skin: No rashes or lesions noted Neuro: Patient oriented x3 Extremities: Normal to inspection and Yes no clubbing, cyanosis or edema [facility] Medical History (Updated 09/26/24 @ 15:26 by Calixto Heller MD) Contusion of right hip Hyperlipidemia Hypertension Surgical History History of surgery of head Hx of esophagogastroduodenoscopy Hx of colonoscopy H/O hemorrhoidectomy Social History Household Members: Spouse Housing: Apartment Are you a primary careers adviser to a significant other at home: No Do you presently have visiting nurse or other home services: No Alcohol intake: never Patient Tobacco Use Status: Never used Tobacco e-Cigarette/Vaping Use: Never Used service: No Current occupational status: unemployed Cognitive needs: No Hearing needs: No Vision needs: No Review of Systems Const All systems reviewed & are unremarkable except as noted in HPI and below Physical Exam Vital Signs: Last Vital Signs Temp 99.6 F 10/26/24 08:28 Pulse 100 10/26/24 08:28 BP 112/60 10/26/24 08:28 Pulse Ox 97 10/26/24 08:28 Oxygen Delivery Method Room Air 10/26/24 08:28 Results AMB Rapid Strep AMB Rapid Strep Negative Last Edit by Juan C Kovacs CMA on 10/26/24 08:42 Assessment & Plan Assessment & Plan (1) URI, acute: Code(s): J06.9 - Acute upper respiratory infection, unspecified Plan: - VSS, pt well appearing and PE unremarkable. - Rapid strep negative. - Prescribed a cough suppressant pill to be taken before bed to alleviate coughing and improve sleep quality. - Recommended [id number] Mitzy D for allergy and congestion management. - Advised to monitor symptoms and follow up if they worsen or do not improve. - COVID-19, flu, and RSV tests conducted; results to be communicated later today. Patient was informed and verbally consented to the use of an ambient scribe for clinic note documentation during this visit Orders: Orders AMB Rapid Strep Screen Today Z13.9 - Encounter for screening, unspecified SARS-CoV2/FLU/RSV Today R09.89 - Other specified symptoms and signs involving the circulatory and respiratory systems Medications: New benzonatate 200 mg PO BEDTIME PRN 10 caps 0RF cough Coding Level of Care Code Est Pt Level 3 (13772) Diagnoses URI, acute J06.9
[2024-10-26 08:28] VITALS: BP 112/60; PULSE 100; TEMP 37.6; O2SAT 97
== END 2024-10-26 08:54 | disposition home or self-care (01) ==
PROVIDERS: PCP Internal Medicine; Visit Provider Physician Assistant
DX: J06.9 Acute upper respiratory infection, unspecified (principal); Z13.9 Encounter for screening, unspecified

== ENCOUNTER 2024-10-26 08:13 | Outpatient (REF) | payer OTHER, SELFPAY ==
[2024-10-26 11:13] LABS: Resp Syncy Virus RNA Qual PCR NEGATIVE (Negative); SARS COV2 PCR INHOUSE POSITIVE (Negative)
== END 2024-10-26 08:14 | disposition home or self-care (01) ==
LOC: HO.LAB 08:13
PROVIDERS: PCP Internal Medicine; Visit Provider Physician Assistant
DX: J06.9 Acute upper respiratory infection, unspecified (principal); R05.9 Cough, unspecified; R09.89 Other specified symptoms and signs involving the circulatory and respiratory systems
CPT/HCPCS: 87637; 87880; 99212

== ENCOUNTER 2024-11-16 09:53 | Outpatient (REF) | payer OTHER, SELFPAY ==
--- OUTSIDE RECORDS SUMMARY | 2024-11-16 10:38 | XMS_ITS | Clinical Summary ---
Author Organization [facility] Address [address] [place] [address] Care Team Providers Care [employer] Fe[employer] Name Role Phone Unknown Primary Care Provider [...] patient's age to complete this topic Insurance [facility] Advance Directives * Full Code (Latest Code Status on File) Date Activated Date Inactivated Comments 02/24/2021 4:13 PM * Full Code Date Activated Date Inactivated Comments 02/23/2021 8:01 PM 02/24/2021 4:13 PM Care Teams [employer] Relationship Specialty Start Date End Date Unknown Unknow Provider Address PCP - General 02/23/21
[2024-11-16 13:54] LABS: Anion Gap 12 (12-20); Blood Urea Nitrogen 32 mg/dL (9-16); Calcium 9.1 mg/dL (8.4-10.2); Carbon Dioxide 20 mmol/L (22-29); Chloride 112 mmol/L (96-108); Estimated Glomerular Filt Rate 56; Potassium 4.5 mmol/L (3.3-5.1); Sodium 139 mmol/L (135-145)
== END 2024-11-16 09:54 | disposition home or self-care (01) ==
LOC: HO.HMGCLDS 09:53
PROVIDERS: PCP Internal Medicine; Visit Provider Internal Medicine Cardiovascular Disease
DX: I10 Essential (primary) hypertension (principal)
CPT/HCPCS: 36415; 80048

== ENCOUNTER 2024-11-23 13:01 | Outpatient (AMB) | payer OTHER, SELFPAY ==
--- OUTSIDE RECORDS SUMMARY | 2024-11-23 13:35 | XMS_ITS | Clinical Summary ---
Author Organization [facility] Address [address] [place] [address] Care Team Providers Care [employer] Name Role Phone Unknown Primary Care Provider [...] patient's age to complete this topic Insurance [facility] Advance Directives * Full Code (Latest Code Status on File) Date Activated Date Inactivated Comments 02/24/2021 4:13 PM * Full Code Date Activated Date Inactivated Comments 02/23/2021 8:01 PM 02/24/2021 4:13 PM Care Teams [employer] Relationship Specialty Start Date End Date Unknown Unknow Provider Address PCP - General 02/23/21
[2024-11-23 13:43] VITALS: BP 89/48; PULSE 72; TEMP 36.9; O2SAT 99; BMI 26.6
--- NOTE | 2024-11-23 13:43 | AM.OFFWIN_ITS ---
Intake Vital Signs 11/23/24 13:43 Height 5 ft 10 in Weight 185 lb 4 oz BMI 26.6 BP 89/48 L Blood Pressure Location Rt brachial Position Sitting Pulse 72 Pulse Source Pulse Oximeter Temp 98.5 F Temp Source Oral Pulse Oximetry (%) 99 Oxygen Delivery Method Room Air Intake Visit Reasons: EP rash on RT side of neck Patient Tobacco Use Status: Never used Tobacco [employer] Member Required: No Allergies Sulfa (Sulfonamide Antibiotics) (SULFA (SULFONAMIDE ANTIBIOTICS)) Allergy (Severe, Verified 11/23/24 13:49) ANAPHYLAXIS amlodipine Adverse Reaction (Mild, Verified 11/23/24 13:49) Edema Do you need a note to return to daycare/school/sports/work: No HPI HPI Comments History of Present Illness Details History - The patient is a 79-year-old male pres enting with a rash around the neck and low blood pressure. Rash - Rash around the neck started with a bu rning sensation at the site of a mole and is accompanied by mild itching. - He states that he has been itchy. - He has not tried anything for the rash . - He denies bug bites, new lotions, soap s, detergents, medications, foods, travel, or exposures. - He has no fever or chills. - He denies joint pain. Low blood pressure - He has been having low blood pressure. - He was seen by the attorney general in [facility] for the same thing. - He was taking atenolol 50 mg BID and i t was decreased to once a day. - He continued with the spironolactone a nd losartan 50 mg BID. - The patient reports dizziness associat ed with the low blood pressure. - The patient has a history of upset sto mach linked to atorvastatin, which improved upon discontinuation of the medication. - He states that he has no associated ch est pain, weakness, leg edema, bleeding, PISANO Physical Exam General: Cooperative, healthy appearing, comfortable, no acute distress and well developed Orientation: Patient oriented x3 Limitations: No limitations Mouth: normal, moist oral mucosa Neck: No lymphadenopathy noted. Respiratory: Normal respiratory effort and able to speak in complete sentences. Clear to auscultation bilaterally. No w/r/r noted. Cardiovascular: RRR, no m/r/g noted. Normal S1 and S2 Skin: Erythema noted on the right lateral neck. Single hyperpigmented rough lesion noted on the neck. Patient was informed and verbally consented to the use of an ambient scribe for clinic note documentation during this visit [facility] Medical History (Updated 09/26/24 @ 15:26 by Calixto Heller MD) Contusion of right hip Hyperlipidemia Hypertension Surgical History History of surgery of head Hx of esophagogastroduodenoscopy Hx of colonoscopy H/O hemorrhoidectomy Social History Household Members: Spouse Housing: Apartment Are you a primary skin care consultant to a significant other at home: No Do you presently have visiting nurse or other home services: No Alcohol intake: never Patient Tobacco Use Status: Never used Tobacco e-Cigarette/Vaping Use: Never Used service: No Current occupational status: unemployed Cognitive needs: No Hearing needs: No Vision needs: No Review of Systems Const All systems reviewed & are unremarkable except as noted in HPI and below Physical Exam Vital Signs: Last Vital Signs Temp 98.5 F 11/23/24 13:43 Pulse 72 11/23/24 13:43 BP 89/48 L 11/23/24 13:43 Pulse Ox 99 11/23/24 13:43 Oxygen Delivery Method Room Air 11/23/24 13:43 BMI result Body Mass Index 26.6 Assessment & Plan Assessment & Plan (1) Rash: Code(s): R21 - Rash and other nonspecific skin eruption (2) Hypotension: Code(s): I95.9 - Hypotension, unspecified Qualifiers: Hypotension type: hypotension due to drug Qualified Code(s): I95.2 - Hypotension due to drugs Plan Most likely dermatitis vs eczema vs keratosis plan - Prescribed topical cream for the rash. - can refer to derm if needed Most likely due to his medication plan - Adjusted medication regimen to reduce losartan and atenolol to once daily. - Advised to monitor blood pressure at home and report if symptoms persist. - f/u with cardiology - f/u with PCP Medications: New hydrocortisone 2.5% 1 appl topical BID PRN 30 grams 0RF Skin Irritation Coding Level of Care Code Est Pt Level 4 (50695) Diagnoses Rash R21 Hypotension due to drugs I95.2 Hypotension type: hypotension due to drug
== END 2024-11-23 15:12 | disposition home or self-care (01) ==
PROVIDERS: PCP Internal Medicine; Visit Provider Physician Assistant Medical
DX: R21 Rash and other nonspecific skin eruption (principal); I95.2 Hypotension due to drugs

== ENCOUNTER → 2024-11-23 13:01 | Outpatient (BNVA) | payer OTHER, SELFPAY | PROVIDERS: PCP Internal Medicine; Visit Provider Physician Assistant Medical | DX: R21 Rash and other nonspecific skin eruption (principal); I95.2 Hypotension due to drugs; T50.905A Adverse effect of unspecified drugs, medicaments and biological substances, initial encounter; Y92.9 Unspecified place or not applicable | CPT/HCPCS: 99212 ==

== ENCOUNTER 2025-01-10 14:24 | Outpatient (AMB) | payer OTHER, SELFPAY ==
[2025-01-10 14:29] VITALS: BP 100/60; PULSE 77; O2SAT 97; BMI 26.4
--- NOTE | 2025-01-10 14:29 | A.OFFPC_ITS ---
Vital Signs 01/10/25 14:29 Height 5 ft 10 in Weight 184 lb BMI 26.4 BP 100/60 Blood Pressure Location Lt brachial Position Sitting Pulse 77 Pulse Source Pulse Oximeter Pulse Oximetry (%) 97 Oxygen Delivery Method Room Air Intake Visit Reasons: Annual PE Allergies Sulfa (Sulfonamide Antibiotics) (SULFA (SULFONAMIDE ANTIBIOTICS)) Allergy (Severe, Verified 01/10/25 14:29) ANAPHYLAXIS amlodipine Adverse Reaction (Mild, Verified 01/10/25 14:29) Edema Medication List - Last Reconciled 01/10/25 by Kaitlyn Bowman MD acetaminophen 325 mg PO ONCE PRN 90 days allopurinol 100 mg PO DAILY 90 days atenolol 50 mg PO Q24H 90 days [bath mat As directed] blood pressure monitor Check blood pressure daily or as needed cholecalciferol (vitamin D3) 25 mcg PO DAILY 90 days hydrocortisone 2.5% 1 appl topical BID PRN losartan 50 mg PO ONCE multivitamin 1 tab PO QAM 90 days rosuvastatin 5 mg PO .q48 [shower chair As directed] spironolactone 25 mg PO DAILY [Velcro back belt As directed] Tobacco use date assessed: 09/16/24 Fall risk assessment: No Falls in past year Last assessed Fall Risk: 01/10/25 Dental Screening Dental Screen Date: 09/16/24 HPI Annual PE HPI Details PE The patient is a 79-year-old male presenting with blood pressure management and medication adjustment. Essential Hypertension: - Blood pressure measured at 100/60 mmHg during this visit, noted to be low. - Currently on atenolol 50 mg, atenolol needs to be reduced due to low blood pressure. - Losartan was previously mentioned but not being taken; replaced by another medication. - Spironolactone 25 mg is part of his an tihypertensive regimen. - Blood pressure variability discussed; atenolol dosage reduced to 25 mg. Gout: - On chronic allopurinol therapy for gou t prevention. - No acute gouty attacks reported during the visit. Dyslipidemia: - On rosuvastatin 5 mg for lipid control . - Most recent LDL reported as 68 mg/dL. - Previous cholesterol issues resolved w ith current therapy. Compromised Renal Function: - GFR of 56 reported in October, indicating mild renal impairment. - Metabolic profile showed stable electr olytes. - No acute concerns raised about kidney function during this visit. Medical History: - Essential Hypertension - Gout - Dyslipidemia - Compromised Renal Function Social History: - Experiences dizziness, impacting ambul ation; relates to low blood pressure. - No difficulty with bathing, dressing, or cooking. - Expressed help in managing some daily activities. Health Maintenance - Colonoscopy conducted in July 2020, r eported as completed. - Labs done in April showed a hemoglob in of 11.7 g/dL. - Regular monitoring of cholesterol and kidney function is ongoing. Treichlers of Care - Under the care of Dr. Heller, Cardiol ogist. Medications - Atenolol 50 mg for essential hypertens ion (to be reduced to 25 mg) - Spironolactone 25 mg for hypertension management - Allopurinol for gout prevention - Rosuvastatin 5 mg for dyslipidemia man agement Diagnostic results - Labs: Hemoglobin 11.7 g/dL (April), GFR 56 (October), LDL 68 mg/dL. - Tests and diagnostics: Colonoscopy (2020) Patient Instructions - Adjust atenolol dosage to 25 mg from 5 0 mg for better blood pressure management. - Continue taking spironolactone as pres cribed. - Maintain the current regimen of rosuva statin and allopurinol. - Monitor blood pressure regularly and r eport dizziness or changes. Follow-up 3 months Review of Systems - General: No fever no chills - Neurological: No headaches no dizzin ess - Ear nose throat: No sore throat no hearing difficulty no ear pain - Cardiovascular: No syncope, no chest pain, no palpitations - Gastrointestinal: No nausea vomiting or diarrhea - Endocrine: No polyuria polydipsia no heat intolerance - Genitourinary: No dysuria - Skin: No new complaints Physical Exam General: Cooperative, healthy appearing, comfortable, no acute distress Orientation: Patient oriented x3 Head: Normal to inspection Ears: Within normal limit visually, advised to apply a little olive oil in the ear Nose: Normal external nose present Face and sinus: Normal facial exam Eyes: Appearance normal, extraocular movement intact pupils reactive Neck: Normal visual inspection and supple Respiratory: Normal respiratory effort and able to speak in complete sentences. Clear to auscultation, no stridor Cardiovascular: S1 and S2 RRR, blood pressure is 100/60 GI: Normal to inspection. Soft to palpation and nontender Skin: Turgor normal, no acute findings Neuro: Patient oriented x3, motor intact, balance intact, tandem failed Extremities: Normal to inspection [facility] Medical History Contusion of right hip Hyperlipidemia Hypertension Surgical History History of surgery of head Hx of esophagogastroduodenoscopy Hx of colonoscopy H/O hemorrhoidectomy Social History Household Members: Spouse Housing: Apartment Are you a primary physician locums urgent care to a significant other at home: No Do you presently have visiting nurse or other home services: No Alcohol intake: never Patient Tobacco Use Status: Never used Tobacco e-Cigarette/Vaping Use: Never Used service: No Current occupational status: unemployed Cognitive needs: No Hearing needs: No Vision needs: No Questionnaire PHQ-9 Over the last 2 weeks, how often have you been bothered by any of the following problems? 1. Little interest or pleasure in doing things: not at all 2. Feeling down, depressed, or hopeless: more than half the days 3. Trouble falling or staying asleep, or sleeping too much: not at all 4. Feeling tired or having little energy: not at all 5. Poor appetite or overeating: more than half the days 6. Feeling bad about yourself - or that you are a failure or have let yourself or your family down: not at all 7. Trouble concentrating on things, such as reading the newspaper or watching television: not at all 8. Moving or speaking so slowly that other people could have noticed. Or the opposite - being so fidgety or restless that you have been moving around a lot more than usual: not at all 9. Thoughts that you would be better off or of hurting yourself in some way: not at all Total score: 4 Depression Screening Interpretation: Negative Depression Screening Done: Yes 46657 - PHQ-9 Billing: Yes Source: Developed by Drs. Solomon Talamantes, Margarita Em, Rudi Vinson and colleagues, with an educational katie from [employer]. Thrive Questionnaire Date Thrive assessed: 01/10/25 I am a: Patient What is your living situation today?: I do not have a steady places to live I am staying at a fci Within the past 12 months, did the food you bought not last and you didn't have the money to get more?: I choose not to answer this question Within the past 12 months, did you worry whether your food would run out before you got money to buy more?: Never true Do you have trouble paying for medicines?: No Do you have trouble getting transportation to medical appointments?: No Do you have trouble paying your heating and electricity bill?: No Do you have trouble taking care of your child, family member or friend?: No Do you have trouble with day-to-day activities such as bathing, preparing meals, shopping, managing finances, etc.?: Yes Are you currently unemployed and looking for a job?: No Are you interested in more education?: No Please select the resources that you would like help with: None Currently or been in a relationship where the following occur: No concerns rep orted THRIVE Score: 1 AUDIT C Alcohol Use Questionnaire (AUDIT-C) 1. How often do you have a drink containing alcohol?: Never 3. How often do you have six or more drinks on one occasion?: Never Total Score: 0 EUGENE-7 AMB Questionnaire EUGENE-7 Date EUGENE - 7 assessed: 09/16/24 Feeling nervous, anxious, or on edge: 3 = Nearly every day Not being able to stop or control worryin = Not at all Worrying too much about different things: 0 = Not at all Trouble relaxin = Not at all Being so restless that it is hard to sit still: 0 = Not at all Becoming easily annoyed or irritable: 0 = Not at all Feeling afraid as if something awful might happen: 0 = Not at all Total EUGENE-7 score (0-4 normal; 5-9 mild; 10-14 moderate; 15-21 severe): 3 Source: Developed by Drs. Solomon Talamantes, Margarita Em, Rudi Vinson and colleagues, with an educational katie from [employer]. EUGENE-7 Assessment Billing EUGENE-7 Assessment Tool: EUGENE-7 Assessment 20345 Physical exam (Primary Care) Vital Signs: Last Vital Signs Pulse 77 01/10/25 14:29 BP 100/60 01/10/25 14:29 Pulse Ox 97 01/10/25 14:29 Oxygen Delivery Method Room Air 01/10/25 14:29 BMI result Body Mass Index 26.4 Tobacco/Smoking Status: Tobacco use Status Tobacco use date assessed 09/16/24 01/10/25 14:34 Patient Tobacco Use Status Never used Tobacco 01/10/25 14:34 e-Cigarette/Vaping Use Never Used 01/10/25 14:34 PHQ-9: PHQ-9 Score PHQ-9: Total score 4 01/10/25 15:06 Depression Screening Interpretation: Negative Thrive Assessment: Date of Thrive Assessment Date Thrive assessed 01/10/25 01/10/25 14:34 Currently or been in a relationship where the following occur: No concerns reported Coding Level of Care Code Est Pt Level 4 (64391) Est Pt Prev Care >65y(48921) Diagnoses Encounter for general adult medical examination with abnormal findings Z00.01 Hypertension, essential I10 Lipid disorder E78.9 Vitamin D deficiency E55.9 Anemia in other chronic diseases classified elsewhere D63.8 Anemia type: other cause Other causes of anemia: chronic disease, other Gouty arthritis M10.9 Idiopathic peripheral neuropathy G60.9 Peripheral neuropathy type: idiopathic neuropathy, unspecified Additional Codes PHQ-9 - 08271 - PHQ-9 Billing: Yes ([id number]) EUGENE-7 Assessment Billing - EUGENE-7 Assessment Tool: EUGENE-7 Assessment 15703 ([id number]) Assessment & Plan Assessment & Plan (1) Encounter for general adult medical examination with abnormal findings: Code(s): Z00.01 - Encounter for general adult medical examination with abnormal findings Category: Medical (2) Hypertension, essential: Code(s): I10 - Essential (primary) hypertension Category: Medical (3) Lipid disorder: Code(s): E78.9 - Disorder of lipoprotein metabolism, unspecified Category: Medical (4) Vitamin D deficiency: Code(s): E55.9 - Vitamin D deficiency, unspecified Category: Medical (5) Anemia: Code(s): D64.9 - Anemia, unspecified Category: Medical Qualifiers: Anemia type: other cause Other causes of anemia: chronic disease, other Qualified Code(s): D63.8 - Anemia in other chronic diseases classified elsewhere (6) Gouty arthritis: Code(s): M10.9 - Gout, unspecified Category: Medical (7) Peripheral neuropathy: Code(s): G62.9 - Polyneuropathy, unspecified Category: Medical Qualifiers: Peripheral neuropathy type: idiopathic neuropathy, unspecified Qualified Code(s): G60.9 - Hereditary and idiopathic neuropathy, unspecified Plan PE The patient is a 79-year-old male presenting with blood pressure management and medication adjustment. Essential Hypertension: - Blood pressure measured at 100/60 mmHg during this visit, noted to be low. - Currently on atenolol 50 mg, atenolol needs to be reduced due to low blood pressure. - Losartan was previously mentioned but not being taken; replaced by another medication. - Spironolactone 25 mg is part of his antihypertensive regimen. - Blood pressure variability discussed; atenolol dosage reduced to 25 mg. Gout: - On chronic allopurinol therapy for gout prevention. - No acute gouty attacks reported during the visit. Dyslipidemia: - On rosuvastatin 5 mg for lipid control. - Most recent LDL reported as 68 mg/dL. - Previous cholesterol issues resolved with current therapy. Compromised Renal Function: - GFR of 56 reported in October, indicating mild renal impairment. - Metabolic profile showed stable electrolytes. - No acute concerns raised about kidney function during this visit. Medical History: - Essential Hypertension - Gout - Dyslipidemia - Compromised Renal Function Social History: - Experiences dizziness, impacting ambulation; relates to low blood pressure. - No difficulty with bathing, dressing, or cooking. - Expressed help in managing some daily activities. Health Maintenance - Colonoscopy conducted in July 2020, reported as completed. - Labs done in April showed a hemoglobin of 11.7 g/dL. - Regular monitoring of cholesterol and kidney function is ongoing. Treichlers of Care - Under the care of Dr. Heller, Fountain Brush Assembler. Medications - Atenolol 50 mg for essential hypertension (to be reduced to 25 mg) - Spironolactone 25 mg for hypertension management - Allopurinol for gout prevention - Rosuvastatin 5 mg for dyslipidemia management Diagnostic results - Labs: Hemoglobin 11.7 g/dL (April), GFR 56 (October), LDL 68 mg/dL. - Tests and diagnostics: Colonoscopy (July 2020) Patient Instructions - Adjust atenolol dosage to 25 mg from 50 mg for better blood pressure management. - Continue taking spironolactone as prescribed. - Maintain the current regimen of rosuvastatin and allopurinol. - Monitor blood pressure regularly and report dizziness or changes. Follow-up 3 months Orders: Orders Uric Acid Today M10.9 - Gout, unspecified Complete Blood Count Auto Diff Today D63.8 - Anemia in other chronic diseases classified elsewhere, E55.9 - Vitamin D deficiency, unspecified, E78.9 - Disorder of lipoprotein metabolism, unspecified, G60.9 - Hereditary and idiopathic neuropathy, unspecified, I10 - Essential (primary) hypertension, M10.9 - Gout, unspecified, Z00.01 - Encounter for general adult medical examination with abnormal findings Comprehensive Met. Panel Today D63.8 - Anemia in other chronic diseases classified elsewhere, E55.9 - Vitamin D deficiency, unspecified, E78.9 - Disorder of lipoprotein metabolism, unspecified, G60.9 - Hereditary and idiopathic neuropathy, unspecified, I10 - Essential (primary) hypertension, M10.9 - Gout, unspecified, Z00.01 - Encounter for general adult medical examination with abnormal findings Ferritin Today D63.8 - Anemia in other chronic diseases classified elsewhere, E55.9 - Vitamin D deficiency, unspecified, E78.9 - Disorder of lipoprotein metabolism, unspecified, G60.9 - Hereditary and idiopathic neuropathy, unspecified, I10 - Essential (primary) hypertension, M10.9 - Gout, unspecified, Z00.01 - Encounter for general adult medical examination with abnormal findings Vitamin D 25-OH (D2 and D3) Today D63.8 - Anemia in other chronic diseases classified elsewhere, E55.9 - Vitamin D deficiency, unspecified, E78.9 - Disorder of lipoprotein metabolism, unspecified, G60.9 - Hereditary and idiopathic neuropathy, unspecified, I10 - Essential (primary) hypertension, M10.9 - Gout, unspecified, Z00.01 - Encounter for general adult medical e xamination with abnormal findings Vitamin B12 Today D63.8 - Anemia in other chronic diseases classified elsewhere, E55.9 - Vitamin D deficiency, unspecified, E78.9 - Disorder of lipoprotein metabolism, unspecified, G60.9 - Hereditary and idiopathic neuropathy, unspecified, I10 - Essential (primary) hypertension, M10.9 - Gout, unspecified, Z00.01 - Encounter for general adult medical examination with abnormal findings TSH reflex Free T4 Today M10.9 - Gout, unspecified Medications: Changed From atenolol 50 mg PO Q24H 90 days 90 tabs 0RF I10 - Essential (primary) hypertension To atenolol 25 mg PO Q24H 90 tabs 0RF 90 days I10 - Essential (primary) hypertension From losartan 50 mg PO BID 90 days 180 tabs 1RF To losartan 50 mg PO ONCE
--- OUTSIDE RECORDS SUMMARY | 2025-01-10 18:08 | XMS_ITS | Clinical Summary ---
Author Organization [facility] Address [address] [place] [address] Care Team Providers Care Civilian Jail Officer Name Role Phone Unknown Primary Care Provider [...] Health Maintenance Due Date Last Done Comments Advance Care Planning 1945 Hepatitis C Virus Screening 1945 DTaP/Tdap/Td Vaccines (1 - Tdap) 1965 Pneumococcal Vaccines 50+ (1 of 1 - PCV) 1996 Zoster (Shingles) Vaccine (1 of 2) 1996 RSV Vaccine 60 years and old er and Patients (1 - 1-dose 75+ series) 2021 Influenza Vaccine 11/25/2024 COVID-19 Vaccine (1 - 2023-2 5 season) 2024 Hepatitis B Vaccines Aged Out No long er eligible based on patient's age to complete this topic Insurance [facility] Advance Directives * Full Code (Latest Code Status on File) Date Activated Date Inactivated Comments 02/24/2021 4:13 PM * Full Code Date Activated Date Inactivated Comments 02/23/2021 8:01 PM 02/24/2021 4:13 PM Care Teams Civilian [employer] Officer Relationship Specialty Start Date End Date Unknown Unknow Provider Address PCP - General 02/23/21
== END 2025-01-10 15:11 | disposition home or self-care (01) ==
LOC: HO.HMCC 14:25
PROVIDERS: PCP Internal Medicine; Visit Provider Internal Medicine
DX: Z00.01 Encounter for general adult medical examination with abnormal findings (principal); I10 Essential (primary) hypertension; E78.9 Disorder of lipoprotein metabolism, unspecified; E55.9 Vitamin D deficiency, unspecified; D63.8 Anemia in other chronic diseases classified elsewhere; M10.9 Gout, unspecified; G60.9 Hereditary and idiopathic neuropathy, unspecified

== ENCOUNTER 2025-01-10 14:24 | Outpatient (REF) | payer OTHER, SELFPAY ==
[2025-01-10 16:20] LABS: MANUAL DIFF FLAG NO
[2025-01-10 16:24] LABS: Hematocrit 34.1 % (42.0-52.0); Hemoglobin 11.7 g/dl (14.0-18.0); Imm Gran Abs Auto 0.03 X10*3/uL (0.00-0.03); Imm Gran Pct Auto 0.5 % (0.0-0.4); Lymphocytes Absolute Auto 2.2 X10*3/uL (1.2-4.9); Mean Corpuscular HGB Conc 34.3 g/dl (31.0-36.0); Mean Corpuscular Hemoglobin 31.2 pg (27.0-33.0); Mean Corpuscular Volume 90.9 fL (80.0-98.0); NRBC Abs Auto 0.000 X10*3/uL (0.0-0.012); NRBC Pct Auto 0.0 /100WBC (0.0-0.2); Platelet Count 210 X10*3/uL (160-400); Red Blood Count 3.75 X10*6/uL (4.60-5.80); White Blood Count 5.7 X10*3/uL (4.8-10.8)
[2025-01-10 17:00] LABS: Alanine Aminotransferase 28 U/L (0-40); Albumin Level 4.3 g/dL (3.5-5.0); Alkaline Phosphatase 87 U/L (39-117); Anion Gap 12 (12-20); Aspartate Amino Transferase 22 U/L (5-37); Blood Urea Nitrogen 33 mg/dL (9-16); Calcium 9.3 mg/dL (8.4-10.2); Carbon Dioxide 23 mmol/L (22-29); Chloride 109 mmol/L (96-108); Estimated Glomerular Filt Rate 54; Potassium 4.6 mmol/L (3.3-5.1); Sodium 139 mmol/L (135-145); Total Protein 7.1 g/dL (6.5-8.0); Uric Acid 7.3 mg/dL (3.4-7.0)
[2025-01-10 17:10] LABS: Ferritin 155 ng/mL (20-250)
[2025-01-10 17:15] LABS: Vitamin B12 336 pg/mL (200-900)
[2025-01-18 12:44] LABS: Vitamin D 25-OH, D2 <4 ng/mL; Vitamin D 25-OH, D3 38 ng/mL; Vitamin D 25-OH, Total 38 ng/mL (30-100)
== END 2025-01-10 14:25 | disposition home or self-care (01) ==
LOC: HO.HMGCLDS 14:24
PROVIDERS: PCP Internal Medicine; Visit Provider Internal Medicine
DX: Z00.01 Encounter for general adult medical examination with abnormal findings (principal); I10 Essential (primary) hypertension; E78.9 Disorder of lipoprotein metabolism, unspecified; E55.9 Vitamin D deficiency, unspecified; D63.8 Anemia in other chronic diseases classified elsewhere; M10.9 Gout, unspecified; G60.9 Hereditary and idiopathic neuropathy, unspecified
CPT/HCPCS: 36415; 80053; 82306; 82607; 82728; 84443; 84550; 85025; 96127; 99212; 99397

== ENCOUNTER 2025-01-23 13:41 | Outpatient (AMB) | payer OTHER, SELFPAY ==
--- NOTE | 2025-01-23 13:49 | A.OFFVIS_ITS ---
Vital Signs 01/23/25 13:51 Height 5 ft 10 in Weight 190 lb 7.67 oz BMI 27.3 BP 120/60 Blood Pressure Location Lt brachial Position Sitting Pulse 83 Pulse Source Pulse Oximeter Intake Visit Reasons: 3 mth f/up Intake Note: 3 mth f/up Magnet Placer Required: No Accompanied by: Self / Same As Patient Allergies Sulfa (Sulfonamide Antibiotics) (SULFA (SULFONAMIDE ANTIBIOTICS)) Allergy (Severe, Verified 01/10/25 14:29) ANAPHYLAXIS amlodipine Adverse Reaction (Mild, Verified 01/10/25 14:29) Edema Medication List - Last Reconciled 01/23/25 by Calixto Heller MD acetaminophen 325 mg PO ONCE PRN 90 days allopurinol 100 mg PO DAILY 90 days atenolol 25 mg PO DAILY [bath mat As directed] blood pressure monitor Check blood pressure daily or as needed cholecalciferol (vitamin D3) 25 mcg PO DAILY 90 days hydrocortisone 2.5% 1 appl topical BID PRN losartan 50 mg PO ONCE multivitamin 1 tab PO QAM 90 days rosuvastatin 5 mg PO .q48 [shower chair As directed] spironolactone 25 mg PO DAILY [Velcro back belt As directed] HPI Comments Details: [age] year gentleman with background history of hypertension. He had subdural hematoma in the past and had surgery in [facility]. He follows with GI closely. He has no symptoms currently. Denying chest discomfort shortness of breath. He previously had some palpitations in the past but nothing recently. He is active and walks regularly without any exertional symptoms. Blood pressure is elevated. He is taking atenolol 50 mg twice a day and losartan 50 mg twice a day. He had not tolerated hydrochlorothiazide and had some diarrhea due to that. Amlodipine previously was tried and he could not tolerate it due to peripheral edema. 09/26/2024: He is here for follow-up. On last visit we added spironolactone because his blood pressure was elevated. He is saying blood pressure has improved significantly. He was getting some headaches which have improved 2. His blood pressure in the office currently is low 100/60. On occasions she has noticed lightheadedness with standing up. 01/23/2025: He is here for follow-up. Blood pressure is well controlled with current regimen. He previously could not tolerate statins but with rosuvastatin 5 mg q.48h he has been doing well and has no GI issues. We will increase this i n due time but currently he plans to do colonoscopy and I think we continue same medications. [facility] Medical History Contusion of right hip Hyperlipidemia Hypertension Surgical History History of surgery of head Hx of esophagogastroduodenoscopy Hx of colonoscopy H/O hemorrhoidectomy Social History Household Members: Spouse Housing: Apartment Are you a primary home care attendant to a significant other at home: No Do you presently have visiting nurse or other home services: No Alcohol intake: never Patient Tobacco Use Status: Never used Tobacco e-Cigarette/Vaping Use: Never Used service: No Current occupational status: unemployed Cognitive needs: No Hearing needs: No Vision needs: No Review of Systems Const Denies chills, Denies fatigue, Denies fever(s), Denies frequent falls, Denies weakness, Denies weight gain and Denies weight loss ENT Denies dizziness Card Denies chest pain, Denies leg edema, Denies lightheadedness, Denies palpitations, Denies dyspnea and Denies dyspnea on exertion Resp Denies cough, Denies dyspnea and Denies dyspnea on exertion GI Denies hematochezia Musc Denies abnormal gait, Denies muscle weakness, Denies numbness, Denies radiating pain into limb and Denies tingling Neuro Denies abnormal gait, Denies dizziness, Denies frequent falls, Denies numbness, Denies tingling and Denies weakness Endo Denies fatigue and Denies palpitations Physical Exam Vital Signs: Last Vital Signs Pulse 83 01/23/25 13:51 BP 120/60 01/23/25 13:51 BMI result Body Mass Index 27.3 GENERAL APPEARANCE: in no acute distress, pleasant. NECK: no carotid bruit, no jugular venous distention. SKIN: no suspicious lesions, warm and dry. HEART: no murmurs, regular rate and rhythm. LUNGS: clear to auscultation bilaterally. ABDOMEN: soft, nontender. EXTREMITIES: no edema. PERIPHERAL PULSES: equal. NEUROLOGIC: No gross deficits, AAO X 3 Assessment & Plan Assessment & Plan (1) Hypertension: Code(s): I10 - Essential (primary) hypertension Category: Medical (2) Preop cardiovascular exam: Code(s): Z01.810 - Encounter for preprocedural cardiovascular examination Category: Medical Plan Pleasant 79 year gentleman who is here for follow-up. Blood pressure is well controlled on current regimen. He is taking atenolol 25 mg, losartan 50 mg and spironolactone 25 mg daily. He is tolerating the Crestor 5 mg every other day. He will see us back in 3 months. He wishes to undergo colonoscopy. He is low to intermediate risk for perioperative complications. Thank you for allowing me to participate in the care of your patient. Please feel free to contact me if you have any questions. Coding Level of Care Code Est Pt Level 3 (98752) Diagnoses Hypertension I10 Preop cardiovascular exam Z01.810
[2025-01-23 13:51] VITALS: BP 120/60; PULSE 83; BMI 27.3
--- OUTSIDE RECORDS SUMMARY | 2025-01-23 15:18 | XMS_ITS | Clinical Summary ---
Author Organization [facility] Address [address] [place] [address] Care Team Providers Care Automatic Trimming Sewer Name Role Phone Unknown Primary Care Provider [...] age to complete this topic Insurance [facility] Advance Directives * Full Code (Latest Code Status on File) Date Activated Date Inactivated Comments 02/24/2021 4:13 PM * Full Code Date Activated Date Inactivated Comments 02/23/2021 8:01 PM 02/24/2021 4:13 PM Care Teams Automatic Trimming Sewer Relationship Specialty Start Date End Date Unknown Unknow Provider Address PCP - General 02/23/21
== END 2025-01-23 14:11 | disposition home or self-care (01) ==
LOC: HO.HCS 13:42
PROVIDERS: PCP Internal Medicine; Visit Provider Internal Medicine Cardiovascular Disease
DX: I10 Essential (primary) hypertension (principal); Z01.810 Encounter for preprocedural cardiovascular examination
CPT/HCPCS: 99213

== ENCOUNTER → 2025-01-23 13:41 | Outpatient (BNVA) | payer OTHER, SELFPAY | PROVIDERS: PCP Internal Medicine; Visit Provider Internal Medicine Cardiovascular Disease | DX: Z01.810 Encounter for preprocedural cardiovascular examination (principal); I10 Essential (primary) hypertension | CPT/HCPCS: 99212 ==

== ENCOUNTER 2025-04-10 13:06 | Day surgery (SDC) | payer OTHER, SELFPAY ==
--- NOTE | 2025-04-05 13:57 | HO.ANESPROP2 ---
Documented by User: Sharmaine Wharton NP 04/05/25 14:02 HPI - Anesthesia Eval Consult details Narrative: 79 yr old male for colonoscopy [place] [facility] [place]: at 12/2024 f/u visit he denies CP or SOB; He is low to intermediate risk for perioperative complications . H/O subdural hematoma: had surgery in [facility] Active Problems Active Problems: All Active Problems (Updated 01/23/25 @ 14:10 by Calixto Heller MD) Preop cardiovascular exam (Acute) Encounter for general adult medical examination with abnormal findings (Acute) Hypertension (Acute) Arm pain, left (Acute) Toenail fungus (Acute) Contusion of right hip (Acute) URI, acute (Acute) Dyspepsia (Acute) Elevated blood pressure reading (Acute) Dietary counseling (Acute) Palpitations (Acute) Elevated blood pressure reading with diagnosis of hypertension (Acute) Injury of lower leg, right (Acute) Paresthesia of both feet (Acute) Cataract, bilateral (Acute) Pre-op evaluation (Acute) Elevated serum creatinine (Acute) Chronic edema (Acute) Lumbar pain (Acute) Skin tag (Acute) Wrist pain, right (Acute) Vitamin D deficiency (Acute) Gouty arthritis of right hand (Acute) COVID-19 (Acute) Subconjunctival hemorrhage of left eye (Acute) Diarrhea (Acute) Gouty arthritis of toe of left foot (Acute) Peripheral neuropathy (Acute) Paresthesia of right foot (Acute) Visit for wound check (Acute) Stapled skin wound (Acute) Hospital discharge follow-up (Acute) Weakness (Acute) Difficulty walking (Acute) Uncontrolled hypertension (Acute) Subdural hematoma, nontraumatic (Acute) Otitis media of right ear (Acute) Acute gout (Acute) History of colon polyps (Acute) Helicobacter pylori gastritis (Acute) H/O hemorrhoidectomy (Acute) Gouty arthritis (Acute) Hospital discharge follow-up (Acute) Anemia (Acute) Lipid disorder (Acute) Hypertension, essential (Acute) Establishing care with new doctor, encounter for (Acute) Past Medical History Medical History (Updated 04/10/25 @ 14:15 by Brunilda Arnold RN) Bilateral cataracts Contusion of right hip Hyperlipidemia Hypertension Family History Family history of problems with anesthesia: No Surgical History Surgical History (Updated 04/10/25 @ 14:15 by Brunilda Arnold RN) History of surgery of head Hx of esophagogastroduodenoscopy Hx of colonoscopy H/O hemorrhoidectomy History of Problems with Anesthesia: No Social History Social History Household Members: Spouse Housing: Apartment Are you a primary urgent care technician to a significant other at home: No Do you presently have visiting nurse or other home services: No Alcohol intake: never Patient Tobacco Use Status: Never used Tobacco e-Cigarette/Vaping Use: Never Used Use of substances other than those prescribed or required for medical reasons: No Are you DNR?: No Advance Directives: No Advance Directives Information Provided: Yes service: No Current occupational status: unemployed Cognitive needs: No Hearing needs: No Vision needs: No Meds Allergies Allergy/AdvReac Type Severity Reaction Status Date / Time Sulfa (Sulfonamide Allergy Severe ANAPHYLAXIS Verified 01/10/25 14:29 Antibiotics) (SULFA (SULFONAMIDE ANTIBIOTICS)) amlodipine AdvReac Mild Edema Verified 01/10/25 14:29 Home Medications ?Medication ?Instructions ?Recorded ?Confirmed ?Last Taken ?Type losartan 50 mg tablet 50 mg PO ONCE 01/10/25 01/23/25 Unknown History Exam Pertinent Lab Results Pertinent Lab Results: Laboratory Tests 01/10/25 15:15 WBC 5.7 RBC 3.75 L Hgb 11.7 L Hct 34.1 L Plt Count 210 Sodium 139 Potassium 4.6 BUN 33 H Creatinine 1.29 Narrative Narrative: ECHO 05/2024 Conclusions: - The left ventricular systolic function is normal. The calculated ejection fraction is 65% by biplane method. - The mid inferoseptal segment is hypokinetic. - No obvious valvular pathology seen on this study. Findings Left Ventricle Normal left ventricular cavity size. There is normal left ventricular wall thickness. The left ventricular systolic function is normal. The calculated ejection fraction is 65% by biplane method. There is evidence of regional wall motion abnormalities. Diastolic function is normal for age. Wall Motion Rest Echo Findings The mid inferoseptal segment is hypokinetic. Right Ventricle Normal right ventricular cavity size and systolic function. Assessment and Plan Final Anesthetic Review Family History of Problems with Anesthesia: No History of Problems with Anesthesia: No Documented by User: Annette Joiner MD 04/10/25 14:32 [facility] Past Medical History Medical History (Updated 04/10/25 @ 14:15 by Brunilda Arnold RN) Bilateral cataracts Contusion of right hip Hyperlipidemia Hypertension Surgical History Surgical History (Updated 04/10/25 @ 14:15 by Brunilda Arnold RN) History of surgery of head Hx of esophagogastroduodenoscopy Hx of colonoscopy H/O hemorrhoidectomy Social History Social History Household Members: Spouse Housing: Apartment Are you a primary urgent care technician to a significant other at home: No Do you presently have visiting nurse or other home services: No Alcohol intake: never Patient Tobacco Use Status: Never used Tobacco e-Cigarette/Vaping Use: Never Used Use of substances other than those prescribed or required for medical reasons: No Are you DNR?: No Advance Directives: No Advance Directives Information Provided: Yes service: No Current occupational status: unemployed Cognitive needs: No Hearing needs: No Vision needs: No Meds Allergies Allergy/AdvReac Type Severity Reaction Status Date / Time Sulfa (Sulfonamide Allergy Severe ANAPHYLAXIS Verified 01/10/25 14:29 Antibiotics) (SULFA (SULFONAMIDE ANTIBIOTICS)) amlodipine AdvReac Mild Edema Verified 01/10/25 14:29 Home Medications ?Medication ?Instructions ?Recorded ?Confirmed ?Last Taken ?Type losartan 50 mg tablet 50 mg PO ONCE 01/10/25 01/23/25 Unknown History Exam Airway Mallampati Class: II TM Dist: >3cm Neck ROM: Full Denture: Upper and Lower Heart: rrr Lungs: cta Assessment and Plan Assessment Anesthesia Assessment: Anesthesia Plan Discussed and Chart Reviewed Final Anesthetic Review NPO: Yes ASA Class: II Final Preanesthetic Review: No Changes in Pt Med Stat, Meds/Allgs Chart Reviewed and Consent Obtained/Reviewed Patient Risk: Low Procedure Risk: Low Anesthetic Plan Anesthetic Plan: MAC: Disposition: Standard PACU
--- NOTE | 2025-04-10 11:17 | MHC.SHP ---
Pre-Procedural Eval Section A - 24 Hr Update-Section A only Date of Service: 04/10/25 The patient is an INPATIENT: No The patient has been examined within 24 hours of the surgical procedure. The History & Physical has been completed within 30 days and I have reviewed it.: No Section B - Complete if H&P > 30 days Chief Complaint: Surveillance for colon polyps Relevant Family History (Specify if Yes): No Relevant Social History: None Present Medications: see Short Stay Collaborative assessment Medical History: Significant History (Hypertension, hyperlipidemia) History of Previous Operations: Relevant previous surgery/procedure and date(s) (History of surgery of head Hx of esophagogastroduodenoscopy Hx of colonoscopy H/O hemorrhoidectomy) Allergies: Allergies Allergy/AdvReac Type Severity Reaction Status Date / Time Sulfa (Sulfonamide Allergy Severe ANAPHYLAXIS Verified 01/10/25 14:29 Antibiotics) (SULFA (SULFONAMIDE ANTIBIOTICS)) amlodipine AdvReac Mild Edema Verified 01/10/25 14:29 Review of Systems Sugical H&P ROS: Negative: Constitution, Cardiovascular, Respiratory and Gastrointestinal Exam Surgical H&P Exam: Normal: Heart, Normal: Lungs, Normal: Extremities and Normal: Abdomen Plan Diagnosis/Plan: Unchanged I have reviewed the history and physical and performed a pertinent physical examination on my patient. No changes have occurred unless specified. Time Spent With Patient Time: Total time managing care of this patient today ____ minutes.
[2025-04-10 14:19] VITALS: BMI 27.0
[2025-04-10 14:22] VITALS: BP 137/70; PULSE 57; RESP 16; TEMP 36.4; O2SAT 97
[2025-04-10] MEDS: Lactated Ringers 1,000 ML 100 ML IVCONT (14:38)
--- NOTE | 2025-04-10 15:29 | P.OPN-COLO_ITS ---
Colonoscopy Operative Note Operative Note Date of Service: 04/10/25 Narrative: COLONOSCOPY TILL CECUM WITH BIOPSIES AND SNARE POLYPECTOMY Pre-op diagnosis: Surveillance for colon polyps. Post-op diagnosis:? Colon polyps, Diverticulosis, hemorrhoids Endoscopist:? Turner Torres MD Anesthesia:?MAC Consent: Indications for the procedure and potential complications of bleeding, perforation, reaction to medications and missed diagnosis were discussed with the patient and informed consent was obtained. Instrument: Olympus CF H 190 L variable stiffness adult colonoscope Monitoring: Vital signs and clinical assessment, intermittent blood pressure monitoring, continuous EKG monitoring, Pulse oximetry and Carbon Dioxide monitoring were done throughout the procedure. Please see anesthesia flowsheet. Colon withdrawl time was 25 minutes. Procedure: The patient was placed in the left lateral decubitis position and pre-procedure medications were administered. After a digital rectal examination of the ano-rectum, the video colonoscope was inserted into the rectum and advanced through the colon to the cecum. The colonoscope was slowly withdrawn in a retrograde panoramic fashion and the colon mucosa was carefully examined including a retroflexed view of the rectum. Findings and interventions are described below. Procedure Difficulty: Colon was long and tortuous and there was some loop formation. LLQ pressure was applied to intubate the ascending colon Findings: Terminal Ileum: Not evaluated Cecum: Normal Ascending Colon: A 4-5 mm sessile polyp in the distal AC - removed with a cold snare Transverse Colon: A 3-4 mm sessile polyp - removed with a cold biopsy. A 6-7 mm sessile polyp - removed with a cold snare and polyp was not retrieved Descending Colon: Normal Sigmoid Colon: Moderate diverticulosis Rectum: Normal Ano-rectum: Moderate internal hemorrhoids Colon preparation: Good after copious irrigation . [place] Bowel Preparation Scale Right colon; 2 Transverse colon: 2 Left colon; 2 (0 = Unprepared colon segment with mucosa not seen due to solid stool that cannot be cleared. 1 = Portion of mucosa of the colon segment seen, but other areas of the colon segment not well seen due to staining, residual stool and/or opaque liquid. 2 = Minor amount of residual staining, small fragments of stool and/or opaque liquid, but mucosa of colon segment seen well. 3 = Entire mucosa of colon segment seen well with no residual staining, small fragments of stool or opaque liquid) Impression and Post Procedure Diagnosis: Colonoscopy Findings: Three small polyps were removed Moderate diverticulosis seen in the sigmoid colon Moderate hemorrhoids on retroflexed exam. Plan: Pt has a FU appointment on 05/18/[address] Torres Repeat Colonoscopy in 3-5 years if polyps are adenomatous and due to history of adenomatous colon polyps. (Dulcolax 10 mg daily x 5 days prior to next colon appointment and adult colonoscope) Above findings were reviewed with the patient and relevant handouts were given and the discharge area.
[2025-04-10 15:32] VITALS: BP 105/49; PULSE 68; RESP 16; TEMP 36.3; O2SAT 93
[2025-04-10 15:35] VITALS: BP 104/56; PULSE 69; RESP 17; O2SAT 94
[2025-04-10 15:45] VITALS: BP 102/62; PULSE 67; RESP 16; TEMP 36.2; O2SAT 97
== END 2025-04-10 16:22 | disposition home or self-care (01) ==
PROVIDERS: PCP Internal Medicine; Visit Provider Internal Medicine Gastroenterology
PROC: 0DJD8ZZ Inspection of Lower Intestinal Tract, Via Natural or Artificial Opening Endoscopic (ICD-10-PCS; CPT 45378; principal; 2025-04-10 14:20)
DX: Z12.11 Encounter for screening for malignant neoplasm of colon (principal); Z86.0101 Personal history of adenomatous and serrated colon polyps; K57.30 Diverticulosis of large intestine without perforation or abscess without bleeding; K64.8 Other hemorrhoids; D12.2 Benign neoplasm of ascending colon; K63.5 Polyp of colon
CPT/HCPCS: 45385; 88305; J1596; J2003; J2704

== ENCOUNTER → 2025-04-10 13:06 | Outpatient (BNV) | payer OTHER, SELFPAY | PROVIDERS: PCP Internal Medicine; Visit Provider Internal Medicine Gastroenterology | DX: Z12.11 Encounter for screening for malignant neoplasm of colon (principal); K63.5 Polyp of colon; K57.30 Diverticulosis of large intestine without perforation or abscess without bleeding; K64.8 Other hemorrhoids | CPT/HCPCS: 45385 ==

== ENCOUNTER 2025-04-12 12:48 | Outpatient (AMB) | payer OTHER, SELFPAY ==
--- NOTE | 2025-04-12 12:49 | A.OFFPC_ITS ---
Vital Signs 04/12/25 12:50 Height 5 ft 10 in Weight 190 lb BMI 27.3 BP 120/60 Blood Pressure Location Rt brachial Position Sitting Pulse 67 Pulse Source Pulse Oximeter Pulse Oximetry (%) 96 Intake Visit Reasons: 3 mo follow up Allergies Sulfa (Sulfonamide Antibiotics) (SULFA (SULFONAMIDE ANTIBIOTICS)) Allergy (Severe, Verified 04/12/25 12:50) ANAPHYLAXIS amlodipine Adverse Reaction (Mild, Verified 04/12/25 12:50) Edema Medication List - Last Reconciled 04/12/25 by Kaitlyn Bowman MD acetaminophen 325 mg PO ONCE PRN 90 days allopurinol 100 mg PO DAILY 90 days atenolol 25 mg PO DAILY [bath mat As directed] blood pressure monitor Check blood pressure daily or as needed cholecalciferol (vitamin D3) 25 mcg PO DAILY 90 days hydrocortisone 2.5% 1 appl topical BID PRN losartan 50 mg PO ONCE multivitamin 1 tab PO QAM 90 days rosuvastatin 5 mg PO .q48 [shower chair As directed] spironolactone 25 mg PO DAILY [Velcro back belt As directed] Tobacco use date assessed: 09/16/24 Fall risk assessment: No Falls in past year Last assessed Fall Risk: 04/12/25 Dental Screening Dental Screen Date: 09/16/24 HPI HPI Comments History of Present Illness Details History of Present Illness The patient is a 79 year old male presenting for a follow-up visit for chronic disease management and to address new complaints of foot fungus and pruritus. Hypertension: - The patient is taking spironolactone 2 5 mg for management of blood pressure. Hyperlipidemia: - The patient takes rosuvastatin for man agement of hyperlipidemia. Gout: - The patient reports taking allopurinol . Tinea Pedis: - The patient reports a foot fungus and requested a medication for it. Xerosis Cutis: - The patient reports experiencing pruri tus for the last 1-2 months, attributed to dry skin, and is not currently applying any topical treatments. Chronic Kidney Disease: - It was noted that the patient's kidney function has slightly declined and requires monitoring. Medical History: - Hypertension - Hyperlipidemia - Gout - Vitamin D deficiency - Tinea pedis - Reduced kidney function Medications: - Spironolactone 25 mg for hypertension - Rosuvastatin for hyperlipidemia - Allopurinol - Vitamin D Social History: - The patient is currently living with h is son Diagnostic Results: - Labs: Kidney function is noted to be s lightly reduced. PFSH Medical History Bilateral cataracts Contusion of right hip Hyperlipidemia Hypertension Surgical History History of surgery of head Hx of esophagogastroduodenoscopy Hx of colonoscopy H/O hemorrhoidectomy Social History Household Members: Spouse Housing: Apartment Are you a primary wound care center consultant to a significant other at home: No Do you presently have visiting nurse or other home services: No Alcohol intake: never Patient Tobacco Use Status: Never used Tobacco e-Cigarette/Vaping Use: Never Used service: No Current occupational status: unemployed Cognitive needs: No Hearing needs: No Vision needs: No Questionnaire Thrive Questionnaire Date Thrive assessed: 01/10/25 I am a: Patient What is your living situation today?: I do not have a steady places to live I [place] staying [place] [facility] [place] Within the past 12 months, did the food you bought not last and you didn't have the money to get more?: I choose not to answer this question Within the past 12 months, did you worry whether your food would run out before you got money to buy more?: Never true Do you have trouble paying for medicines?: No Do you have trouble getting transportation to medical appointments?: No Do you have trouble paying your heating and electricity bill?: No Do you have trouble taking care of your child, family member or friend?: No Do you have trouble with day-to-day activities such as bathing, preparing meals, shopping, managing finances, etc.?: Yes Are you currently unemployed and looking for a job?: No Are you interested in more education?: No THRIVE Score: 1 EUGENE-7 AMB Questionnaire EUGENE-7 Date EUGENE - 7 assessed: 09/16/24 Source: Developed by Drs. Solomon Talamantes, Margarita Em, Rudi Vinson and colleagues, with an educational katie from [employer]. Review of Systems Narrative Review of Systems . - General: No fever no chills - Neurological: No headaches no dizziness - Ear nose throat: No sore throat no hearing difficulty no ear pain - Cardiovascular: No syncope, no chest pain, no palpitations - Gastrointestinal: No nausea vomiting or diarrhea - Endocrine: No polyuria polydipsia no heat intolerance - Genitourinary: No dysuria , no blood in urine Physical exam (Primary Care) Vital Signs: Last Vital Signs Pulse 67 04/12/25 12:50 BP 120/60 04/12/25 12:50 Pulse Ox 96 04/12/25 12:50 BMI result Body Mass Index 27.3 Tobacco/Smoking Status: Tobacco use Status Tobacco use date assessed 09/16/24 04/12/25 12:54 Patient Tobacco Use Status Never used Tobacco 04/12/25 12:54 e-Cigarette/Vaping Use Never Used 04/12/25 12:54 Thrive Assessment: Date of Thrive Assessment Date Thrive assessed 01/10/25 04/12/25 12:54 Narrative Physical Exam General: No acute distress HEENT: No acute findings Neck: Supple Respiratory system: Able to talk in full sentences, no audible wheeze Cardiovascular: S1-S2 regular in rate and rhythm Gastrointestinal: No pain Extremities: No new findings CONSULTING PRACTICE DIRECTOR: Alert awake oriented x3 motor intact Skin: Dryness noted, advised to apply olive oil after shower for dryness Coding Level of Care Code Est Pt Level 4 (80577) Add On Problem Visit Only Diagnoses Hypertension, essential I10 Xerosis cutis L85.3 Toenail fungus B35.1 Lipid disorder E78.9 Vitamin D deficiency E55.9 Gouty arthritis M10.9 Idiopathic peripheral neuropathy G60.9 Peripheral neuropathy type: idiopathic neuropathy, unspecified Assessment & Plan Assessment & Plan (1) Hypertension, essential: Code(s): I10 - Essential (primary) hypertension Category: Medical (2) Xerosis cutis: Code(s): L85.3 - Xerosis cutis Category: Medical (3) Toenail fungus: Code(s): B35.1 - Tinea unguium Category: Medical (4) Lipid disorder: Code(s): E78.9 - Disorder of lipoprotein metabolism, unspecified Category: Medical (5) Vitamin D deficiency: Code(s): E55.9 - Vitamin D deficiency, unspecified Category: Medical (6) Gouty arthritis: Code(s): M10.9 - Gout, unspecified Category: Medical (7) Peripheral neuropathy: Code(s): G62.9 - Polyneuropathy, unspecified Category: Medical Qualifiers: Peripheral neuropathy type: idiopathic neuropathy, unspecified Qualified Code(s): G60.9 - Hereditary and idiopathic neuropathy, unspecified Plan Problem List - Hypertension - Hyperlipidemia - Gout - Vitamin D deficiency - Chronic kidney disease - Tinea pedis - Xerosis cutis - Preventative care: Follow-up visit Plan - For xerosis and pruritus, advised the patient to apply olive oil to his entire body immediately after showering, before towel drying. - A medication will be prescribed for the patient's foot fungus. which was prescribed orginally by [employer] for toe nail fungus - The patient will undergo a blood test in April to monitor his kidney function. - Continue current medications, including spironolactone, rosuvastatin, allopurinol, and vitamin D. - The patient is to schedule a follow-up appointment in three months. Medications: New ciclopirox 0.77% 1 appl topical BID 30 grams 0RF 4 weeks
[2025-04-12 12:50] VITALS: BP 120/60; PULSE 67; O2SAT 96; BMI 27.3
--- OUTSIDE RECORDS SUMMARY | 2025-04-12 16:57 | XMS_ITS | Clinical Summary ---
Author Organization [facility] Address [address] [place] [address] Care Team Providers Care Clay Thrower Name Role Phone Unknown Primary Care Provider [...] Vaccine (1 of 2) 1996 RSV Vaccine 50 years and old er and Patients (1 - 1-dose 75+ series) 2021 Influenza Vaccine 11/25/2024 COVID-19 Vaccine (1 - 2024-2 6 season) 2024 Hepatitis B Vaccines Aged Out No long er eligible based on patient's age to complete this topic Insurance [facility] Advance Directives * Full Code (Latest Code Status on File) Date Activated Date Inactivated Comments 02/24/2021 4:13 PM * Full Code Date Activated Date Inactivated Comments 02/23/2021 8:01 PM 02/24/2021 4:13 PM Care Teams Clay Thrower Relationship Specialty Start Date End Date Unknown Unknow Provider Address PCP - General 02/23/21
== END 2025-04-12 13:06 | disposition home or self-care (01) ==
LOC: HO.HMCC 12:49
PROVIDERS: PCP Internal Medicine; Visit Provider Internal Medicine
DX: I10 Essential (primary) hypertension (principal); L85.3 Xerosis cutis; B35.1 Tinea unguium; E78.9 Disorder of lipoprotein metabolism, unspecified; E55.9 Vitamin D deficiency, unspecified; M10.9 Gout, unspecified; G60.9 Hereditary and idiopathic neuropathy, unspecified

== ENCOUNTER → 2025-04-12 12:48 | Outpatient (BNVA) | payer OTHER, SELFPAY | PROVIDERS: PCP Internal Medicine; Visit Provider Internal Medicine | DX: I12.9 Hypertensive chronic kidney disease with stage 1 through stage 4 chronic kidney disease, or unspecified chronic kidney disease (principal); E78.5 Hyperlipidemia, unspecified; M10.9 Gout, unspecified; B35.3 Tinea pedis; L85.3 Xerosis cutis; N18.9 Chronic kidney disease, unspecified; B35.1 Tinea unguium; E78.9 Disorder of lipoprotein metabolism, unspecified; E55.9 Vitamin D deficiency, unspecified; G60.9 Hereditary and idiopathic neuropathy, unspecified | CPT/HCPCS: 99212 ==